=== PATIENT | male | born 1980 | race African-American/Black ===

== ENCOUNTER 2020-05-30 11:24 | Emergency (ER) | payer MEDICAID, SELFPAY ==
--- NOTE | ~2020-05-30 | CT_ITS ---
EXAMINATION: CT lumbar spine wo con DATE: 05/30/2020 13:00 INDICATION: Low back pain. TECHNIQUE: Computed tomography (CT) of the lumbar spine was performed without intravenous contrast. A utomated exposure control and iterative reconstruction technique were employed. The dose-length produ ct was 951.76 mGy-cm. COMPARISON: None FINDINGS: There is 6 degrees levocurvature of lumbar spine. Vertebral body heights are normal. There is mildly decreased disc height at L4-L5 and moderately decreased disc height at L5-S1. Osseous centr al spinal canal is developmentally small from L2 to L4. The following disc levels are specifically di scussed: L1-L2: The disc does not extend beyond the endplate margin. There is mild bilateral facet joint osteo arthritis. There is no neural foraminal stenosis. There is no central canal stenosis. L2-L3: The disc is bulging. There is mild bilateral facet joint osteoarthritis. There is no neural fo raminal stenosis. There is mild central canal stenosis. L3-L4: The disc is bulging. There is mild bilateral facet joint osteoarthritis. There is mild bilater al neural foraminal stenosis. There is mild central canal stenosis. L4-L5: The disc is bulging. There is mild bilateral facet joint osteoarthritis. There is mild bilater al neural foraminal stenosis. There is moderate central canal stenosis. L5-S1: The disc is bulging. There is mild bilateral facet joint osteoarthritis. There is mild bilater al neural foraminal stenosis. There is mild central canal stenosis. IMPRESSION: 1. Moderate lumbar spondylosis. Reviewed, dictated and finalized at location A.
[2020-05-30 11:31] VITALS: BP 152/100; PULSE 85; RESP 18; TEMP 36.8; O2SAT 99
--- NOTE | 2020-05-30 12:36 | PC.NURSE ---
LISANDRA Guajardo at bedside for assessment.
--- NOTE | 2020-05-30 12:37 | ED.BACK ---
HPI - Back Pain/Injury General Chief Complaint: Back Pain/Injury Stated Complaint: my back is out Time Seen by Provider: 05/30/20 12:18 Source: patient Mode of arrival: wheelchair Limitations: no limitations History of Present Illness HPI Narrative: This is a 40-year-old male that presents the emergency department for low back pain since last night. Reports a history of bulging disks. Reports he is currently seeing a spine surgeon for this. Reports he had an injection in the back recently for his pain and will possibly be getting surgery. No new injuries or trauma. Reports a flare of his back pain since last night. Pain radiates down the legs. Is worse with movement and relieved with rest. He has not taken any pain medication yet today. Denies fever, saddle anesthesia, or bowel/bladder incontinence. Related Data Home Medications Medication Instructions Recorded Confirmed losartan 05/30/20 Allergies Allergy/AdvReac Type Severity Reaction Status Date / Time No Known Allergies Allergy Verified 05/30/20 13:41 Review of Systems Review of Systems: Narrative: CONSTITUTIONAL: Denies fever SKIN: Denies rash MUSCULOSKELETAL: Reports back pain, joint pain, and myalgia. NEUROLOGIC: Denies numbness, or weakness. All systems reviewed & are unremarkable except as noted in HPI and below PMFSH Past Medical History Medical History (Updated 05/30/20 @ 15:10 by Pippa Padilla PA-C) History of hypertension Social History Social History (Updated 05/30/20 @ 12:41 by Pippa Padilla PA-C) Substance use: never Exam Narrative: Exam Narrative: GENERAL: Well-appearing, well-nourished, and in no acute distress. HEAD: Normocephalic, atraumatic. EYES: EOMI. CHEST: Clear to auscultation. No respiratory distress. No wheezes rales or rhonchi HEART: Regular rate and rhythm. No murmur heard. Normal peripheral pulses. BACK: No midline spinal tenderness EXTREMITIES: Normal range of motion. No edema. Strength equal in bilateral lower extremities (5/5) SKIN: Warm, dry, no rash. NEURO: No focal deficits. Alert and oriented x3. PSYCH: Normal mood and affect Course Vital Signs Vital signs: Vital Signs Temperature 98.3 F 05/30/20 11:31 Pulse Rate 85 05/30/20 11:31 Respiratory Rate 18 05/30/20 11:31 Blood Pressure 152/100 H 05/30/20 11:31 Pulse Oximetry 99 05/30/20 11:31 Temperature 98.3 F 05/30/20 11:31 Pulse Rate 68 05/30/20 13:40 Respiratory Rate 18 05/30/20 13:40 Blood Pressure 160/120 H 05/30/20 13:40 Pulse Oximetry 97 05/30/20 13:40 MDM - Back Pain/Injury MDM Narrative Medical decision making narrative: Patient presents to the emergency department for low back pain since yesterday. No injury or trauma. Patient did report history of vertebral disc disease. Patient is neurologically intact. CT scan of the lumbar spine shows moderate lumbar spondylosis. Patient given Valium and Toradol in the ED with improvement. Is still having some difficulty ambulating. Patient reports he would like to go home and will follow-up with his spine surgeon. Would not like to stay for any further evaluation or pain control. Patient is stable and felt appropriate for further outpatient evaluation. He was given warnings to return to the ER Imaging Data Radiologist's impression: ITS Impressions Lumbar Spine CT 05/30/20 13:19 IMPRESSION: 1. Moderate lumbar spondylosis. Critical Care Time Critical Care Time Critical Care Time: No Discharge Plan Discharge Clinical Impression: Lumbar radiculopathy Patient Disposition: Home, Self-Care Condition: Stable Instructions: Back Pain (ED) Additional Instructions: Return to the ER if you experience weakness, numbness, bowel/bladder incontinence, or any other symptoms that are concerning to you Rest, use ice/heat, take anti-inflammatories (Aleve, Ibuprofen, Naproxen, etc) or Tylenol as needed for pain as well as muscle rel
[2020-05-30] MEDS: ACETAMINOPHEN 500 MG TABLET 1000 MG PO (13:29)
[2020-05-30] MEDS: KETOROLAC (*BKC) 60 MG/2 ML VIAL IM (13:30)
[2020-05-30 13:40] VITALS: BP 160/120; PULSE 68; RESP 18; O2SAT 97
[2020-05-30 16:00] VITALS: BP 153/90; PULSE 58; RESP 18; TEMP 36.9; O2SAT 100
== END 2020-05-30 16:03 | disposition home or self-care (01) ==
PROVIDERS: Emergency Provider Emergency Medicine; PCP Internal Medicine
DX: M47.26 Other spondylosis with radiculopathy, lumbar region (principal); I10 Essential (primary) hypertension
CPT/HCPCS: 72131; 96372; 99284; A9270; J1885; J3360

== ENCOUNTER 2020-06-06 09:26 | Observation (INO) | payer MEDICAID, SELFPAY ==
--- NOTE | 2020-06-06 09:25 | ED.BACK ---
HPI - Back Pain/Injury General Chief Complaint: Back Pain/Injury Stated Complaint: Back pain History of Present Illness HPI Narrative: Intermittent back pain since work injury in 2019. He had seen a surgeon and surgery was recommended. He did not have a way to pay. He had back injections and things had been better. Worse for the past few weeks. Seen here last tuesday. CT of the lumbar spine showed spondolysis. He was sent home with valium and medrol dose pack. Thought things were getting better. Now he is not able to walk or do daily activities to take care of himself due to the pain. Related Data Home Medications Medication Instructions Recorded Confirmed losartan 05/30/20 Allergies Allergy/AdvReac Type Severity Reaction Status Date / Time No Known Allergies Allergy Verified 06/06/20 09:36 Review of Systems Review of Systems: All systems reviewed & are unremarkable except as noted in HPI and below Constitutional: Constitutional: Denies fever(s) Gastrointestinal: Gastrointestinal: Denies abdominal pain and Denies nausea Genitourinary: Genitourinary: Denies hematuria and Denies dysuria Musculoskeletal: Musculoskeletal: Reports back pain Neurologic: Denies dizziness and Denies focal weakness [facility] Past Medical History Medical History History of hypertension Family History Family History Grandparent Diabetes mellitus Hypertension Mother Leukemia Social History Social History Smoking status: Never smoker Alcohol intake: unknown Substance use: never Substance use type: prescription drug Gender identity (if verbalized by the patient): Male Spiritual care concerns: No Exam Const: General: healthy appearing, no acute distress and alert Orientation/consciousness: patient oriented x3 HENMT: Head: normal to inspection Neck: Neck: normal visual inspection and no lymphadenopathy Chest: Chest palpation & inspection: no tenderness Resp: Effort & Inspection: normal respiratory effort Auscultation: clear to auscultation bilaterally, no rales, no rhonchi and no wheezes Cardio: Jugular venous distension: no JVD Rate: regular rate Rhythm: regular rhythm Heart sounds: no murmurs GI: Inspection: non-distended GI Palp: Yes Soft to palpation and No Tenderness to palpation present (GI) Back/Spine/Pelvis: Other: Lumbar paraspinal tnederness Skin: General skin exam: normal color Neuro: General: patient oriented x3 and moves all extremities Speech: normal speech Extrem: General: no edema Psych: Appearance: well kempt Affect: normal affect Course Vital Signs Vital signs: Vital Signs Temperature 37.2 C 06/06/20 09:31 Pulse Rate 102 H 06/06/20 09:31 Respiratory Rate 18 06/06/20 09:31 Blood Pressure 162/104 H 06/06/20 09:31 Pulse Oximetry 98 06/06/20 09:31 Temperature 36.7 C 06/06/20 12:26 Pulse Rate 84 06/06/20 12:26 Respiratory Rate 16 06/06/20 12:26 Blood Pressure 156/92 H 06/06/20 12:26 Pulse Oximetry 100 06/06/20 12:26 MDM - Back Pain/Injury MDM Narrative Medical decision making narrative: No indication for emergent imaging. Will admit for pain control and physical therapy evaluation. Differential Diagnosis Differential diagnosis: Likely lumbar radiculopathy, sciatica and other (disc herniation) Medical Records Attestation: I reviewed the patient's medical records. Lab Data Attestation: I reviewed the patient's lab results. Discharge Plan Discharge Clinical Impression: Low back pain Patient Disposition: Still a Patient Condition: Stable Interventions: Discharge Disposition Last Done: 06/06/20 12:47 IV Stop Time Documented Last Done: 06/06/20 12:47 Discharge Date/Time: 06/06/20 12:48
[2020-06-06 09:31] VITALS: BP 162/104; PULSE 102; RESP 18; TEMP 37.2; O2SAT 98
[2020-06-06] MEDS: MORPHINE SULFATE 10 MG/ML AMP 4 MG IM (09:59)
[2020-06-06 11:40] VITALS: BP 156/101; PULSE 75; RESP 18; O2SAT 100
[2020-06-06 12:26] VITALS: BP 156/92; PULSE 84; RESP 16; TEMP 36.7; O2SAT 100
[2020-06-06 13:00] VITALS: BP 148/90; PULSE 75; RESP 18; TEMP 36.7; O2SAT 95
--- NOTE | 2020-06-06 13:00 | PC.NURSE ---
This patient, Charisse Ambrosio, was admitted to [facility] Surg Room 309-01. Patient/family oriented to hospital policies and general routines including ID bracelet, bed and alarms, visiting hours, pain management, procedures, bathroom and other care routines, personal items, smoking policy, room service/diet, and visiting hours. Valuables list has been completed. Information on how to activate the Rapid Response Team has been discussed. Patient/Family are encouraged to report perceived risks to care and to ask questions if they do not understand what they are told or what they should do.
[2020-06-06 13:18] VITALS: BMI 32.6
[2020-06-06] MEDS: MORPHINE SULFATE 4 MG/ML INJ 2 MG IV PUSH (16:46)
--- NOTE | 2020-06-06 17:35 | PC.NURSE ---
Dr Rodgers okayed patient to go home.
--- NOTE | 2020-06-06 18:31 | PM.IMHP ---
H&P: HPI History of Present Illness Date/Time: 06/06/20 18:31 Chief complaint: Intractable back pain Narrative: Charisse Ambrosio is a 40 year old male who had a back injury at work last year in 2019. The patient stated that he was kneeling on his knees and shoveling sand and then he got out of the head and started jumping the pockets of stand when he noticed he had some back pain. He has been seeing a workman's comp physician who stated that sometime in the near future he may need to have surgery but not at this time. The patient stated that he has had injections in his back and that helps somewhat. The patient stated that it does not hurt all the time but the last several days it has been the worst. The patient did come to the emergency room on 05/30/20. the patient received a CT scan which was read as moderate lumbar spondylosis. He was discharged with Valium and a Medrol Dosepak. The patient stated that he was given this on Tuesday and completed by Tuesday. The patient stated that the pain is so bad that he cannot get out of bed. He states that he has radiculopathy that when he gets up and walks that the pain shoots down his legs especially the left 1. He feels like he cannot hold made on the left leg. He had a MRI and November this year. He stated that it was performed at some [facility]. The patient also was diagnosed with hypertension since this injury occurred. Patient did not take his losartan today. His blood pressure ws noted to be 148/ 90. The patient was given morphine in the emergency room. He said that it made him feel very sleepy but did take the pain pulmonary off the other. The patient has tried NSAIDs at home and also he has tried [facility] appointment and he has also tried heat and cold packs. The patient states that he has pain from his lower back and wraps around his pelvic area radiates especially down the left leg sometimes the right leg. He is he is continent of bowel and bladder. He has not lost any sensation is lower extremities. He stated that he recently started taking gabapentin which helps some but makes him very sleepy. No further imaging was obtained today. No lab work was obtained today. I have spent approximately 1 hour with the patient reviewing information and history. Date of service 06/06/2020 Review of Systems Review of Systems: All systems reviewed & are unremarkable except as noted in HPI and below Constitutional: Constitutional: Reports as per HPI and Reports no additional constitutional complaints Eyes: Eyes: Reports as per HPI and Reports no additional eye complaints ENT: Reports system reviewed and no additional complaints, except as documented and Reports Normal hearing present Cardiovascular: Cardiovascular: Reports no additional cardiovascular complaints Respiratory: Respiratory: Reports no additional respiratory complaints and Reports no additional respiratory complaints Gastrointestinal: Gastrointestinal: Reports as per HPI and Reports no additional gastrointestinal complaints Musculoskeletal: Musculoskeletal: Reports no additional musculoskeletal complaints Integumentary/Breasts: Skin/Breast: Reports system reviewed and no additional complaints, except as docu and Reports as per HPI Neurologic: Reports system reviewed and no additional complaints, except as documented, Reports as per HPI and Reports Normal hearing present Psychiatric: Psychiatric: Reports no additional psychiatric complaints and Reports as per HPI Endocrine: Endocrine: Reports no additional endocrine complaints Hematologic/Lymphatic: Hematologic/Lymphatic: Reports no additional hematologic/lymphatic complaints Allergic/Immunologic: Allergic/Immunologic: Reports no additional allergic/immunologic complaints [facility] Past Medical History Medical History (Updated 06/06/20 @ 18:39 by Brenda Bansal NP) Bulging discs L1-L2 the disc does not extend beyond the endplate marginal. Mild bilateral
[2020-06-06] MEDS: KETOROLAC 15 MG/ML VIAL (*BKC) IV PUSH (19:45)
[2020-06-06] MEDS: GABAPENTIN 300 MG CAPSULE PO (21:14)
[2020-06-06] MEDS: BACLOFEN 10 MG TABLET PO (21:14)
[2020-06-06 22:00] VITALS: BP 146/81; PULSE 67; RESP 18; TEMP 36.6; O2SAT 99
[2020-06-07] MEDS: KETOROLAC 15 MG/ML VIAL (*BKC) IV PUSH ×2 (05:06→13:05)
[2020-06-07] MEDS: BACLOFEN 10 MG TABLET PO ×2 (05:10→13:11)
[2020-06-07] MEDS: GABAPENTIN 300 MG CAPSULE PO ×2 (05:10→13:11)
[2020-06-07 06:00] VITALS: BP 141/79; PULSE 61; RESP 18; TEMP 36.5; O2SAT 99
[2020-06-07 06:34] LABS: Basophils Absolute Auto 0.1 K/mm3 (0.0-0.1); Basophils Percent Auto 0.6 % (0.2-1.2); Eosinophils Absolute Auto 0.1 K/mm3 (0-0.3); Eosinophils Percent Auto 1.5 % (0-4.4); Hematocrit 37.2 % (42.0-52.0); Hemoglobin 12.9 g/dL (14.0-18.0); Immature Granulocyte Absolute 0.02 K/mm3 (0.00-0.031); Immature Granulocyte Percent A 0.3 % (0-0.5); Lymphocytes Absolute Auto 2.88 K/mm3 (0.9-3.2); Lymphocytes Percent Auto 36.8 % (18.3-44.2); Mean Corpuscular HGB Conc 34.7 g/dl (32-36); Mean Corpuscular Hemoglobin 28.5 pg (26-34); Mean Corpuscular Volume 82.1 fl (80-100); Mean Platelet Volume 9.4 fl (7.4-10.4); Monocytes Absolute Auto 0.9 K/mm3 (0.1-0.6); Monocytes Percent Auto 11.1 % (2.6-8.5); Neutrophils Absolute Auto 3.9 K/mm3 (1.3-6.7); Neutrophils Percent Auto 49.7 % (45.5-73.1); Platelet Count Result 324 k/mm3 (150-375); Red Blood Count 4.53 M/mm3 (4.6-6.20); Red Cell Distribution Width 13.4 % (11.5-14.5); White Blood Count 7.8 K/mm3 (4.5-10.0)
[2020-06-07 06:45] LABS: Alanine Aminotransferase 13 U/L (4-50); Alkaline Phosphatase 49 U/L (38-126); Anion Gap 10.6 mmol/L (7-16); Aspartate Amino Transferase 22 U/L (17-59); Bilirubin,Total 1.7 mg/dL (0.2-1.3); Blood Urea Nitrogen 18 mg/dL (9-20); Calcium 8.9 mg/dL (8.4-10.2); Carbon Dioxide 28 mmol/L (22-30); Chloride 100 mmol/L (98-107); Estimated CRCL calculation 74 ml/min; Estimated Glomerular Filt Rate > 60; Glucose 105 mg/dL (75-110); Magnesium 2.1 mg/dL (1.6-2.3); Potassium 3.6 mmol/L (3.4-5.0); Sodium 135 mmol/L (137-145)
[2020-06-07] MEDS: LOSARTAN POTASSIUM 100 MG TABLET PO (08:35)
[2020-06-07 09:26] LABS: Immature Reticulocyte Fraction 12.3 % (3.0-15.9); Reticulocyte Hemoglobin Conten 33.2 pg (28.2-35.7); Reticulocyte Percent 2.15 % (0.7-4.3)
[2020-06-07 10:19] LABS: Alanine Aminotransferase 15 U/L (4-50); Albumin Level 4.5 g/dL (3.5-5.1); Alkaline Phosphatase 55 U/L (38-126); Anion Gap 13.7 mmol/L (7-16); Aspartate Amino Transferase 27 U/L (17-59); Blood Urea Nitrogen 19 mg/dL (9-20); Calcium 9.4 mg/dL (8.4-10.2); Carbon Dioxide 30 mmol/L (22-30); Chloride 98 mmol/L (98-107); Estimated CRCL calculation 74 ml/min; Estimated Glomerular Filt Rate > 60; Glucose 126 mg/dL (75-110); Potassium 3.7 mmol/L (3.4-5.0); Sodium 138 mmol/L (137-145)
[2020-06-07 10:37] LABS: Iron 92 ug/dL (49-181)
[2020-06-07 10:47] LABS: Percent Iron Saturation 28 % (20-50)
--- NOTE | 2020-06-07 10:59 | PM.IMPN ---
Subjective Date/time seen: 06/07/20 10:59 Interval history: Admitted 06/06 with low back pain while going to [employer]. Injury at work last year. 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 No recent injury. Pain moderate to severe. Better with analgesics. Worse with standing or moving. Better with rest. Some radiation to buttocks, sometimes to left posterior thigh, sometimes to right posterior thigh. Struggled to walk to bathroom with walker this AM. No numbness or weakness. No GI or c/o. No cp or sob. Exam Narrative: Exam Narrative: HEENT: EOMI, PERRL, sclerae nonicteric, pharyngeal mucosa pink and intact NECK: No JVD CHEST: Clear to auscultation. Normal effort. HEART: NL S1/S2, regular, no murmur ABDOMEN: BS+, soft, nontender, no mass, no bruits EXTREMITIES: No cyanosis, edema, or clubbing NEUROLOGIC: CN intact and symmetric to inspection. DTRs intact at BTKA. No clonus. MUSCULOSKELETAL: Tone and strength symmetric.SLR negative but with severe pain in LOW BACK (not legs or buttocks) at about 30 degrees bilaterally. PSYCH: Alert. Oriented to person, place, and time. Objective Data Vital Signs Vital Signs: Vital Signs - 24 hr 06/06/20 11:40 06/06/20 12:26 06/06/20 13:00 Temperature 98.1 F 98.0 F Pulse Rate 75 84 75 Respiratory Rate 18 16 18 Blood Pressure 156/101 H 156/92 H 148/90 H Pulse Oximetry 100 100 95 06/06/20 22:00 06/07/20 06:00 Temperature 97.9 F 97.7 F Pulse Rate 67 61 Respiratory Rate 18 18 Blood Pressure 146/81 H 141/79 H Pulse Oximetry 99 99 Intake/Output Intake/Output: Intake & Output 06/04/20 06/05/20 06/06/20 06/07/20 23:59 23:59 23:59 23:59 Intake Total 320 860 Output Total 350 300 Balance -30 560 Meds/Results Medications: Active Medications Generic Name Dose Route Start Last Admin Trade Name Freq PRN Reason Stop Dose Admin Hydrocodone Bitart/Acetaminophen 1 tab 06/06/20 18:28 Libby 5-325 Mg PO Q6H PRN Pain Rated 4-6 Baclofen 10 mg 06/06/20 22:00 06/07/20 05:10 Lioresal Po PO 10 mg Q8HR MICHELLE Administration Gabapentin 300 mg 06/06/20 22:00 06/07/20 05:10 Neurontin PO 300 mg Q8HR MICHELLE Administration Ketorolac Tromethamine 15 mg 06/06/20 18:26 06/07/20 05:06 Toradol Inj IV PUSH 15 mg Q6H PRN Administration Pain Rated 4-6 Losartan Potassium 100 mg 06/07/20 09:00 06/07/20 08:35 Cozaar PO 100 mg DAILY MICHELLE Administration Morphine Sulfate 2 mg 06/06/20 11:49 06/06/20 16:46 Morphine Sulfate Inj IV PUSH 2 mg Q2H PRN Administration Pain Rated 7-10 Labs Labs: Laboratory Results - last 24 hr 06/07/20 06/07/20 06/07/20 06:02 06:02 06:02 WBC 7.8 RBC 4.53 L Hgb 12.9 L Hct 37.2 L MCV 82.1 MCH 28.5 MCHC 34.7 RDW 13.4 Plt Count 324 MPV 9.4 Immature Gran % (Auto) 0.3 Neut % (Auto) 49.7 Lymph % (Auto) 36.8 [place] % (Auto) 11.1 H Eos % (Auto) 1.5 Baso % (Auto) 0.6 Lymph # (Auto) 2.88 [place] # (Auto) 0.9 H Eos # (Auto) 0.1 Baso # (Auto) 0.1 Abs Immat Gran (auto) 0.02 Absolute Neuts (auto) 3.9 Absolute Nucleated RBC 0.0 Nucleated RBC % 0.0 Absolute Retic 0.10 L Percent Retic 2.15 Immature Retic Fraction 12.3 Retic Hgb Content 33.2 Sodium 135 L Potassium 3.6 Chloride 100 Carbon Dioxide 28 Anion Gap 10.6 BUN 18 Creatinine 1.30 Estim Creat Clear Calc 74 Estimated GFR > 60 Glucose 105 Calcium 8.9 Magnesium 2.1 Iron TIBC Total Bilirubin 1.7 H Direct Bilirubin AST 22 ALT 13 Alkaline Phosphatase 49 Total Protein 8.0 Albumin 4.0 06/07/20 06/07/20 09:44 09:44 WBC RBC Hgb Hct MCV MCH MCHC RDW Plt Count MPV Immature Gran % (Auto) Neut % (Auto) Lymph % (Auto) [place] % (Auto) Eos % (Auto) Baso % (Auto) Lymph # (Auto) [place] # (Auto) Eos # (Auto) Baso # (Auto) Abs Immat Gran (auto)
[2020-06-07 11:27] LABS: Folic Acid 12.1 ng/mL (2.76->20)
[2020-06-07 14:00] VITALS: BP 139/98; PULSE 98; RESP 20; TEMP 36.3; O2SAT 99
[2020-06-07 14:22] LABS: Vitamin B12 < 159.0 pg/mL (239-931)
--- NOTE | 2020-06-07 16:54 | PM.DS ---
DS: Admitting Diagnosis Admitting Diagnosis Admitting Diagnosis: intractable low back pain DS: Discharge Diagnosis Discharge Diagnosis (1) Low back pain: Qualifiers: Back pain laterality: midline Chronicity: unspecified Sciatica laterality: bilateral sciatica Sciatica presence: with sciatica Qualified Code(s): M54.41 - Lumbago with sciatica, right side; M54.42 - Lumbago with sciatica, left side Code(s): M54.5 - Low back pain Status: Acute Assessment and Plan: likely due to exacerbation chronic back pain related to degenerative disc disease and osteoarthritis of the spine continue gabapentin, baclofen, Toradol utilize walker increase activity slowly as tolerated discussed importance of good body mechanics, core strengthening, and low-impact cardio respiratory exercise (2) Hypertension: Qualifiers: Hypertension type: unspecified Qualified Code(s): I10 - Essential (primary) hypertension Code(s): I10 - Essential (primary) hypertension Status: Chronic Assessment and Plan: home regimen continued and remained controlled DS: Summary Hospital Course Reason for hospitalization: intractable low back pain Hospital Course: Admitted 06/06 with low back pain while going to [employer]. Injury at work last year. Currently laid off from [employer] work. No recent injury. Pain moderate to severe. Better with analgesics. Worse with standing or moving. Better with rest. Some radiation to buttocks, sometimes to left posterior thigh, sometimes to right posterior thigh. Struggled to walk to bathroom with walker this AM. No numbness or weakness. No GI or c/o. No cp or sob. patient was gradually able increases walking with walker. Pain was tolerable with combination of baclofen gabapentin and Toradol. He wished to go home and follow-up as an outpatient Time Spent with Patient Time attestation: Total time spent providing and/or coordinating discharge services: 35 minutes Exam Narrative: Exam Narrative: HEENT: EOMI, PERRL, sclerae nonicteric, pharyngeal mucosa pink and intact NECK: No JVD CHEST: Clear to auscultation. Normal effort. HEART: NL S1/S2, regular, no murmur ABDOMEN: BS+, soft, nontender, no mass, no bruits EXTREMITIES: No cyanosis, edema, or clubbing NEUROLOGIC: CN intact and symmetric to inspection. DTRs intact at BTKA. No clonus. MUSCULOSKELETAL: Tone and strength symmetric.SLR negative but with severe pain in LOW BACK (not legs or buttocks) at about 30 degrees bilaterally. PSYCH: Alert. Oriented to person, place, and time. DS: Data Data Completed and Pending Labs on day of discharge: Labs from last 24 hours 06/07/20 06/07/20 06/07/20 09:44 09:44 09:44 WBC RBC Hgb Hct MCV MCH MCHC RDW Plt Count MPV Immature Gran % (Auto) Neut % (Auto) Lymph % (Auto) [place] % (Auto) Eos % (Auto) Baso % (Auto) Lymph # (Auto) [place] # (Auto) Eos # (Auto) Baso # (Auto) Abs Immat Gran (auto) Absolute Neuts (auto) Absolute Nucleated RBC Nucleated RBC % Absolute Retic Percent Retic Immature Retic Fraction Retic Hgb Content Sodium 138 Potassium 3.7 Chloride 98 Carbon Dioxide 30 Anion Gap 13.7 BUN 19 Creatinine 1.30 Estim Creat Clear Calc 74 Estimated GFR > 60 Glucose 126 H Calcium 9.4 Magnesium Iron 92 TIBC 333 % Saturation 28 Total Bilirubin 2.0 H Direct Bilirubin 0.0 AST 27 ALT 15 Alkaline Phosphatase 55 Total Protein 9.0 H Albumin 4.5 Vitamin B12 < 159.0 L Folate 12.1 TSH (Reflex) 2.130 06/07/20 06/07/20 06/07/20 06:02 06:02 06:02 WBC 7.8 RBC 4.53 L Hgb 12.9 L Hct 37.2 L MCV 82.1 MCH 28.5 MCHC 34.7 RDW 13.4 Plt Count 324 MPV 9.4 Immature Gran % (Auto) 0.3 Neut % (Auto) 49.7 Lymph % (Auto) 36.8 [place] % (Auto) 11.1 H Eos % (Auto)
== END 2020-06-07 17:50 | disposition home or self-care (01) ==
LOC: ANHED 09:46 → ANH3MEDSUR 13:47
PROVIDERS: Nurse Practitioner; Admitting Provider Family Medicine; Emergency Provider Emergency Medicine; PCP Internal Medicine; Visit Provider Internal Medicine
DX: M54.41 Lumbago with sciatica, right side (principal); M54.42 Lumbago with sciatica, left side; M51.27 Other intervertebral disc displacement, lumbosacral region; I10 Essential (primary) hypertension
CPT/HCPCS: 36415; 80048; 80053; 80076; 82607; 82746; 83540; 83550; 83735; 84443; 85025; 85046; 96372; 96374; 96375; 96376; 97161; 97165; 99285; A9270; G0378; G0379; J1885; J2270

== ENCOUNTER 2021-06-16 11:02 | Emergency (ER) | payer OTHER, SELFPAY ==
--- NOTE | 2021-06-16 11:11 | ED.URI ---
HPI - URI/Sore Throat General Chief Complaint: Upper Respiratory Infection Stated Complaint: COUGH Time Seen by Provider: 06/16/21 11:11 Source: patient and RN notes reviewed Mode of arrival: ambulatory Limitations: no limitations History of Present Illness HPI Narrative: 41-year-old male presents to the [facility] with complaints of being exposed at work over the last 2 weeks with 2-3 people that tested positive for Covid. Patient states that his last Covid vaccine was on 08 June. States he has had intermittent cough for a while. Denies fevers, chest pain, abdominal pain. Related Data Home Medications Medication Instructions Recorded Confirmed gabapentin 300 mg PO DAILY 06/16/21 06/16/21 losartan-hydrochlorothiazide 1 tablet PO DAILY 06/16/21 06/16/21 tizanidine 4 mg PO DAILY 06/16/21 06/16/21 Allergies Allergy/AdvReac Type Severity Reaction Status Date / Time No Known Allergies Allergy Verified 06/16/21 11:11 Review of Systems Review of Systems: All systems reviewed & are unremarkable except as noted in HPI and below Constitutional: Constitutional: Reports no additional constitutional complaints, Denies chills and Denies fever(s) Eyes: Eyes: Reports no additional eye complaints ENT: Reports system reviewed and no additional complaints, except as documented Cardiovascular: Cardiovascular: Reports no additional cardiovascular complaints and Denies chest pain Respiratory: Respiratory: Reports as per HPI, Reports cough (States no different than his normal), Denies dyspnea and Denies wheezing Gastrointestinal: Gastrointestinal: Reports no additional gastrointestinal complaints Musculoskeletal: Musculoskeletal: Reports no additional musculoskeletal complaints Integumentary/Breasts: Skin/Breast: Reports system reviewed and no additional complaints, except as docu Neurologic: Reports system reviewed and no additional complaints, except as documented Psychiatric: Psychiatric: Reports no additional psychiatric complaints Allergic/Immunologic: Allergic/Immunologic: Reports no additional allergic/immunologic complaints [facility] Past Medical History Medical History (Updated 06/16/21 @ 11:24 by mAie Awad) Bulging discs L1-L2 the disc does not extend beyond the endplate marginal. Mild bilateral facet joint osteoarthritis L2-L3 the disc is bulging. Mild bilateral facet joint osteoarthritis. L3-L4 the disc is bulging. Mild bilateral facet joint osteoarthritis. L4-L5 to discuss bulging. There is mild bilateral facet joint osteoarthritis. L 5 to S1 the discuss bulging. Mild bilateral facet joint osteoarthritis. History of hypertension Hypertension Surgical History Surgical History H/O sinus surgery 2002 Family History Family History Grandparent Diabetes mellitus Hypertension Mother Lupus Acute myocardial infarction Heart disease Seizure Social History Social History Social History: The patient works what once was known as [employer]. He is . He is lifelong nonsmoker. He denies any marijuana or illicit drug use. The patient has 5 children. 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 He desires to be a full code. He is currently laid off of work. He denies any alcohol use. Smoking status: Never smoker Alcohol intake: unknown Substance use: never Substance use type: prescription drug Gender identity (if verbalized by the patient): Male Spiritual care concerns: No Comments At the time of my signature, I reviewed and agree with the nursing past medical, surgical, social, and family history. There is no relevant family history pertinent to the patient complaint. Exam Const: General: healthy appearing, no acute distress and alert Nutritional Appearance: well nourished Orientation/consciousne
[2021-06-16 11:13] VITALS: BP 137/93; PULSE 67; RESP 16; TEMP 36.7; O2SAT 100
[2021-06-16 11:21] VITALS: BP 137/93; PULSE 67; RESP 16; TEMP 36.7; O2SAT 100
== END 2021-06-16 11:31 | disposition home or self-care (01) ==
PROVIDERS: Emergency Provider Nurse Practitioner
DX: Z20.822 Contact with and (suspected) exposure to COVID-19 (principal)
CPT/HCPCS: 99211; G0463

== ENCOUNTER → 2021-06-19 03:42 | Outpatient (CLI) | payer OTHER, SELFPAY ==
[2021-06-20 03:36] LABS: SARS-CoV-2 RNA PCR Negative
== END ==
PROVIDERS: PCP Internal Medicine; Visit Provider Nurse Practitioner
DX: Z20.822 Contact with and (suspected) exposure to COVID-19 (principal)
CPT/HCPCS: C9803; U0003; U0005

== ENCOUNTER 2024-05-28 08:32 | Emergency (ER) | payer OTHER, SELFPAY ==
[2024-05-28 08:37] VITALS: BP 140/88; PULSE 97; RESP 18; TEMP 36.6; O2SAT 98
[2024-05-28 08:45] VITALS: O2SAT 99
--- NOTE | 2024-05-28 09:09 | ED.URI ---
HPI - URI/Sore Throat General Chief Complaint: Upper Respiratory Infection Stated Complaint: upper respiratory Time Seen by Provider: 05/28/24 08:35 Source: patient Mode of arrival: ambulatory Limitations: no limitations History of Present Illness HPI Narrative: This is a 44-year-old male who presents to the ED for chief complaint of nasal congestion, rhinorrhea, cough for the past month. Reports that he has taken multiple [id number] cold, sinus, allergy meds with no relief. Denies sore throat, headache, neck pain, chest pain, shortness of breath, abdominal pain, nausea, vomiting. Related Data Home Medications Medication Instructions Recorded Confirmed gabapentin 300 mg capsule 300 mg PO DAILY 06/16/21 06/16/21 losartan 100 1 tablet PO DAILY 06/16/21 06/16/21 mg-hydrochlorothiazide 12.5 mg tablet tizanidine 4 mg tablet 4 mg PO DAILY 06/16/21 06/16/21 Allergies Allergy/AdvReac Type Severity Reaction Status Date / Time No Known Allergies Allergy Verified 05/28/24 08:40 Review of Systems Review of Systems: All systems as dictated in [facility] Past Medical History Medical History (Updated 05/28/24 @ 09:14 by Jesse England PA-C) Bulging discs L1-L2 the disc does not extend beyond the endplate marginal. Mild bilateral facet joint osteoarthritis L2-L3 the disc is bulging. Mild bilateral facet joint osteoarthritis. L3-L4 the disc is bulging. Mild bilateral facet joint osteoarthritis. L4-L5 to discuss bulging. There is mild bilateral facet joint osteoarthritis. L 5 to S1 the discuss bulging. Mild bilateral facet joint osteoarthritis. History of hypertension Hypertension Surgical History Surgical History H/O sinus surgery 2001 Family History Family History Grandparent Diabetes mellitus Hypertension Mother Lupus Acute myocardial infarction Heart disease Seizure Social History Social History Social History: The patient works what once was known as [employer]. He is . He is lifelong nonsmoker. He denies any marijuana or illicit drug use. The patient has 5 children. 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 He desires to be a full code. He is currently laid off of work. He denies any alcohol use. Smoking status: Never smoker Alcohol intake: unknown Substance use: never Substance use type: prescription drug Gender identity (if verbalized by the patient): Male Spiritual care concerns: No Exam Narrative: GENERAL: Well-appearing, well-nourished, and in no acute distress. HEAD: Normocephalic, atraumatic. EYES: PERRLA and EOMI. ENT: Tympanic membranes obstructed by cerumen impaction bilaterally. Nares clear, no rhinorrhea or epistaxis. Mucous membranes moist. Oropharynx without tonsillar hypertrophy exudate or other lesions. NECK: Supple. No adenopathy or masses. CHEST: No respiratory distress. Clear to auscultation. No wheezes rales or rhonchi HEART: Regular rate and rhythm. No murmur heard. Normal peripheral pulses. ABDOMEN: Soft, nontender, nondistended, normal active bowel sounds. MSK: Normal range of motion. No edema. SKIN: Warm, dry, no rash. NEURO: Alert and oriented x4. No focal deficits. PSYCH: Normal mood and affect. Course Vital Signs Vital signs: Vital Signs Temperature 97.9 F 05/28/24 08:37 Pulse Rate 97 05/28/24 08:37 Respiratory Rate 18 05/28/24 08:37 Blood Pressure 140/88 05/28/24 08:37 Pulse Oximetry 98 05/28/24 08:37 Oxygen Delivery Room Air 05/28/24 08:37 Temperature 97.9 F 05/28/24 08:37 Pulse Rate 97 05/28/24 08:37 Respiratory Rate 18 05/28/24 08:37 Blood Pressure 140/88 05/28/24 08:37 Pulse Oximetry 99 05/28/24 08:45 Oxygen Delivery Room Air 05/28/24 08:45 MDM - URI/Sore Thr
== END 2024-05-28 09:20 | disposition home or self-care (01) ==
PROVIDERS: Emergency Provider Physician Assistant
DX: J32.9 Chronic sinusitis, unspecified (principal); I10 Essential (primary) hypertension; M51.36 Other intervertebral disc degeneration, lumbar region; Z79.899 Other long term (current) drug therapy
CPT/HCPCS: 99283

== ENCOUNTER 2025-01-10 12:01 | Emergency (ER) | payer OTHER, SELFPAY ==
--- NOTE | ~2025-01-10 | XR_ITS ---
EXAMINATION: XR hand LT min 3V DATE: 01/10/2025 12:43 INDICATION: Left hand pain and swelling. TECHNIQUE: 3 views of left hand were obtained. COMPARISON: None. FINDINGS: Alignment is normal. No fracture. There is mild osteoarthritis of first carpometacarpal quang nt. IMPRESSION: 1. Mild osteoarthritis of first carpometacarpal joint. Reviewed, dictated and finalized at location A. DRESSER
[2025-01-10 12:22] VITALS: BP 148/91; PULSE 64; RESP 16; TEMP 36.6; O2SAT 98
--- OUTSIDE RECORDS SUMMARY | 2025-01-10 13:27 | XMS_ITS | Continuity of Care Document ---
Author Organization [facility] Address [address] [place] [address] Phone Care Team Providers Care Processing Engineer Name Role Phone Edvin Gilbert MD Unavailable Unavai lable Allergies, Adverse Reactions, Alerts Substance Reaction Status Criticality No Known Allergies Active No Inform ation Medications Medication Instructions Dosage Effective Dates (start - stop) Status Comments gabapentin 300 mg capsule take 1 capsule by oral route 3 times every day 300 MG - No Longer Active Procedures Procedure Date X-ray exam Lumbar 2-3 views Office/outpatient visit,est, mod 2021 Supplemental Report X-ray exam Lumbar 2-3 views Global/Postop followup visit Supplemental Report Medical Record Copy Medical Record Copy Per Page Affidavit Supplemental Report Global/Postop followup visit X-ray exam Lumbar 2-3 views Disability Form Supplemental Report Office/outpatient visit,est, mod 2021 Injection Transforaminal, single, lumbar /sacral SNRB Omnipaque, 300-399 mg/ml, per ml 2021 Kenalog 40mg Supplemental Report Office/outpatient visit,est, mod 2021 Injection Transforaminal, single, lumbar /sacral SNRB Omnipaque, 300-399 mg/ml, per ml 2021 Kenalog 40mg/mL Medical Record Copy Medical Record Copy Per Page Xray Copy Disability Form Office/outpatient visit,est, mod 2020 MRI lumbar spine W/Wo Contrast Office/outpatient visit,est, mod 2020 Supplemental Report X-ray exam Lumbar 2-3 views Supplemental Report Office/outpatient visit,est, mod 2020 Medical Record Copy Medical Record Copy Per Page Affidavit Office/outpatient visit,est, mod 2020 Supplemental Report Global/Postop followup visit Office/outpatient visit,new, low 2020 Supplemental Report X-ray exam Lumbar 2-3 views Advance Directives Directive Yes / No Effective Date File Name No Information Encounters Encounter Description Practice Location Reason(s) For Visit Diagnoses Date Provider Providers Copied on Encounter Office/outpa tient visit,est, mod [facility], [address] [address] [facility], [place], [place], [id number], [place] tel:[phone] [facility] Lumbar (chief complaint)l umbar spine (chief complaint) Fusion of spine, lumbar region 2 Ofelia Pardo . [address] [facility], [place], [place], [address], [place]. tel:[phone] [facility], [address], [id number], [place] tel:[phone] [facility] Lumbar (chief complaint)l umbar spine (chief complaint) Fusion of spine, lumbar region 2 O'Melissa Christopher . [address] [facility] [place] [address], [place], [place], [address], [place]. tel:[phone] [facility], [address] [address], [place], [place], [address], [place] tel:[phone] [facility] No Information 2 Administrat disha Provider. [address], [id number], [place]. tel:[phone] [facility], [address], [id number], [place] tel:[phone] [facility] Lumbar (chief complaint)l umbar spine (chief complaint) Other intervertebr al disc displacement , lumbosacral regionRadicu lopathy, site unspecified 2 O'Melissa Christbessieer . [address] [address], [place], [place], [address], [place]. tel:[phone] [facility], [address], [id number], [place] tel:[phone] [facility] No Information 2 O'Melissa Christopher . [address], [id number], [place]. tel:[phone] Office/outpa tient visit,est, mod [facility], [address] [address], [place], [place], [address], [place] tel:[phone] [facility] Lumbar (chief complaint)l umbar spine (chief complaint) Radiculopath y, site unspecifiedO ther intervertebr al disc displacement , lumbosacral region 2 O'Boynick Christopher . [address] [facility], [place], [place], [address], [place]. tel:[phone] [facility], [address] [address], [place], [place], [address], [place] tel:[phone] [facility] Lumbar (chief complaint)l umbar spine (chief complaint) Radiculopath y, site unspecifiedO ther intervertebr al disc displacement , lumbosacral region Mar-0 - 2 O'Boynick Christopher . [address] [facility], [place], [place], [address], [place]. tel:[phone] Office/outpa tient visit,est, mod [facility], [address] [address], [place], [place], [address], [place] tel:[phone] [facility] Lumbar (chief complaint)l umbar spine (chief complaint) Other intervertebr al disc displacement , lumbosacral regionRadicu lopathy, site unspecifiedL ow back pain, unspecified Feb-2 2 O'Melissa Christopher . [address] [facility], [place] [address], [place], [place], [address], [place]. tel:[phone] [facility], [address], [id number], [place] tel:[phone] [facility] Lumbar (chief complaint)l umbar spine (chief complaint) Radiculopath y, site unspecifiedO ther intervertebr al disc displacement , lumbosacral region Feb-1 2 O'Boynick Christopher . [address] [facility], [facility] [address], [place], [place], [address], [place]. tel:[phone] [facility], [address] [address], [place], [place], [address], [place] tel:[phone] [facility] Other intervertebr al disc displacement , lumbosacral regionRadicu lopathy, site unspecifiedL ow back pain, unspecified Feb-0 - 2 Ofelia Pardo . [address] [facility], [facility] [address], [place], [place], [address], [place]. tel:[phone] [facility], [address] [address], [place], [address], [place] tel:[phone] [facility] No Information 1 Administrat disha Provider. [address] [facility], [place] [address], [place], [place], [address], [place]. tel:[phone] [facility], [address] [address], [place], [place], [address], [place] tel:[phone] [facility] No Information 1 Administrat disha Provider. [address] [facility], [place] [address], [place], [place], [address], [place]. tel:[phone] [facility], [address] [address], [place], [place], [id number], [place] tel:[phone] [facility] No Information 1 Ofelia Pardo . [address] [facility], [place] [address], [place], [place], [address], [place]. tel:[phone] Office/outpa tient visit,est, mod [facility], [address] [address], [place], [place], [address], [place] tel:[phone] [facility] Lumbar (chief complaint)l umbar spine (chief complaint) Radiculopath y, site unspecifiedO ther intervertebr al disc displacement , lumbosacral regionLow back pain Sep-1 1 Ofelia Pardo . [address] [facility], [place] [address], [place], [place], [address], [place]. tel:[phone] [facility], [address] [address], [place], [place], [address], [place] tel:[phone] [facility] Low back painRadiculo nicolas, site unspecified Sep-0 9-202 1 [facility]. [address] [facility], [place], [place], [address], [place]. tel:[phone] Referring Provider: Edvin Lizama, [address] [facility] [address], [place], [address]. tel:[phone] Office/outpa tient visit,est, [facility], [address] [facility] [address], [place], [place], [address], [place] tel:[phone] [facility] lumbar (chief complaint)l umbar spine (chief complaint) Low back painOther intervertebr al disc displacement , lumbosacral regionRadicu lopathy, site unspecified 1 Ofelia Pardo . [address] [facility], [address], [place], [place], [address], [place]. tel:[phone] Office/outpa tient visit,est, [facility], [address] [facility] [address], [place], [place], [address], [place] tel:[phone] [facility] lumbar (chief complaint)l umbar spine (chief complaint) Low back painOther intervertebr al disc displacement , lumbosacral regionRadicu lopathy, site unspecified 1 Ofelia Pardo . [address] [facility], [address], [place], [place], [address], [place]. tel:[phone] [facility], [address] [facility] [address], [place], [address], [place] tel:[phone] [facility] No Information 1 Administrat disha Provider. [address] [facility], [facility] [address], [place], [place], [address], [place]. tel:[phone] Office/outpa tient visit,est, [facility], [address], [id number], [place] tel:[phone] [facility] lumbar (chief complaint)g eneral orthopedic (chief complaint) Other intervertebr al disc displacement , lumbosacral regionLow back pain 1 Ofelia Pardo . [address] [address], [place], [place], [address], [place]. tel:[phone] [facility], [address], [id number], [place] tel:[phone] [facility] Lumbar (chief complaint)g eneral orthopedic (chief complaint) Other intervertebr al disc displacement , lumbosacral region Jan- 1 Ofelia Pardo . [address], [id number], [place]. tel:[phone] Office/outpa tient visit,[facility], [address], [id number], [place] tel:[phone] [facility] lumbar (chief complaint)g eneral orthopedic (chief complaint) LumbagoOther intervertebr al disc displacement , lumbosacral region 1 Ofelia Pardo . [address] [address], [place], [place], [address], [place]. tel:[phone] [facility], [address], [id number], [place] tel:[phone] [facility] low back (chief complaint)g eneral orthopedic (chief complaint) Lumbago 1 Ofelia Pardo . [address], [id number], [place]. tel:[phone] Family History Family Member Type Diagnosis Age At Onset No Information Payers Payer name Insurance type Covered alliance party ID Authoriza tion(s) No Information Social History Type Description Quantity Date Captured Comments Alcohol Use Details Unknown Caffeine Use Details No Tobacco Use Status Current non-smoker Smoking Status Never smoker Non-Smoking Tobacco Use Details : No Details Available : No Details Available Sex Male Vital Signs Date / Time: Height Weight BMI Pulse Rate Blood Pressure Temperature Respiratory Rate Body Surface Area Head Circumference Head Circ. Percentile Wt./Alan. Percentile BMI percentile Pulse Ox Inhaled Ox 10:45 AM 67.00 in 92.986 kg (205.00 lbs) 32.1 1 kg/m sidneyer (2) Chief Complaint And Reason For Visit From encounter dated '05/28/2022 11:00'. Lumbar (chief complaint). Description: Charisse comes into the office for lumbar spine. lumbar spine (chief complaint). Description: Charisse Ambrosio is a pleasant 42-year-old male who follows up approximately 3 months status post L4-5 transforaminal lumbar interbody fusion performed in 02/2022 for a recurrent disc herniation at L4-5. He also has a new disc herniation at L5-S1. He has gone on to recover from that, and he is here today for follow-up. Reason For Referral Reason For Referral No Information Plan Of Treatment Date Type Action Status Referral Ordered: Injection Transforaminal, single, lumbar/sacral SNRB LT spine, lumbar ordered Referral Ordered: MRI lumbar spine W/Wo Contrast spine, lumbar Appointment date/timeframe: 07/16/2021 ordered Referral Ordered: X-ray exam Lumbar 2-3 views spine, lumbar ordered Referral Ordered: X-ray exam Lumbar 2-3 views ordered Future Order: Lab Order Creatini ne (Creatinine), Ordered on: Ordered History Of Present Illness Encounter Date Complaint History Of Prese nt Illness lumbar spine Charisse Ambrosio i s a pleasant 42-year-old male who follows up approximately 3 months status post L4-5 transforaminal lumbar interbody fusion performed in 02/2022 for a recurrent disc herniation at L4-5. He also has a new disc herniation at L5-S1. He has gone on to recover from that, and he is here today for follow-up. Sona Mcqueen comes in to the office for lumbar spine. Lumbar Charisse comes in to the office for a post op. lumbar spine Charisse Ambrosio i s a pleasant 41-year-old male who follows up approximately 6 months status post L4-5 transforaminal lumbar interbody fusion and L5-S1 microdiscectomy. He reports resolution of his lower extremity pain. He does have occasional low back pain when waking up in the morning, which lasts for approximately 1 to 2 minutes until he stretches out and warms up. He reports that he then feels good with no pain throughout the rest of the day. I reviewed with him that his current job indicates that he does not have any significant lifting requirements. 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 I asked him if he thought he could do the job requirements at his new facility, and he feels that he can. lumbar spine Charisse Ambrosio i s a pleasant 41-year-old male who follows up 2 weeks status post L4-5 decompression and fusion with transforaminal lumbar interbody fusion and a left-sided L5-S1 microdiscectomy. This is a workers' compensation case. Today, the patient reports that his left lower extremity pain has improved significantly; however, it has not completely resolved. He states that his pain is less severe and less frequent. He notes that his pain may be present for 15 to 20 minutes at a time, and it does respond to positional changes and Tylenol. Sona Mcqueen comes in to the office for a post op. lumbar spine Charisse Ambrosio i s a pleasant 41-year-old male workers' compensation patient who presents for a follow-up evaluation for a work-related injury. He has a history of a microdiscectomy in 2020 secondary to a work-related injury. He then had a subsequent repeat herniation and presented to my office with an MRI with contrast demonstrating a repeat herniation at L4-5 with severe lateral recess stenosis in the setting of his previous discectomy. Additionally, he has a left-sided L5-S1 disc herniation creating moderately severe to severe lateral recess stenosis. Initially, we recommended a series of lumbar epidural steroid injections. He was sent for an independent medical examination and then returned to me with authorization to proceed with these injections. The patient has received an L5 transforaminal epidural steroid injection, as well as an S1 transforaminal epidural steroid injection without any significant lasting relief. Lumbar Charisse comes in to the office for lumbar spine. lumbar spine Charisse Ambrosio i s a pleasant 41-year-old male who presents for a follow-up evaluation to proceed with a planned left S1 transforaminal epidural steroid injection. He continues to endorse left lower extremity pain. Lumbar Charisse comes in to the office for a transforaminal epidural injection. Lumbar Charisse comes in to the office for lumbar spine. lumbar spine Charisse Ambrosio i s a pleasant 41-year-old male who follows up after a left-sided L5 transforaminal epidural steroid injection. He reports no significant relief from that injection. He reports that the first 2 days following the injection, he may have had increased pain. The patient continues to endorse pain in the posterior thigh down into the posterior calf, more so than the anterolateral aspect of the lower extremity, traveling down into the area of the Achilles tendon. lumbar spine Charisse Ambrosio i s a pleasant 41-year-old male who presents for a follow-up evaluation to proceed with a planned left L5 transforaminal epidural steroid injection. He continues to endorse left lower extremity pain. Lumbar Charisse comes in to the office for a transforaminal epidural injection. lumbar spine Charisse Ambrosio i s a pleasant 41-year-old male workers' compensation patient who returns today with continued left lower extremity pain in an L5 versus S1 dermatomal distribution. Of note, he has a history of an L4-5 disc herniation treated with discectomy in 10/2020 after a work injury. He went on to recover from that injury, then had a subsequent re-herniation and had a subsequent return of pain. This MRI reveals a re-herniation at L4-5. The patient describes pain in an L5 dermatomal distribution, also with pain down traveling down into the calf and into the Achilles tendon, consistent with an S1 dermatomal distribution. Lumbar Charisse comes in to the office for MRI test results. lumbar spine Charisse Ambrosio i s a pleasant 41-year-old male who follows up for his left leg radiculopathy. He reports that he has attended 3 visits of formal physical therapy in the last 4 weeks. He has had to reschedule and cancel visits due to his current work schedule. 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 At this point, he continues to endorse left leg pain traveling in an L5 distribution. He has taken oxycodone that he had left over, and he did have mild improvement in his symptoms with a Medrol Dosepak. The gabapentin did not help him, and he discontinued that medication.The patient has a history of microdiscectomy over 6 months ago. He was released to full duty in 02/2021. EH subsequently presented in 05/2021 with resurgence of pain. lumbar Charisse comes in to the office for lumbar spine. lumbar Charisse comes in to the office for lumbar spine. lumbar spine Charisse Ambrosio i s a pleasant 41-year-old male who follows up 6 months status post microdiscectomy for left leg radiculopathy. He was seen here in 02/2021 and released to full duty and was found maximum medical improvement. The patient indicates that he has started a new job; however, prior to beginning that new job approximately 1 month ago, he began having left leg pain. He presented to his primary care physician, who subsequently referred him here for follow-up. He is currently endorsing left lower extremity pain traveling from the buttock and into the posterolateral thigh and down below the knee into the foot. lumbar Charisse comes in to the office status post L4-5 Microdiskectomy. 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 At his last visit with me, he was released to full duty without restriction. However, he states that he has not been working as he was laid off secondary to the pandemic.The patient currently complains of occasional midline low back pain when he gets up in the mornings, which fades with activity. The patient has been able to do all of his activities without restrictions since his last visit. 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 He reports that his left leg pain has remained absent and resolved; however, he does affirm occasional low back pain. He states that his pain is typically worse in the morning and after prolonged periods of immobility. It does respond to Aleve. Lumbar Charisse comes in to the office today for follow up of his lumbar spine lumbar Charisse comes in to the office for lumbar. 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 He was treated conservatively with formal physical therapy and a lumbar epidural steroid injection initially, followed by his microdiscectomy. The patient reports that his left leg pain has completely resolved. He admits to residual low back pain and stiffness, primarily after getting out of bed and moving around his house in the mornings and after prolonged periods of sitting. He denies any radicular complaints at this time. low back Patient follows from low back surgery 10/29/20. general orthopedic Charisse carpenter is a pleasant 40-year-old male who presents 2 weeks status post L4-5 microdiscectomy. He reports that his preoperative left lower extremity pain has improved in severity and frequency; however, it is still present. He notes that his radicular symptoms manifest more as numbness and tingling in the left leg without acute radicular pain. Functional Status Date Functional Assessmen t No Information Instructions Date Instruction Additional Infor roxana Plan of Care:Charisse Ambrosio is a pleasant 42-year-old male who is over 3 months status post L4-5 transforaminal lumbar interbody fusion. He is doing quite well. From my standpoint, he is free to perform all activities with no restrictions. The patient will follow up with me on an as-needed basis.The medical record documentation of this Provider's service encounter was entered by Holly Mckinney, acting as Medical Data Entry Clerk for Edvin Gilbert MD. Related to Fusion of spine, lumbar region Plan of Care:Charisse Ambrosio is a pleasant 41-year-old male who is 6 months status post L4-5 transforaminal lumbar interbody fusion and L5-S1 microdiscectomy. He is doing well at this time. We are going to return him to work without restrictions. The patient will follow up in 4 weeks for a reevaluation.The medical record documentation of this Provider's service encounter was entered by Holly Mckinney, acting as Medical Data Entry Clerk for Edvin Gilbert MD. Related to Fusion of spine, lumbar region Plan of Care:Charisse Ambrosio is a pleasant 41-year-old male who has an L4-5 recurrent disc herniation and an L5-S1 disc herniation on the left with left lower extremity radiculopathy. He is here for a planned left L5 transforaminal epidural steroid injection. The patient will follow up in 2 weeks for reevaluation. Procedure Note: Left L5 Transforaminal Epidural Steroid Injection Under FluoroscopyPre-procedure diagnoses are left L4-5 recurrent disc herniation and left L5-S1 disc herniation with left lower extremity radiculopathy.Post-procedure diagnoses are left L4-5 recurrent disc herniation and left L5-S1 disc herniation with left lower extremity radiculopathy.Provider is Edvin Gilbert MD.Complications: None.EBL: None.Prior to the procedure, verbal consent was obtained and all allergies were confirmed. The patient was made aware of all risks and benefits from this procedure. The patient was then placed prone on a radiolucent table and the left L5 pedicle was identified via pulsed fluoroscopy. The skin was marked, and prepped in a sterile fashion with Betadine and a sterile sheet. Then approximately 5 cc 0.5% lidocaine was used to anesthetize the skin, subcutaneous tissues, and muscles for local anesthesia. After proper anesthesia was obtained, a spinal needle was slowly inserted and advanced under fluoroscopic guidance to the 6 o'clock position beneath the left L5 pedicle. A lateral view showed transforaminal placement of the needle. After aspiration revealed no blood or CSF return, approximately 0.3 cc of Omnipaque was injected, which showed a dye pattern consistent with epidural placement of the needle. Approximately 5 cc, including 2 cc of Kenalog 80 mg and 3 cc of normal saline, was injected in a slow incremental fashion into the foraminal space. The patient tolerated the procedure well without complications. At this point, the needle was removed, the skin was cleaned, and a sterile bandage was applied. The patient was observed and vital signs were monitored. The patient was discharged in a stable condition with instructions to follow up as discussed.The medical record documentation of this Provider's service encounter was entered by Tasia Hunter, acting as Medical Data Entry Clerk for Edvin Gilbert MD. Related to Other intervertebral disc displacement, lumbosacral region Plan of Care:Charisse Ambrosio is a pleasant 41-year-old male who is 2 weeks status post L4-5 decompression and fusion with transforaminal lumbar interbody fusion and L5-S1 left-sided microdiscectomy. The patient is doing well postoperatively with changes and improvement in his left lower extremity. The patient may return to work in a limited capacity with a 10 to 15-pound lifting restriction. He may perform sedentary or administrative duties. The patient tells me that his current employer will likely not take him back with restrictions as his injury occurred when he was an employee of another company; however, we will still provide restrictions nonetheless. The patient is not taking any pain medication, except for Tylenol. The patient indicates to me that a few days ago, he bumped his back on a table when getting up from the floor and had brownish drainage from his incision, likely a hematoma that has gone on to stop itself. I reinforced with him that it is normal to have a postoperative hematoma that will sometimes break through the incision. I reassured him that if it has not continued, it is likely okay. The patient will follow up in 4 weeks for a reevaluation.The medical record documentation of this Provider's service encounter was entered by Holly Mckinney, acting as Medical Data Entry Clerk for Edvin Gilbert MD. Related to Radiculopathy, site unspecified Plan of Care:Charisse Ambrosio is a pleasant 41-year-old male who had a work-related injury previously resulting in an L4-5 disc herniation. He subsequently had a re-herniation at that same level on the same side and has become symptomatic from that. He has been worked up conservatively with formal physical therapy, anti-inflammatory medications, oral steroids, work restrictions, and 2 epidural steroid injections, both providing no significant lasting relief.At this point, I would recommend that the patient be considered for surgical intervention. The surgery would be an L4-5 decompression with revision discectomy and instrumented posterior spinal fusion at L4-5 from the left with a transforaminal lumbar interbody fusion. At the same time, I would come down to L5-S1 and perform a microdiscectomy on the same side. It is unclear to me if he is symptomatic from the L4-5 disc herniation or the L5-S1 disc herniation. Unfortunately, the epidural injections did not provide us with significant evidence as to which one would be symptomatic. At this point, my suspicions are that they both are. Secondary to the nature of this decompression and discectomy being revised at L4-5, that will require fusion. With respect to L5-S1, this is a primary disc herniation. The remainder of the level appears to be healthy. The foraminal spaces are maintained. A discectomy alone at L5-S1 on the left would be advisable.I would expect him to be off work for roughly 2 to 3 weeks while his incision heals. We would then return him to duties with restrictions, and we will carry limitations on duties for about the first 8 to 12 weeks postoperatively with the goal of having him back to full duty sometime between 10 to 16 weeks postoperative.It would be my opinion with a reasonable degree of medical certainty that the diagnoses described today, treatment rendered up to this point, as well as the suggested surgical intervention is causally related to the work injury and the previously operative level at L4-5.The medical record documentation of this Provider's service encounter was entered by Tasia Hunter, acting as Medical Data Entry Clerk for Edvin Gilbert MD. Related to Radiculopathy, site unspecified Plan of Care:Charisse Ambrosio is a pleasant 41-year-old male who has L5-S1 radiculopathy. He presents here to proceed with a planned left S1 transforaminal epidural steroid injection as he had no relief from his L5 injection. The patient will follow up in 2 weeks for a reevaluation.Procedure Note: Left S1 Transforaminal Epidural Steroid Injection Under FluoroscopyPre-procedure diagnosis is L5-S1 radiculopathy.Post-procedure diagnosis is L5-S1 radiculopathy.Provider is Edvin Gilbert MD.Complications: None.EBL: None.Prior to the procedure, verbal consent was obtained and all allergies were confirmed. The patient was made aware of all risks and benefits from this procedure. The patient was then placed prone on a radiolucent table and the left S1 pedicle was identified via pulsed fluoroscopy. The skin was marked, and prepped in a sterile fashion with Betadine and a sterile sheet. Then approximately 5 cc 0.5% lidocaine was used to anesthetize the skin, subcutaneous tissues, and muscles for local anesthesia. After proper anesthesia was obtained, a spinal needle was slowly inserted and advanced under fluoroscopic guidance to the 6 o'clock position beneath the left S1 pedicle. A lateral view showed transforaminal placement of the needle. After aspiration revealed no blood or CSF return, approximately 0.3 cc of Omnipaque was injected, which showed a dye pattern consistent with epidural placement of the needle. Approximately 5 cc, including 2 cc of Kenalog 80 mg and 3 cc of normal saline, was injected in a slow incremental fashion into the foraminal space. The patient tolerated the procedure well without complications. At this point, the needle was removed, the skin was cleaned, and a sterile bandage was applied. The patient was observed and vital signs were monitored. The patient was discharged in a stable condition with instructions to follow up as discussed.The medical record documentation of this Provider's service encounter was entered by Tasia Hunter, acting as Medical Data Entry Clerk for Edvin Gilbert MD. Related to Radiculopathy, site unspecified Plan of Care:Charisse Ambrosio is a pleasant 41-year-old male who has had no response to a left L5 transforaminal epidural steroid injection. My concern, even prior to the injection, is if his pain is more to be secondary to his L4-5 recurrent disc herniation or potentially this L5-S1 disc herniation identified on his MRI scan. Secondary to the lack of response to this L5 injection, I am going to request authorization for an S1 transforaminal epidural steroid injection on the left. I will start him on gabapentin 300 mg 3 times a day. We will order him a steroid dose pack. We will seek authorization for a left S1 transforaminal epidural steroid injection.The medical record documentation of this Provider's service encounter was entered by Holly Mckinney, acting as Medical Data Entry Clerk for Edvin Gilbert MD. Related to Low back pain, unspecified Plan of Care:Charisse Ambrosio is a pleasant 41-year-old male who underwent an L4-5 discectomy within the last 12 months secondary to a work injury. The patient subsequently suffered a re-herniation, which causes radicular symptoms. It prompted an MRI to confirm that diagnosis, and we also identified a left-sided L5-S1 disc herniation. The working diagnosis today is L4-5 recurrent disc herniation that is symptomatic, as well as an L5-S1 disc herniation that also appears to be symptomatic. I offered Mr. Ambrosio a couple of options, including epidural steroid injections, continued physical therapy, or potentially a surgical option. It is my opinion with a reasonable degree of medical certainty that the diagnosis of recurrent disc herniation at L4-5 and the radiculopathy secondary to that stem in flow from his previous work injury, as well as the surgical treatment that was rendered for that diagnosis. I would recommend revision decompression with discectomy and a transforaminal interbody fusion at L4-5. Additionally, as he does have symptoms that may also follow an S1 dermatomal distribution, I would request authorization for an L5-S1 discectomy at the same time, as his L4-5 surgical intervention in the form of fusion.I outlined with him the typical protocols, including 2 weeks off of work, restricted duty for about the next 6 to 8 weeks. I plan to decrease his restrictions about the week 8 to 10 alicia with a goal of having him back to full duty sometime between 12 and 16 weeks. I outlined all the risks, benefits, and alternatives of this procedure at length today.The medical record documentation of this Provider's service encounter was entered by Isamar Gaytan, acting as Medical Data Entry Clerk for Edvin Gilbert MD. Related to Low back pain Plan of Care:Charisse Ambrosio is a pleasant 41-year-old male who has left leg radiculopathy. At this point, I am not happy with his infrequent formal physical therapy visits as he has only attended 3 visits in 4 weeks, and there were a lot of excuses as to why he could not continue with these visits. He has taken oxycodone that he had left over, and I counseled him that this is not the appropriate medication to be taking for these complaints. He had mild improvement in his symptoms with a Medrol Dosepak. The gabapentin did not help him, and he discontinued that medication.Based on the continued symptoms beyond a 4-week duration and his limited responses to formal physical therapy, I do not see a significant benefit in delaying further management strategy for him to attend more formal physical therapy. I believe he has proven to be unreliable in that regard. Moving forward, I am going to request an MRI of the lumbar spine with contrast. I would request that this study be completed at [facility], at the [facility], or at another quality facility in [place]. I would request that this not be performed at a [facility] facility, the [facility] facility, or the [facility] facility in [place]. This should be an MRI with contrast. He can follow up with me after the completion of the study. I will make no changes in his work restrictions.The medical record documentation of this Provider's service encounter was entered by Holly Mckinney, acting as Medical Data Entry Clerk for Edvin Gilbert MD Related to Radiculopathy, site unspecified Plan of Care:Charisse Ambrosio is a pleasant 41-year-old male who may have a return of left leg radiculopathy. I recommend a Medrol Dosepak, as well as formal physical therapy twice per week for a diagnosis of left leg radiculopathy. He would like to continue full duty if possible as he started a new job. We will not put him on light duty at this time. The patient will follow up in 4 weeks for a reevaluation. If his symptoms are not improving or responding to formal physical therapy, Aleve, and a steroid pack, we may consider a repeat MRI of the lumbar spine with contrast.The medical record documentation of this Provider's service encounter was entered by Holly Mckinney, acting as Medical Data Entry Clerk for Edvin Gilbert MD Related to Radiculopathy, site unspecified Plan of Care: Carter Ambrosio is a pleasant 40-year-old male who is 4 months status post lumbar microdiscectomy. He was released to full duty without any restrictions without restrictions. Over the last 4 weeks or so, he has not had any increase in pain with his full activities. At this point, I find him to be a maximum medical improvement. The patient may return to all activities without restriction if he has not already done so. He may work without any restrictions. He will follow up with me as needed.The medical record documentation of this Provider's service encounter was entered by Holly Mckinney, acting as Medical Data Entry Clerk for Edvin Gilbert MD. Related to Low back pain Plan of Care: Carter Ambrosio is a pleasant 40-year-old male who is 3 months status post an uncomplicated L4-5 microdiscectomy. At this point, he has no radicular complaints 3 months out from surgery, and I recommend he return to work at full duty without restrictions. He will follow up in approximately 4 weeks for a reevaluation with an update on his progress at work. I would expect him to be at maximum medical improvement within the next 4 weeks. Again, he has no restrictions at this time.The medical record documentation of this Provider's service encounter was entered by Holly Mckinney, acting as Medical Data Entry Clerk for Edvin Gilbert MD. Related to Other intervertebral disc displacement, lumbosacral region Charisse Ambrosio is a pleasant 40-year-old male who is approximately 2 weeks status post L4-5 microdiscectomy. At this time, the patient may increase his activity levels. 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 He may ambulate without restriction. The patient should be allowed frequent positional changes. He may not lift over 10 pounds, and he should have decreased flexion at the waist requirements secondary to his surgery. The patient will follow up in 4 weeks for a reevaluation, at which time we will decrease his restrictions and increase his activity level.The medical record documentation of this Provider's service encounter was entered by Holly Mckinney, acting as Medical Data Entry Clerk for Edvin Gilbert MD. Related to Lumbago Plan of Care: Carter Ambrosio is a pleasant 40-year-old male who fis 6 weeks status post microdiscectomy. He has had improvement is not complete resolution in his radiculopathy. He does have residual back pain, primarily with stiffness and soreness in the mornings and after prolonged periods of immobility. I recommend that the patient start Aleve, 2 tablets by mouth 2 times daily. The patient is released to work with restrictions, including a 25 to 30-pound lifting restriction. He may not climb ladders or work at heights without a railing. He may drive personal and commercial vehicles, and he may operate machinery. He has no restrictions with sitting or standing activities. The patient will follow up with me in 6 weeks, at which time he will likely be returned to full duty without restrictions. The medical record documentation of this Provider's service encounter was entered by Holly Mckinney, acting as Medical Data Entry Clerk for Edvin Gilbert MD. Related to Other intervertebral disc displacement, lumbosacral region Assessments Type Assessment Date assessment Fusion of spine, lumbar region J Patient Care Teams Name Effective Dates (start - stop) Status Members No Information
--- OUTSIDE RECORDS SUMMARY | 2025-01-10 13:27 | XMS_ITS | Data Portability ---
[facility] Organization [facility] [address] [place] [address] Care Team Providers Care Em Physician Name Role Phone JOCY LINARES Primary Care Provider [phone] Assessment Encounter Date Assessment Date Assessment LastModified by Organization Details LastModified Time 10/19/2024 10/19/2024 EKG sinus rhythm with no clear-cut acute ischemic changes. He does use some ibuprofen fairly regularly for back and aches and pains I have told him to stop that he may use Tylenol 1000 mg twice a day if needed we will check blood work get the emergency room record obtain nerve conduction test of arms given his pain and history of carpal tunnel and some questionable hand symptoms he will see me back in 3 months he may go back to work [email or web address] Not available 10/20/2024 12:37:46 Plan of Treatment Reminders Order Date Submit Date Provider Last Modified By Organization Details Last Modified Time Details Appointments ANY 15 2024 09:30A Vaishnavi Linares MD Not available Not available Not available Lab PSA, total, serum or plasma 2023 024 [facility], [address] [facility], [address], [place], [address], 10/25/2024 10:14:24 lipid panel, serum 2023 024 [facility], [address] [facility], [address], [place], [address], 10/25/2024 10:14:15 CBC w/ auto diff 2023 024 [facility], [address] [facility], [address], [place], [address], 10/25/2024 10:14:22 CMP, serum or plasma 2023 024 [facility], [address] [facility], [address], [place], [address], 10/25/2024 10:14:17 urinaly sis, dipstic k, reflex micro 2023 024 [facility], [address] [facility], [address], [place], [address], 10/25/2024 10:14:[address] Referral physica l therapi st referra l 2022 023 [facility], [address] [place], [address], 10/27/2023 16:09:31 gastroe nterolo gist referra l - Please call patient for appoint ment, thanks! [address] [facility] Devon Tejada MD, [address] [facility], [address], [place], [address], 10/27/2023 16:09:31 Procedures None recorde d. Surgeries None recorde d. Imaging electro cardiog marifer 2023 024 [email or web address] In-Office Order, Internal Use Only DO Not Attach Compendium DO Not Attach Compendium, Do Not Delete/merge, [id number] 10/19/2024 13:34:55 Medication Orders losarta n 100 mg-hydr ochloro thiazid e 12.5 mg tablet 2022 023 [id number], [address] [facility], [place], [place], [id number], 03/08/2023 13:06:35 losarta n 100 mg-hydr ochloro thiazid e 12.5 mg tablet 2022 023 [facility][id number], [address], [place], [place], [id number], 12/10/2022 12:01:27 losarta n 100 mg-hydr ochloro thiazid e 12.5 mg tablet 2021 022 [facility] #90653, [address], [place], [place], [id number], 04/23/2022 18:03:29 metopro lol succina te ER 50 mg tablet, extende d release 24 hr 2021 022 [facility] #63979, [address] , [place], [place], [id number], 12/10/2022 11:49:23 losarta n 100 mg-hydr ochloro thiazid e 12.5 mg tablet 2021 022 [facility] #43791, [address] , [place], [place], [id number], 02/08/2022 12:13:30 metopro lol succina te ER 50 mg tablet, extende d release 24 hr 2021 022 [facility] #09156, [address], [place], [place], [id number], 12/10/2022 11:49:23 Patient TargetsNo targets recorded. Patient Instructions Encounter Date Encounter Id Patient Instructions Last Modified By Organization Details Last Modified Time 02/08/2022 [id number] herniated disc: care instructions [facility] Not available 02/08/2022 12:12:30 herniated disc: exercises [facility] Not available 02/08/2022 12:12:30 04/23/2022 [id number] learning about high blood pressure [facility] Not available 04/23/2022 18:03:24 12/10/2022 [id number] influenza (flu) vaccine: care instructions [facility] Not available 12/10/2022 12:01:18 A healthy lifestyle: care instructions [facility] Not available 12/10/2022 12:01:19 learning about high blood pressure [facility] Not available 12/10/2022 12:01:19 03/08/2023 [id number] A healthy lifestyle: care instructions [facility] Not available 03/08/2023 13:06:30 learning about high blood pressure [facility] Not available 03/08/2023 13:06:30 Reason for Referral Pearl Technician Referral for Screening for malignant neoplasm of colon Please call patient for appointment, thanks! Referring Physician: Cathy Dunbar, Internal Medicine, Encounter Date: 12/10/2022 Physical Therapist Referral for Chronic low back pain Referring Physician: Cathy Dunbar, Internal Medicine, Encounter Date: 03/08/2023 Results Created Date Observation Date Name Description Value Unit Range Abnormal Flag Note LastModifiedBy Organization Detail LastModifiedTime 10/24/20 24 10/25/2024 LIPID PANEL cholesterol, total 202 mg/dL 100-19 9 above high normal Not Available [facility] ([facility] [address] [place], [address], 10/25/2024 10:14:15 10/24/20 24 10/25/2024 LIPID PANEL triglyceride s 156 mg/dL 0-149 above high normal Not Available [facility] ([facility] [address] [place], [address], 10/25/2024 10:14:15 10/24/20 24 10/25/2024 LIPID PANEL HDL cholesterol 34 mg/dL >39 below low normal Not Available [facility] ([facility] [address] [place], [address], 10/25/2024 10:14:15 10/24/20 24 10/25/2024 LIPID PANEL VLDL cholesterol luke 28 mg/dL 5-40 Not Available [facility] ([facility] [address] [facility], [place], [address], 10/25/2024 10:14:15 10/24/20 24 10/25/2024 LIPID PANEL LDL chol calc ([facility]) 140 mg/dL 0-99 above high normal Not Available [facility] ([facility] [address] [facility], [place], [address], 10/25/2024 10:14:15 10/24/20 24 10/25/2024 COMP. METAB OLIC PANEL (14) glucose 98 mg/dL 70-99 Not Available [facility] ([facility] [address] [facility], [place], [address], 10/25/2024 10:14:17 10/24/20 24 10/25/2024 COMP. METAB OLIC PANEL (14) BUN 15 mg/dL 6-24 Not Available [facility] ([facility] [address] [facility], [place], [address], 10/25/2024 10:14:17 10/24/20 24 10/25/2024 COMP. METAB OLIC PANEL (14) creatinine 1.49 mg/dL 0.76-1 .27 above high normal Not Available [facility] ([facility] [address] [place], [address], 10/25/2024 10:14:17 10/24/20 24 10/25/2024 COMP. METAB OLIC PANEL (14) eGFR 58 mL/mi n/1.7 3 >59 below low normal Not Available [facility] ([facility] [address] [place], [address], 10/25/2024 10:14:17 10/24/20 24 10/25/2024 COMP. METAB OLIC PANEL (14) BUN/creatini ne ratio 10 9-20 Not Available [facility] ([facility] [address] [place], [address], 10/25/2024 10:14:17 10/24/20 24 10/25/2024 COMP. METAB OLIC PANEL (14) sodium 139 mmol/ L 134-14 4 Not Available [facility] ([facility] [address] [facility] [place], [address], 10/25/2024 10:14:17 10/24/20 24 10/25/2024 COMP. METAB OLIC PANEL (14) potassium 4.7 mmol/ L 3.5-5. 2 Not Available [facility] ([facility] [address] [facility] [place], [address], 10/25/2024 10:14:17 10/24/20 24 10/25/2024 COMP. METAB OLIC PANEL (14) chloride 98 mmol/ L 96-106 Not Available [facility] ([facility] [address] [facility] [place], [address], 10/25/2024 10:14:17 10/24/20 24 10/25/2024 COMP. METAB OLIC PANEL (14) carbon dioxide, total 23 mmol/ L 20-29 Not Available [facility] ([facility] [address] [facility] [place], [address], 10/25/2024 10:14:17 10/24/20 24 10/25/2024 COMP. METAB OLIC PANEL (14) calcium 9.8 mg/dL 8.7-10 .2 Not Available [facility] ([facility] [address] [facility] [place], [address], 10/25/2024 10:14:17 10/24/20 24 10/25/2024 COMP. METAB OLIC PANEL (14) protein, total 8.9 g/dL 6.0-8. 5 above high normal Not Available [facility] ([facility] [address] [facility] [place], [address], 10/25/2024 10:14:17 10/24/20 24 10/25/2024 COMP. METAB OLIC PANEL (14) albumin 4.5 g/dL 4.1-5. 1 Not Available [facility] ([facility] [address] [facility], [place], [address], 10/25/2024 10:14:17 10/24/20 24 10/25/2024 COMP. METAB OLIC PANEL (14) globulin, total 4.4 g/dL 1.5-4. 5 Not Available [facility] ([facility] [address] [facility], [place], [address], 10/25/2024 10:14:17 10/24/20 24 10/25/2024 COMP. METAB OLIC PANEL (14) bilirubin, total 1.1 mg/dL 0.0-1. 2 Not Available [facility] ([facility] [address] [facility], [place], [address], 10/25/2024 10:14:17 10/24/20 24 10/25/2024 COMP. METAB OLIC PANEL (14) alkaline phosphatase 73 IU/L 44-121 Not Available [facility] ([facility] [address] [facility], [place], [address], 10/25/2024 10:14:17 10/24/20 24 10/25/2024 COMP. METAB OLIC PANEL (14) AST (SGOT) 31 IU/L 0-40 Not Available [facility] ([facility] [address] [place], [address], 10/25/2024 10:14:17 10/24/20 24 10/25/2024 COMP. METAB OLIC PANEL (14) ALT (SGPT) 17 IU/L 0-44 Not Available [facility] ([facility] [address] [place], [address], 10/25/2024 10:14:17 10/24/20 24 10/25/2024 MICRO SCOPI C EXAMI NATIO N WBC None seen /hpf 0-5 Not Available [facility] ([facility] [address], [place], [address], 10/25/2024 10:14:19 10/24/20 24 10/25/2024 MICRO SCOPI C EXAMI NATIO N RBC 0-2 /hpf 0-2 Not Available [facility] ([facility] [address] [facility], [place], [address], 10/25/2024 10:14:19 10/24/20 24 10/25/2024 MICRO SCOPI C EXAMI NATIO N epithelial cells (non renal) None seen /hpf 0-10 Not Available [facility] ([facility] [address] [facility], [place], [address], 10/25/2024 10:14:19 10/24/20 24 10/25/2024 MICRO SCOPI C EXAMI NATIO N casts None seen /lpf nonese en Not Available [facility] ([facility] [address] [facility], [place], [address], 10/25/2024 10:14:19 10/24/20 24 10/25/2024 MICRO SCOPI C EXAMI NATIO N bacteria None seen nonese en/few Not Available [facility] ([facility] [address] [facility], [place], [address], 10/25/2024 10:14:19 10/24/20 24 10/25/2024 URINA LYSIS , ROUTI NE W/RFX specific gravity >=1.03 0 1.005- 1.030 abnormal Not Available [facility] ([facility] [address] [facility], [place], [address], 10/25/2024 10:14:20 10/24/20 24 10/25/2024 URINA LYSIS , ROUTI NE W/RFX pH 5.5 5.0-7. 5 Not Available [facility] ([facility] [address] [facility], [place], [address], 10/25/2024 10:14:20 10/24/20 24 10/25/2024 URINA LYSIS , ROUTI NE W/RFX urine-color YELLOW yellow Not Available [facility] [address] [facility], [place], [address], 10/25/2024 10:14:20 10/24/20 24 10/25/2024 URINA LYSIS , ROUTI NE W/RFX appearance CLEAR clear Not Available [facility] ([facility] [address] [place], [address], 10/25/2024 10:14:20 10/24/20 24 10/25/2024 URINA LYSIS , ROUTI NE W/RFX WBC esterase NEGATI VE negati ve Not Available [facility] ([facility] [address] [place], [address], 10/25/2024 10:14:20 10/24/20 24 10/25/2024 URINA LYSIS , ROUTI NE W/RFX protein 1+ negati ve/tra ce abnormal Not Available [facility] ([facility] [address] [place], [address], 10/25/2024 10:14:20 10/24/20 24 10/25/2024 URINA LYSIS , ROUTI NE W/RFX glucose NEGATI VE negati ve Not Available [facility] ([facility] [address] [place], [address], 10/25/2024 10:14:20 10/24/20 24 10/25/2024 URINA LYSIS , ROUTI NE W/RFX ketones TRACE negati ve abnormal Not Available [facility] ([facility] [address] [place], [address], 10/25/2024 10:14:20 10/24/20 24 10/25/2024 URINA LYSIS , ROUTI NE W/RFX occult blood NEGATI VE negati ve Not Available [facility] ([facility] [address] [facility], [place], [address], 10/25/2024 10:14:20 10/24/20 24 10/25/2024 URINA LYSIS , ROUTI NE W/RFX bilirubin NEGATI VE negati ve Not Available [facility] ([facility] [address] [facility], [place], [address], 10/25/2024 10:14:20 10/24/20 24 10/25/2024 URINA LYSIS , ROUTI NE W/RFX urobilinogen ,semi-qn 0.2 mg/dL 0.2-1. 0 Not Available [facility] ([facility] [address] [facility], [place], [address], 10/25/2024 10:14:20 10/24/20 24 10/25/2024 URINA LYSIS , ROUTI NE W/RFX nitrite, urine NEGATI VE negati ve Not Available [facility] ([facility] [address] [facility], [place], [address], 10/25/2024 10:14:20 10/24/20 24 10/25/2024 URINA LYSIS , ROUTI NE W/RFX microscopic examination SEE BELOW: Micro scopi c was indic ated and was perfo rmed. Not Available [facility] ([facility] [address] [facility], [place], [address], 10/25/2024 10:14:20 10/24/20 24 10/24/2024 CBC WITH DIFFE RENTI AL/PL ATELE T WBC 6.2 x10e3 /uL 3.4-10 .8 Not Available [facility] ([facility] [address] [place], [address], 10/25/2024 10:14:22 10/24/20 24 10/24/2024 CBC WITH DIFFE RENTI AL/PL ATELE T RBC 4.70 x10e6 /uL 4.14-5 .80 Not Available [facility] ([facility] [address] [facility], [place], [address], 10/25/2024 10:14:22 10/24/20 24 10/24/2024 CBC WITH DIFFE RENTI AL/PL ATELE T hemoglobin 14.3 g/dL 13.0-1 7.7 Not Available [facility] ([facility] [address] [facility], [place], [address], 10/25/2024 10:14:22 10/24/20 24 10/24/2024 CBC WITH DIFFE RENTI AL/PL ATELE T hematocrit 43.1 % 37.5-5 1.0 Not Available [facility] ([facility] [address] [facility], [place], [address], 10/25/2024 10:14:22 10/24/20 24 10/24/2024 CBC WITH DIFFE RENTI AL/PL ATELE T MCV 92 fL 79-97 Not Available [facility] ([facility] [address] [facility], [place], [address], 10/25/2024 10:14:22 10/24/20 24 10/24/2024 CBC WITH DIFFE RENTI AL/PL ATELE T MCH 30.4 pg 26.6-3 3.0 Not Available [facility] ([facility] [address] [facility], [place], [address], 10/25/2024 10:14:22 10/24/20 24 10/24/2024 CBC WITH DIFFE RENTI AL/PL ATELE T MCHC 33.2 g/dL 31.5-3 5.7 Not Available [facility] ([facility] [address] [place], [address], 10/25/2024 10:14:22 10/24/20 24 10/24/2024 CBC WITH DIFFE RENTI AL/PL ATELE T RDW 14.1 % 11.6-1 5.4 Not Available [facility] ([facility] [address] [facility], [place], [address], 10/25/2024 10:14:22 10/24/20 24 10/24/2024 CBC WITH DIFFE RENTI AL/PL ATELE T platelets 373 x10e3 /uL 150-45 0 Not Available [facility] ([facility] [address] [facility], [place], [address], 10/25/2024 10:14:22 10/24/20 24 10/24/2024 CBC WITH DIFFE RENTI AL/PL ATELE T neutrophils 43 % notest ab. Not Available [facility] ([facility] [address] [facility], [place], [address], 10/25/2024 10:14:22 10/24/20 24 10/24/2024 CBC WITH DIFFE RENTI AL/PL ATELE T lymphs 44 % notest ab. Not Available [facility] ([facility] [address] [facility], [place], [address], 10/25/2024 10:14:22 10/24/20 24 10/24/2024 CBC WITH DIFFE RENTI AL/PL ATELE T monocytes 10 % notest ab. Not Available [facility] ([facility] [address] [facility], [place], [address], 10/25/2024 10:14:22 10/24/20 24 10/24/2024 CBC WITH DIFFE RENTI AL/PL ATELE T eos 2 % notest ab. Not Available [facility] ([facility] [address] [facility], [place], [address], 10/25/2024 10:14:22 10/24/20 24 10/24/2024 CBC WITH DIFFE RENTI AL/PL ATELE T basos 1 % notest ab. Not Available [facility] ([facility] [address] [facility], [place], [address], 10/25/2024 10:14:22 10/24/20 24 10/24/2024 CBC WITH DIFFE RENTI AL/PL ATELE T neutrophils (absolute) 2.7 x10e3 /uL 1.4-7. 0 Not Available [facility] ([facility] [address] [facility], [place], [address], 10/25/2024 10:14:22 10/24/20 24 10/24/2024 CBC WITH DIFFE RENTI AL/PL ATELE T lymphs (absolute) 2.7 x10e3 /uL 0.7-3. 1 Not Available [facility] ([facility] [address] [facility], [place], [address], 10/25/2024 10:14:22 10/24/20 24 10/24/2024 CBC WITH DIFFE RENTI AL/PL ATELE T monocytes(ab solute) 0.6 x10e3 /uL 0.1-0. 9 Not Available [facility] ([facility] [address] [place], [address], 10/25/2024 10:14:22 10/24/20 24 10/24/2024 CBC WITH DIFFE RENTI AL/PL ATELE T eos (absolute) 0.1 x10e3 /uL 0.0-0. 4 Not Available [facility] ([facility] [address] [place], [address], 10/25/2024 10:14:22 10/24/20 24 10/24/2024 CBC WITH DIFFE RENTI AL/PL ATELE T baso (absolute) 0.0 x10e3 /uL 0.0-0. 2 Not Available [facility] ([facility] [address] [place], [address], 10/25/2024 10:14:22 10/24/20 24 10/24/2024 CBC WITH DIFFE RENTI AL/PL ATELE T immature granulocytes 0 % notest ab. Not Available [facility] ([facility] [address] [facility], [place], [address], 10/25/2024 10:14:22 10/24/20 24 10/24/2024 CBC WITH DIFFE RENTI AL/PL ATELE T immature grans (abs) 0.0 x10e3 /uL 0.0-0. 1 Not Available [facility] ([facility] [address] [facility], [place], [address], 10/25/2024 10:14:22 10/24/20 24 10/25/2024 PROST ATE-S PECIF IC AG prostate specific Ag 1.5 NG/mL 0.0-4. 0 Nish ECLIA metho dolog y. Accor ding to the Ameri can [employer] g[employer] iatio n, Serum PSA shoul d decre ase and remai n at undet ectab le level s after radic al prost atect irish. The AUA defin es bioch emica l recur rence as an initi al PSA value 0.2 ng/mL or great er follo wed by a subse quent confi rmato ry PSA value 0.2 ng/mL or great er. Value s obtai katheryn with diffe rent assay metho ds or kits canno t be used inter fishman eably . Resul ts canno t be inter prete d as absol le evide nce of the prese nce or absen ce of marcela hernandez disea se. Not Available [facility] ([facility] [address] [facility], [place], [address], 10/25/2024 10:14:23 10/19/20 elect rocar diogr am No observ ation record ed. [facility] In-Office Order Internal Use Only DO Not Attach Compendium DO Not Attach Compendium, Do Not Delete/merge, [id number] 10/19/2024 13:14:37 10/19/20 24 10/19/2024 elect rocar diogr am No observ ation record ed. [facility] In-Office Order Internal Use Only DO Not Attach Compendium DO Not Attach Compendium, Do Not Delete/merge, [id number] 10/19/2024 13:20:52 Result Notes None recorded. Problems Name Problem SNOMED Code Status Onset Date Resolution Date Notes Provider Name and Address Organization Details Recorded Time Essential hypertension [id number] Active Cathy Dunbar MD Attn: Robi stratton,[address], [place], [address], [place] - [facility] 5 12:16:19 Problem Notes None recorded. Procedures Surgical History Date Name Laterality Status Provider Name and Address Organization Details Recorded Time 2 Back Surgery completed Aida Sheikh [place] - [facility] 10/19/2024 12:03:15 0 Back Surgery completed Aida Sheikh [place] [facility] 10/19/2024 12:03:12 Imaging Results Imaging Date Name Status LastModified by Organization Details LastModified Time 10/19/2024 electrocardiogram completed [facility] In-Offi ce Order Internal Use Only DO Not Attach Compendium DO Not Attach Compendium, Do Not Delete/merge, [id number] 10/19/2024 13:14:37 10/19/2024 electrocardiogram completed [facility]O In-Offi ce Order Internal Use Only DO Not Attach Compendium DO Not Attach Compendium, Do Not Delete/merge, [id number] 10/19/2024 13:20:52 Procedure Notes None recorded. Medical Equipment None Reported. Allergies No known drug allergies Medications Name Sig Start Date Stop Date Status Note LastModified by Organization Details LastModified Time cyclobenzap rine 10 mg tablet 04/23 completed Not Available Not Available Not Available ibuprofen 800 mg tablet TAKE 1 TABLET BY MOUTH THREE TIMES DAILY AFTER MEALS 12/10 completed Not Available Not Available Not Available tizanidine 4 mg tablet TAKE 1 TABLET BY MOUTH EVERY 6 HOURS DIRECTED 08/10 completed Not Available Not Available Not Available metoprolol succinate ER 50 mg tablet,exte nded release 24 hr TAKE 1 TABLET BY MOUTH DAILY DIRECTED 12/10 completed Not Available Not Available Not Available famotidine 40 mg tablet TAKE 1 TABLET BY MOUTH TWICE DAILY DIRECTED 04/23 completed Not Available Not Available Not Available Viagra 50 mg tablet Take 1 tablet every day by oral route as needed for 30 days. 05/07 completed Not Available Not Available Not Available baclofen 20 mg tablet Take 1 tablet 4 times a day by oral route as directed for 30 days. 09/11 completed Not Available Not Available Not Available ketorolac 10 mg tablet Take 1 tablet 4 times a day by oral route as needed for 5 days. 05/07 completed Not Available Not Available Not Available alprazolam 0.5 mg tablet 09/11 completed Not Available Not Available Not Available lisinopril 10 mg tablet Take 1 tablet every day by oral route for 30 days. 08/29 completed Not Available Not Available Not Available gabapentin 300 mg capsule TAKE 1 CAPSULE BY MOUTH THREE TIMES DAILY 04/23 completed Not Available Not Available Not Available Viagra 100 mg tablet Take 1 tablet every day by oral route as needed for 30 days. 05/07 completed Not Available Not Available Not Available ibuprofen 600 mg tablet Take 1 tablet 3 times a day by oral route with meals for 30 days. 06/13 completed Not Available Not Available Not Available oxycodone-a cetaminophe n 7.5 mg-325 mg tablet 12/10 completed Not Available Not Available Not Available methylpredn isolone 4 mg tablets in a dose pack FOLLOW PACKAGE DIRECTION S 02/08 completed Not Available Not Available Not Available losartan 100 mg tablet Take 1 tablet every day by oral route as directed for 30 days. 08/10 completed Not Available Not Available Not Available amoxicillin 875 mg-potassiu m clavulanate 125 mg tablet TAKE 1 TABLET BY MOUTH EVERY 12 HOURS 10/19 completed Not Available Not Available Not Available losartan 100 mg-hydrochl orothiazide 12.5 mg tablet TAKE 1 TABLET BY MOUTH DAILY DIRECTED active Not Available Not Available No t Available diclofenac 1 % topical gel APPLY 2 GRAM TO THE AFFECTED AREA(S) BY TOPICAL ROUTE 4 TIMES PER DAY 12/18 completed Not Available Not Available Not Available Vitals Date Recorded Body height Body mass index (BMI) Body weight Body temperature Oxygen saturation Oxygen saturation in Arterial blood by Pulse oximetry Heart rate Systolic blood pressure Diastolic blood pressure Provider Name and Address Organization Details Last Updated DateTime 2 172.09 cm 32.8 kg/m2 68988.7 7 g 98.2 [degF] 99 % 99 % 64 /min 132 mm[Hg] 82 mm[Hg] Danisha Jackson MA [facility] 2 11:37:15 Date Recorded Body height Body mass index (BMI) Body weight Body temperature Oxygen saturation Oxygen saturation in Arterial blood by Pulse oximetry Heart rate Systolic blood pressure Diastolic blood pressure Provider Name and Address Organization Details Last Updated DateTime 2 172.09 cm 31.5 kg/m2 80371.8 7 g 98 [degF] 98 % 98 % 61 /min 132 mm[Hg] 84 mm[Hg] Emigdio Talavera MA [facility] 2 12:44:01 Date Recorded Body height Body mass index (BMI) Body weight Oxygen saturation Oxygen saturation in Arterial blood by Pulse oximetry Heart rate Systolic blood pressure Diastolic blood pressure Provider Name and Address Organization Details Last Updated DateTime 3 172.09 cm 31 kg/m2 45510.0 9 g 98 % 98 % 73 /min 134 mm[Hg] 82 mm[Hg] Naya Ochoa MA [facility] 3 11:52:19 Date Recorded Body height Body mass index (BMI) Body weight Oxygen saturation Oxygen saturation in Arterial blood by Pulse oximetry Heart rate Systolic blood pressure Diastolic blood pressure Provider Name and Address Organization Details Last Updated DateTime 3 172.09 cm 31.4 kg/m2 77184.8 7 g 97 % 97 % 71 /min 136 mm[Hg] 86 mm[Hg] Naya Ochoa MA [facility] 3 12:11:58 Date Recorded Body height Body mass index (BMI) Body weight Oxygen saturation Oxygen saturation in Arterial blood by Pulse oximetry Heart rate Body temperature Systolic blood pressure Diastolic blood pressure Provider Name and Address Organization Details Last Updated DateTime 4 172.09 cm 31 kg/m2 40200.1 g 95 % 95 % 69 /min 98.7 [degF] 160 mm[Hg] 104 mm[Hg] Naya Ochoa MA [facility] 4 15:51:04 Date Recorded Body height Body mass index (BMI) Body weight Heart rate Oxygen saturation Oxygen saturation in Arterial blood by Pulse oximetry Systolic blood pressure Diastolic blood pressure Provider Name and Address Organization Details Last Updated DateTime 4 172.09 cm 32.4 kg/m2 35057.8 6 g 77 /min 97 % 97 % 132 mm[Hg] 68 mm[Hg] Aida Sheikh MA [facility] 4 12:05:33 Social History Question Answer Notes LastModified by Organizat ion Details LastModified Time Tobacco Smoking Status Never Smoker Emigdio Talavera [place] null, [place] - [facility] 08/29/2018 10:59:51 Do You Have An Advance Directive? No Information not available 02/08/2022 What Is Your Level Of Alcohol Consumption? Occasional Information not available 10/19/2024 Are You Blind Or Do You Have Difficulty Seeing? No Information not available 10/19/2024 What Is Your Level Of Caffeine Consumption? None Information not available 02/08/2022 In The 14 Days Before Symptom Onset, Have You Had Close Contact With A Laboratory-confi rmed COVID-19 While That Case Was Ill? No Information not available 10/19/2024 In The 14 Days Before Symptom Onset, Have You Had Close Contact With A Person Who Is Under Investigation For COVID-19 While That Person Was Ill? No Information not available 10/19/2024 Have You Been To An Area Known To Be High Risk For COVID-19? No Information not available 10/19/2024 Are You Currently Employed? Yes Information not available 10/19/2024 Are You Deaf Or Do You Have Serious Difficulty Hearing? No Information not available 10/19/2024 What Type Of Diet Are You Following? 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 No Information not available 10/19/2024 What Was The Date Of Your Most Recent Tobacco Screening? 10/19/2024 Information not available 10/19/2024 What Is Your Relationship Status? Information not available 02/08/2022 Do You Use Your Seat Belt Or Car Seat Routinely? Yes Information not available 02/08/2022 Do You Have Smoke And Carbon Monoxide Detectors In Your Home? Yes Information not available 02/08/2022 Do You Use Any Illicit Or Recreational Drugs? Yes Sometimes Marijuana Information not available 02/08/2022 Do You Use Sunscreen Routinely? No Information not available 02/08/2022 Has Tobacco Cessation Counseling Been Provided? No Information not available 02/08/2022 Sex: Male Functional Status Question Answer Note LastModified by Organization D etails LastModified Time Are you able to care for yourself? Yes Information n ot available 10/19/2024 What is your exercise level? None Information not available 10/19/2024 Mental Status None recorded. Family History Relationship Description Onset Age of this Age Resolved Age Notes LastModified by Organization Details LastModified Time Sister Asthma Not available 02/27/2015 11:30:41 Sister Hypertensive disorder Not available 02/27 11:30:41 Sister Migraine Not availab le 02/27/2015 11:30:41 Mother Migraine Not availab le 02/27/2015 11:30:41 Brother Hypertensive disorder Not available 02/27 11:30:41 Brother Migraine Not availa ble 02/27/2015 11:30:41 Medical History Condition Response Coronary Artery Disease N Other N Atrial Fibrillation N High Blood Pressure Y Depression N COPD N Blood Clots N Anxiety Disorder N Muscle, Joint, or Bone Problems N Acid Reflux (GERD) N Cancer N Stroke N High Cholesterol N Liver Disease N Headaches N Kidney or Bladder Problems N Thyroid Problems N GI Problems N Skin Problems N Anemia N Heart Attack (ND) N Diabetes N Seizures/Epilepsy N Asthma N Allergies N Hepatitis N Heart Failure N Osteoporosis N Immunizations Vaccine Type Date Status Note Provider Nam e and Address Organization Details Recorded Time Influenza, split virus, quadrivalent, preservative 1 completed CATARINO Cordon, [place] - [facility] 08/17/2021 16:58:15 Influenza, split virus, quadrivalent, preservative 3 completed Naya Ochoa [place], [place] - [facility] 12/10/2022 14:26:52 Past Encounters Encounter ID Performer Location Encounter Start Date Encounter Closed Date Diagnosis/Indication Diagnosis SNOMED-CT Code Diagnosis ICD10 Code Diagnosis Note [id number] CATARINO Cates (Adult Med) [address] [place] [address] [id number] 0 02/27/2015 10:51:31 02/27/2015 12:10:57 Essential hypertension 84574481 [id number] MD Oseas Cervanets (Adult Med) [address] [place] [address] [id number] 08/29/2018 10:30:21 08/29/2018 11:39:01 Pain of left elbow joint 3839525373 3092926 M25.522 Discussed with patient. Bilateral hearing loss 45766325 H91.93 Essential hypertension 35201504 I10 Low salt diet, avoid NSAID, such as advil, ibuprofen or aspirin. Will put in medication . [id number] MD Oseas Cervantes (Adult Med) [address] [place] [address] [id number] 0 12/18/2019 12:23:07 12/18/2019 13:15:54 Essential hypertension 38272849 I10 Low salt diet, avoid NSAID, such as advil, ibuprofen or aspirin. Will put in medication . Hearing disorder 0153018 05 H91.93 Wax build up. Discussed with patient, he can buy some device at [facility] self-clean ing . [id number] MD Oseas Cervantes (Adult Med) [address] [place] [address] [id number] 0 06/03/2020 10:17:11 06/04/2020 15:14:02 Lumbar radiculopathy 407596891 M54.16 Discussed with patient, he agreed to try medication s as prescribed . [id number] MD Oseas Cervantes (Adult Med) [address] [place] [address] [id number] 06/13/2020 11:43:27 06/16/2020 21:35:12 Lumbar spondylosis 798147715 M47.896 Medication s as ordered below. Impotence 157429644 N52. 9 Discussed with patient, he wants to try viagra. Lumbar radiculopathy 128 397030 M54.16 Discussed with patient, he agreed to try medication s as prescribed . [id number] Cathy Dunbar MD [facility] (Adult Med) [address] [place] [address] [id number] 0 09/11/2020 10:51:04 09/12/2020 08:34:35 Right side sciatica 6583848982 84530 M54.31 Will try gabapentin and kketorolac for the relief of pain and discomfort , he agreed to try again. Stiff lower back as usual. Essential hypertension 54275740 I10 Low salt diet, avoid NSAID, such as advil, ibuprofen or aspirin. Will put in medication . He ran out medication for hypertensi on, will refill. Complainin g of erectile dysfunction 500143663 N52.9 Will increase dose of viagra., he agreed. [id number] Cathy Dunbar MD [facility] (Adult Med) [address] [place] [address] [id number] 05/07/2021 09:48:09 05/11/2021 11:58:46 Chronic low back pain 528796647 M54.5 Arthritis and mild spinal stenosis. left sciatica. S/T post lower back operation. Avoid bend over or pick/carry more than he can handle. He agreed to call his tooth cutter clutch again to set up appointmen t with his spinal surgeon, he called 3 days ago. He agreed to try can and brace, he has walker at home. Positive SLRT on the left side at 45 degrees in supine position. Essential hypertension 40217875 I10 Low salt diet, avoid NSAID, such as advil, ibuprofen or aspirin. Also avoid OTC decongesta nt if possible Will put in medication . He ran out medication for hypertensi on, or may be he has lower back pain will refill. Will order losartan with HCTZ, hopefully to bring down the Blood pressure to safer range, he agreed to try. [id number] Cathy Dunbar MD [facility] (Adult Med) [address] [place] [address] [id number] 08/10/2021 12:52:49 08/12/2021 10:36:05 Hypertensive disorder 52221568 I10 Discussed with patient, he agreed for the add on med to controll the BP to the safer level. Administra tion of influenza vaccine 37208938 Z23 Patient tolerated shot well. Chronic low back pain 27 3711543 M54.50 Under the care of his neurosurge on. [id number] MD Oseas Cervantes (Adult Med) [address] [place] [address] [id number] 0 11/09/2021 11:25:29 11/10/2021 10:17:42 Chronic low back pain 701247375 M54.50 Under the care of his neurosurge on.. Called the pharmacy to refill ibuprofen and gabapentin . today 11-09-2021 . Essential hypertension 11653508 I10 Low salt diet, avoid NSAID, such as advil, ibuprofen or aspirin. Also avoid OTC decongesta nt if possible Will put in medication . He ran out medication for hypertensi on, or may be he has lower back pain will refill. Will order losartan with HCTZ, hopefully to bring down the Blood pressure to safer range, he agreed to try. Blood pressure reading today is 142/86 mm HG. 11-09-2021 . [id number] MD Oseas Cervantes (Adult Med) [address] [place] [address] [id number] 02/08/2022 11:26:35 02/09/2022 15:25:28 Prolapsed lumbar intervertebral disc 513293546 M51.26 Pain radiating to left leg all the time. Will have second operation next week. No chest pain, no difficulty of breathing, no edema of leg/feet. On no blood thinner, NKDA. , advised him to stop ibuprofen at least 5-7 days before the back operation. Medically no objection to the operation. this office needs form to be signed for surgical clearance, he will tells the surgeon's office tomorrow when he goes to office. Name and luevano number provided to patient today. Hypertensive disorder 38 813734 I10 Discussed with patient, he agreed for the add on med to controll the BP to the safer level. Blood pressure reading is 132/82 mm HG today 02-08-2022 . [id number] MD Oseas Cervantes (Adult Med) [address] [place] [address] [id number] 0 04/23/2022 12:03:15 04/27/2022 11:44:12 Essential hypertension 13091186 I10 Low salt diet, avoid NSAID, such as advil, ibuprofen or aspirin. Also avoid OTC decongesta nt if possible Will put in medication . He ran out medication for hypertensi on, or may be he has lower back pain will refill. Will order losartan with HCTZ, hopefully to bring down the Blood pressure to safer range, he agreed to try. Blood pressure reading today is 142/86 mm HG. 11-09-2021 . Ad 04-23-2022 . blood pressure reading is 132/84 . Chronic low back pain 27 2071497 M54.50 Under the care of his neurosurge on.. Called the pharmacy to refill ibuprofen and gabapentin . today 11-09-2021 .. stable. able to ambulating without assistance . [id number] CATARINO Velazquez (Adult Med) [address] [place] [address] [id number] 0 12/10/2022 11:38:35 12/13/2022 14:27:52 Obesity 677370791 E66.9 BMI is 31. , low salt diet, exercise and keep the weight down. Administra tion of influenza vaccine 97602577 Z23 Patient tolerated shot well. Essential hypertension 48463523 I10 Low salt diet, avoid NSAID, such as advil, ibuprofen or aspirin. Also avoid OTC decongesta nt if possible Will put in medication . He ran out medication for hypertensi on, or may be he has lower back pain will refill. Will order losartan with HCTZ, hopefully to bring down the Blood pressure to safer range, he agreed to try. Blood pressure reading today is 142/86 mm HG. 11-09-2021 . Ad 04-23-2022 . blood pressure reading is 132/84 . 12-10-2022 . BP is 134/82. will continue same med. and monitor BP, he agreed. Screening for malignant neoplasm of colon 990883868 Z12.11 He agreed. [id number] MD Oseas Cervantes (Adult Med) [address] [place] [address] [id number] 0 03/08/2023 11:59:52 03/10/2023 13:08:09 Chronic low back pain 334686854 M54.50 Under the care of his neurosurge on.. Called the pharmacy to refill ibuprofen and gabapentin . today 11-09-2021 .. stable. able to ambulating without assistance . He is going to [facility] PT, he will make appointmen t with them. Essential hypertension 69892671 I10 Low salt diet, avoid NSAID, such as advil, ibuprofen or aspirin. Also avoid OTC decongesta nt if possible Will put in medication . He ran out medication for hypertensi on, or may be he has lower back pain will refill. Will order losartan with HCTZ, hopefully to bring down the Blood pressure to safer range, he agreed to try. Blood pressure reading today is 142/86 mm HG. 11-09-2021 . Ad 04-23-2022 . blood pressure reading is 132/84 . 12-10-2022 . BP is 134/82. will continue same med. and monitor BP, he agreed. As 03-08-23 BP is 136/86. med refill will monitor BP . Morbid obesity 745016855 E66.01 Low salt diet, exercise and keep the weight down. BMI is 31.4. [id number] MD Oseas Hernandez (Adult Med) [address] [place] [address] [id number] 0 10/19/2024 11:49:08 10/19/2024 13:28:37 Essential hypertension 73256635 I10 Screening for malignant neoplasm of prostate 839933867 Z12.5 Pain in elbow 97962617 M 25.522 Pain of bi lateral hands 7588098649 0582727 M79.642 Health Concerns Section Related Observation LastModified by Organization Detai ls LastModified Time None Recorded Concern Status LastModified by Organization Details LastModified Time None Recorded Advance Directives Directive N: Payers Encounter Date Sequence Insurance Name Policy Number Policy Thacker Covered Member ID Thacker Member ID Guarantor Name 02/08/2022 1 [facility] (MEDICAID HMO) [id number] 0003 Antwane Givens [id number] Antwane Givens Sr 04/23/2022 1 [facility] (MEDICAID HMO) [id number] 0003 Antwane Givens [id number] Antwane Givens Sr 12/10/2022 1 [facility] (MEDICAID HMO) [id number] 0003 Antwane Givens [id number] Antwane Givens Sr 03/08/2023 1 [facility] (MEDICAID HMO) [id number] 0003 Antwane Givens [id number] Antwane Givens Sr 10/19/2024 1 [facility] EV BENEFITS MANAGEMENT [id number] Antwane Givens [id number] Antwane Givens Sr 10/19/2024 2 [facility] AETNA (PPO) [id number] Antwane Givens Sr [id number] Antwane Givens Sr Notes Date Note Type Note Provider Name and Address Organization Details Recorded Time 02/08/2022 text/html Office visit, wi ll have second lower back operation for the herniated disc L4-L5 which was caused at work-related injury in 2018, since then he had 2 epidural injections , but not much improvement. around October 2020, he had lower back operation, and in 2021 2 additional epidural injections were administered but in vain, dany has pain radiating from lower back to left leg which made him unable to perform even ADL, has to lied down. He is on losartan for hypertension and ibuprofen 800 mg tid for the relief of pain. He was informed to stop ibuprofen at least 5-7 days before the operation which will be next week 02-17-2022 at [facility]. NKDA. Cathy Dunbar MD Attn: [address] [place], [address], [facility] 07/20/2022 19:17:07 04/23/2022 text/html Office visit, hypertension , wants to refill medications.NKDA. Cathy Dunbar MD Attn: [address] [place], [address], [facility] 04/23/2022 18:03:48 12/10/2022 text/html Office visit, NKDA. history of hypertension. on losartan/HCTZ. he has not taken metoprolol for a while. Also will screen for colon cancer , he agreed. CATARINO Velazquez, [facility] 12/10/2022 14:17:13 03/08/2023 text/html Office visit. NKDA. had lower back operations twice. Still stiff , some soreness, will need PT for about one month. he claims that he can perform the regular job but needs FMLA form filled out. Cathy Dunbar MD Attn: [address] [facility], [place], [address], [facility] 03/08/2023 13:06:57 10/19/2024 text/html 44-year-old who was at work started have little bit of pain in his left elbow and left hand went to the on-site clinic pressure was high so they sent him to [facility] where he says an IV was placed but he did not get back and see the doctor he just left after awhile because they told him it was going to be several hours. He had no chest pain or shortness of breath no headache. He has not been taking his blood pressure regularly. Also has a history of back surgery x2. Medications losartan 100 HCTZ 12.5 allergies none surgeries sinus surgery and low back surgery. Family history mother lupus hypertension has a sibling with hypertension he is unaware of his father's medical history. 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, [place], [address], [facility] 10/20/2024 12:38:44
--- OUTSIDE RECORDS SUMMARY | 2025-01-10 13:27 | XMS_ITS | Clinical Summary ---
Author Organization [facility] Address [address] [place] [address] Phone Care Team Providers Care Operations Management Professionals Name Role Phone Cathy Dunbar MD Primary Care Provider [phone] Allergies No known active allergies Medications losartan-hydroCHLO ROthiazide (HYZAAR) 100-12.5 mg tablet Take 1 Tablet by mouth daily. Active metoprolol succinate (TOPROL XL) 50 mg Extended Release 24 hour tablet Take 50 mg by mouth daily. Active cyclobenzaprine (FLEXERIL) 10 mg tablet Take 1 Tablet (10 mg) by mouth every 8 hours as needed for Spasm. 42 Tablet 1 02/18/2022 4:52 PM CDT 2 Active oxyCODONE-acetamin ophen (PERCOCET) 7.5-325 mg TabletIndications: Lumbar radiculopathy Take 1 Tablet by mouth every 4 hours as needed for moderate pain. 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 Gender Identity Not on file Sexual Orientation Not on file Last Filed Vital Signs Vital Sign Reading Time Taken Comments Blood Pressure 119/66 02/18/2022 12:57 PM CDT Pulse 81 02/18/2022 12:57 PM CDT Temperature 36.8 C (98.3 F) 02/18/2022 12:57 PM CDT Respiratory Rate 16 02/18/2022 12:57 PM CDT Oxygen Saturation 99% 02/18/2022 12:57 PM CDT Inhaled Oxygen Concentration - - Weight 99 kg (218 lb 3.2 oz) 02/18/2022 12:09 AM CDT Height 170.2 cm (5' 7 ) 02/17/2022 4:48 PM CDT Body Mass Index 34.17 02/17/2022 4:48 PM CDT Plan of Treatment Health Maintenance Due Date Last Done Comments DTAP/TDAP/TD VACCINES (1 - Tdap) 1997 HEPATITIS B VACCINES (1 of 3 - 19+ 3-dose series) 1997 COLORECTAL SCREENING 2023 Colorectal Cancer Screening 2023 FIT-DNA Q 3 years 2023 FIT/FOBT Q 1 year 2023 Flex Sig/CT Colonography Q 5 years 2023 INFLUENZA VACCINE (#1) 2024 HPV VACCINES Aged Out No longer eligi ble based on patient's age to complete this topic PNEUMOCOCCAL VACCINE 0-49 YEARS Aged Out No longer eligible based on patient's age to complete this topic Medical Devices Implanted Type Area Marine Radio Installer And Servicer Device Identifier Shelf Expiration Date Model / Serial / Lot 8.5-13mm Expandable Tlif [id number] Degrees Implanted:Qty: 1 on 02/17/2022 by Edvin Bernard MD at [facility] Cage Left: Spine Lumbar ZAVATION [id number] 02/16/2022 / [id number] Description:1X ADD XIMENA REQ# [id number] Hemostatic Surgiflo 8ml W/Thrombin 2994 - [id number] Implanted:Qty: 1 on 10/29/2020 by Edvin Bernard MD at [facility] Hemostatic Left: Spine Lumbar [employer] 11/06/2021 2994 / / [id number] Putty Graft I-Factor Peptide Enhanced 5.0ml Syr 700-050 - Sna Implanted:Qty: 1 on 02/17/2022 by Edvin Bernard MD at [facility] Putty Left: Spine Lumbar [employer] 09/06/2024 700-050 / NA / [id number] Description:XIMENA REQ# [id number] 40mm Pre-Lordosed Toño Implanted:Qty: 2 on 02/17/2022 by Edvin Bernard MD at [facility] Toño Left: Spine Lumbar [employer] [id number] / 02/16/2022 / Description:1X ADD Set Screw Nxg Implanted:Qty: 4 on 02/17/2022 by Edvin Bernard MD at [facility] Screw Left: Spine Lumbar [employer] 36-2000 / 02/16/2022 / Description:1X ADD XIMENA REQ# [id number] 7.5mm X 45mm Modular Midline Fixation Screw Implanted:Qty: 4 on 02/17/2022 by Edvin Bernard MD at [facility] Screw Left: Spine Lumbar [employer] [id number] / 02/16/2022 / Description:1X ADD Body, Top Loading Nxg Implanted:Qty: 4 on 02/17/2022 by Edvin Bernard MD at [facility] Spine Left: Spine Lumbar [employer] 36-2100 / 02/16/2022 / Description:1X ADD Gel Allofuse Dbm 5ml [id number] - Sna Implanted:Qty: 1 on 02/17/2022 by Edvin Bernard MD at [facility] Tissue Left: Spine Lumbar [employer] 03/20/2024 [id number] / NA / [id number] Description: BR Requisition: [id number] Putty Allofuse+ Dbm 5ml [id number] - Sna Implanted:Qty: 1 on 02/17/2022 by Edvin Bernard MD at [facility] Tissue Left: Spine Lumbar [employer] 09/19/2023 [id number] / NA / [id number] Description: BR Requisition: [id number] Explanted Type Area Marine Radio Installer And Servicer Device Identifier Shelf Expiration Date Model / Serial / Lot Hemostatic Surgiflo 8ml W/ Thrombin 2994 - Sna Explanted:Qty: 1 on 02/17/2022 by Edvin Bernard MD at [facility] Hemostatic Left: Spine Lumbar [employer] 05/06/2023 2994 / NA / [id number] Insurance [place] RX [employer] Express [facility] [employer] Advance Directives For more information, please contact: [phone] * Full Code (Latest Code Status on File) Date Activated Date Inactivated Comments 02/17/2022 4:46 PM 02/18/2022 7:46 PM Care Teams Operations Management Professionals Relationship Specialty Start Date End Date Cathy Dunbar MD [address] [place] [address] PCP - General Internal Medicine 10/17/20
--- OUTSIDE RECORDS SUMMARY | 2025-01-10 13:27 | XMS_ITS | Clinical Summary ---
Author Organization [facility] Care Team Providers Care Pbx Supervisor Name Role Phone Unavailable Primary Care Provider Unavailabl e Social History Tobacco Use Types Packs/Day Years Used Date Smoking Tobacco: Never Assessed Sex and Gender Information Value Date Recorded Sex Assigned at Not on file Legal Sex Male 11:16 AM CDT Gender Identity Not on file Sexual Orientation Not on file Plan of Treatment Health Maintenance Due Date Last Done Comments Hepatitis C Virus (HCV) Screening 1978 TdaP Immunization 1978 Hepatitis B Immunization (1 of 3 - 19+ 3-dose series) 1997 Colonoscopy 2023 Colorectal Cancer Screening 2023 Influenza Immunization (#1) 2024 SARS-COV-2 Immunization ( season) 2024 Respiratory Syncytial Virus (RSV) Immunization (Adult) (1 - 1-dose 75+ series) 2053 Meningococcal Immunization (ACWY) Aged Out No longer eligible based on patient's age to complete this topic Pneumococcal Immunization Combined Aged Out No longer eligible based on patient's age to complete this topic Rotavirus Immunization Aged Out No lo nger eligible based on patient's age to complete this topic
--- OUTSIDE RECORDS SUMMARY | 2025-01-10 13:27 | XMS_ITS | Continuity of Care Document ---
Author Organization [facility] Address [address] [place] [address] Phone Care Team Providers Care Customer Engineering Specialist Name Role Phone O Melissa CRABTREE, Edvin Unavailable Unavai lable Allergies, Adverse Reactions, Alerts Substance Reaction Status Criticality No Known Allergies Active No Inform ation Medications Medication Instructions Dosage Effective Dates (start - stop) Status Comments losartan 100 mg tablet - Active Mobic 15 mg tablet take 1 tablet by oral route every day - No Longer Active Procedures Procedure Date OFFICE CONSULTATION RADEX SPI LUMBOSAC 2/3 VIEWS LOW BACK DISK SURGERY OFFICE/OUTPATIENT VISIT EST OFFICE/OUTPATIENT VISIT EST OFFICE/OUTPATIENT VISIT EST OFFICE CONSULTATION Advance Directives Directive Yes / No Effective Date File Name Other Directive No N/A N/A WARNING:The information contained in this section is historical and is provided for information only and does not constitute a legal document or any assurance that the information is still accurate. Please verify the information with the wang of the legal document before using it for clinical purposes. Encounters Encounter Description Practice Location Reason(s) For Visit Diagnoses Date Provider Providers Copied on Encounter OFFICE CONSULTATION [facility], [address], [place], [address], [place] tel:[phone] [facility] Left lumbar radiculopathyHer niated nucleus pulposus, L4-5Body mass index (BMI) 28.0-28.9, adult 0 [place]. [address], [place], [place], [address] . tel: [phone] [facility], [address], [place], [address], [place] tel:[phone] [facility] Left lumbar radiculopathyHer niated nucleus pulposus, L4-5Herniation of lumbar intervertebral disc with radiculopathy Oct-0 2-201 9 O Boy[place]. [address], [place], [place], [address] . tel: [phone] OFFICE/OUTPAT IENT VISIT EST [facility], [address] [facility], [place], [address], [place] tel:[phone] [facility] Herniated nucleus pulposus, L4-5Left lumbar radiculopathy Oct-0 2-201 9 [place]. [address], [place], [place], [address] . tel: [phone] OFFICE/OUTPAT IENT VISIT EST [facility], [address] [address], [place], [address], [place] tel:[phone] [facility] Left lumbar radiculopathyHer niated nucleus pulposus, L4-5 Nov-0 4-201 9 O Boy[place], [place], [place], [address] . tel: [phone] OFFICE/OUTPAT IENT VISIT EST [facility], [address] [address], [place], [address], [place] tel:[phone] [facility] Herniated nucleus pulposus, L4-5Left lumbar radiculopathy 1-201 9 [place]. [address], [place], [place], [address] . tel: [phone] OFFICE CONSULTATION [facility], [address] [address], [place], [address], [place] tel:[phone] [facility] Left lumbar radiculopathyHer niated nucleus pulposus, L4-5Body mass index (BMI) 29.0-29.9, adultEssential (primary) hypertension 9 O [place]. [address], [place], [place], [address] . tel:[phone] Family History Family Member Type Diagnosis Age At Onset Mother Problem (finding) Alive and well Payers Payer name Insurance type Covered constitution party ID Vilma jimenez(s) ESIS OT [id number] Social History Type Description Quantity Date Captured Comments Alcohol Use Details No Caffeine Use Details Tobacco Use Status Current non-smoker Smoking Status Never smoker Non-Smoking Tobacco Use Details : No Details Available : No Details Available Sex Male Vital Signs Date / Time: Height Weight BMI Pulse Rate Blood Pressure Temperature Respiratory Rate Body Surface Area Head Circumference Head Circ. Percentile Wt./Alan. Percentile BMI percentile Pulse Ox Inhaled Ox 11:33 AM 68.00 in 86.183 kg (190.00 lbs) 28.8 9 kg/m eter (2) Chief Complaint And Reason For Visit No Information Reason For Referral Reason For Referral No Information Plan Of Treatment Date Type Action Status Goal Lifestyle education regardin g diet completed Goal Lifestyle education regardin g diet completed Referral Ordered: INJ FORAMEN EPIDURAL L/S LT L5 ordered History Of Present Illness Encounter Date Complaint History Of Prese nt Illness No Information Functional Status Date Functional Assessmen t No Information Instructions Date Instruction Additional Infor mation Lifestyle education regarding di et Related to Body mass index (BMI) 28.0-28.9, adult Lifestyle education regarding di et Related to Body mass index (BMI) 29.0-29.9, adult Giving encouragement to exercise Related to Essential hypertension Assessments Type Assessment Date assessment Left lumbar radiculopathy assessment Herniated nucleus pulposus, L4-5 assessment Body mass index (BMI) 28.0-28.9, adult Patient Care Teams Name Effective Dates (start - stop) Status Members No Information
--- OUTSIDE RECORDS SUMMARY | 2025-01-10 17:17 | XMS_ITS | Clinical Summary ---
Author Organization [facility] Care Team Providers Care Busher Helper Name Role Phone Unavailable Primary Care Provider [...]
--- OUTSIDE RECORDS SUMMARY | 2025-01-10 17:17 | XMS_ITS | Continuity of Care Document ---
Author Organization [facility] Address [address] [place] [address] Phone Care Team Providers Care Slip Caster Name Role Phone O Melissa CRABTREE, Edvin [...] accurate. Please verify the information with the awng of the legal document before using it for clinical purposes. Encounters Encounter Description Practice Location Reason(s) For Visit Diagnoses Date Provider Providers Copied on Encounter OFFICE CONSULTATION [facility], [address], [place], [address], [place] tel:[phone] [facility] Left lumbar radiculopathyHer niated nucleus pulposus, L4-5Body mass index (BMI) 28.0-28.9, adult 0 [place]. [address], [place], [place], [address] . tel: [phone] [facility], [address], [place], [address], [place] tel:[phone] [facility] Left lumbar radiculopathyHer niated nucleus pulposus, L4-5Herniation of lumbar intervertebral disc with radiculopathy Oct-0 2-201 9 [place]. [address], [place], [place], [address] . tel: [phone] OFFICE/OUTPAT IENT VISIT EST [facility], [address] [facility] [address], [place], [address], [place] tel:[phone] [facility] Herniated nucleus pulposus, L4-5Left lumbar radiculopathy Oct-0 2-201 9 O Boynick [place]. [address], [place], [place], [address] . tel: [phone] OFFICE/OUTPAT IENT VISIT EST [facility], [address] [address], [place], [address], [place] tel:[phone] [facility] Left lumbar radiculopathyHer niated nucleus pulposus, L4-5 Nov-0 4-201 9 [place], [place], [place], [address] . tel: [phone] OFFICE/OUTPAT IENT VISIT EST [facility], [address] [address], [place], [address], [place] tel:[phone] [facility] Herniated nucleus pulposus, L4-5Left lumbar radiculopathy 1-201 9 O Boyhar[place]. [address], [place], [place], [address] . tel: [phone] OFFICE CONSULTATION [facility], [address] [address], [place], [address], [place] tel:[phone] [facility] Left lumbar radiculopathyHer niated nucleus pulposus, L4-5Body mass index (BMI) 29.0-29.9, adultEssential (primary) hypertension 9 [place]. [address], [place], [place], [address] . tel:[phone] Family History Family Member Type Diagnosis Age At Onset Mother Problem (finding) Alive and well Payers Payer name Insurance type Covered libertarian ID Vilma jimenez(s) ESIS OT [id number] Social History Type Description Quantity Date Captured [...]
--- OUTSIDE RECORDS SUMMARY | 2025-01-10 17:17 | XMS_ITS | Continuity of Care Document ---
Author Organization [facility] Address [address] [place] [address] Phone Care Team Providers Care Residential Designer Name Role Phone Edvin Gilbert MD Unavailable [...] on Encounter Office/outpa tient visit,est, mod [facility], [address] [facility] [address] [facility], [place], [place], [address], [place] tel:[phone] [facility] Lumbar (chief complaint)l umbar spine (chief complaint) Fusion of spine, lumbar region 2 Ofelia Pardo . [address] [facility], [place], [place], [address], [place]. tel:[phone] [facility], [address], [id number], [place] tel:[phone] [facility] Lumbar (chief complaint)l umbar spine (chief complaint) Fusion of spine, lumbar region 2 O'Melissa Christopher . [address] [facility] [address], [place], [place], [address], [place]. tel:[phone] [facility], [address] [address], [place], [place], [address], [place] tel:[phone] [facility] No Information 2 Administrat disha Provider. [address], [address], [place]. tel:[phone] [facility], [address], [id number], [place] tel:[phone] [facility] Lumbar (chief complaint)l umbar spine (chief complaint) Other intervertebr al disc displacement , lumbosacral regionRadicu lopathy, site unspecified 2 O'Melissa Christbessieer . [address] [address], [place], [place], [address], [place]. tel:[phone] [facility], [address], [address], [place] tel:[phone] [facility] No Information 2 O'Melissa Christopher . [address], [id number], [place]. tel:[phone] Office/outpa tient visit,est, mod [facility], [address] [address], [place], [place], [address], [place] tel:[phone] [facility] Lumbar (chief complaint)l umbar spine (chief complaint) Radiculopath y, site unspecifiedO ther intervertebr al disc displacement , lumbosacral region 2 O'Boynick Christopher . [address] [facility], [place], [place], [address], [place]. tel:[phone] [facility], [address] [address], [place], [place], [address], [place] tel:[phone] [facility] Lumbar (chief complaint)l umbar spine (chief complaint) Radiculopath y, site unspecifiedO ther intervertebr al disc displacement , lumbosacral region Mar-0 - 2 O'Boynick Christopher . [address] [facility], [address], [place], [place], [address], [place]. tel:[phone] Office/outpa tient visit,est, [facility], [address] [address], [place], [place], [address], [place] tel:[phone] [facility] Lumbar (chief complaint)l umbar spine (chief complaint) Other intervertebr al disc displacement , lumbosacral regionRadicu lopathy, site unspecifiedL ow back pain, unspecified Feb-2 2 O'Melissa Christopher . [address] [facility], [address] [address], [place], [place], [address], [place]. tel:[phone] [facility], [address], [address], [place] tel:[phone] [facility] Lumbar (chief complaint)l umbar spine (chief complaint) Radiculopath y, site unspecifiedO ther intervertebr al disc displacement , lumbosacral region Feb-1 2 O'Boynick Christopher . [address] [facility], [facility] [address], [place], [place], [address], [place]. tel:[phone] [facility], [address] [address], [place], [place], [address], [place] tel:[phone] [facility] Other intervertebr al disc displacement , lumbosacral regionRadicu lopathy, site unspecifiedL ow back pain, unspecified Feb-0 - 2 Ofelia Pardo . [address] [facility], [facility] [address], [place], [place], [address], [place]. tel:[phone] [facility], [address] [address], [place], [place], [address], [place] tel:[phone] [facility] No Information 1 Administrat disha Provider. [address] [facility], [address] [address], [place], [place], [address], [place]. tel:[phone] [facility], [address] [address], [place], [place], [address], [place] tel:[phone] [facility] No Information 1 Administrat disha Provider. [address] [facility], [address] [address], [place], [place], [address], [place]. tel:[phone] [facility], [address] [address], [place], [place], [address], [place] tel:[phone] [facility] No Information 1 Ofelia Pardo . [address] [facility], [address] [address], [place], [place], [address], [place]. tel:[phone] Office/outpa tient visit,est, mod [facility], [address] [address], [place], [place], [address], [place] tel:[phone] [facility] Lumbar (chief complaint)l umbar spine (chief complaint) Radiculopath y, site unspecifiedO ther intervertebr al disc displacement , lumbosacral regionLow back pain Sep-1 1 Ofelia Pardo . [address] [facility], [address] [address], [place], [place], [address], [place]. tel:[phone] [facility], [address] [address], [place], [place], [address], [place] tel:[phone] [facility] Low back painRadiculo nicolas, site unspecified Sep-0 9-202 1 [facility]. [address] [facility], [address], [place], [place], [address], [place]. tel:[phone] Referring Provider: Edvin Lizama, [address] [facility] [address], [place], [address]. tel:[phone] Office/outpa tient visit,est, [facility], [address] [facility] [address], [place], [place], [address], [place] tel:[phone] [facility] lumbar (chief complaint)l umbar spine (chief complaint) Low back painOther intervertebr al disc displacement , lumbosacral regionRadicu lopathy, site unspecified 1 Ofelia Pardo . [address] [facility], [address], [place], [place], [address], [place]. tel:[phone] Office/outpa tient visit,est, [facility], [address] [facility] [address], [place], [place], [address], [place] tel:[phone] [facility] lumbar (chief complaint)l umbar spine (chief complaint) Low back painOther intervertebr al disc displacement , lumbosacral regionRadicu lopathy, site unspecified 1 Ofelia Pardo . [address] [facility], [address], [place], [place], [address], [place]. tel:[phone] [facility], [address] [facility] [address], [address], [place] tel:[phone] [facility] No Information 1 Administrat disha Provider. [address] [facility], [facility] [address], [place], [place], [address], [place]. tel:[phone] Office/outpa tient visit,est, [facility], [address], [address], [place] tel:[phone] [facility] lumbar (chief complaint)g eneral orthopedic (chief complaint) Other intervertebr al disc displacement , lumbosacral regionLow back pain 1 Ofelia Pardo . [address] [address], [place], [place], [address], [place]. tel:[phone] [facility], [address], [address], [place] tel:[phone] [facility] Lumbar (chief complaint)g eneral orthopedic (chief complaint) Other intervertebr al disc displacement , lumbosacral region Jan- 1 Ofelia Pardo . [address], [address], [place]. tel:[phone] Office/outpa tient visit,[facility], [address], [address], [place] tel:[phone] [facility] lumbar (chief complaint)g eneral orthopedic (chief complaint) LumbagoOther intervertebr al disc displacement , lumbosacral region 1 Ofelia Pardo . [address] [address], [place], [place], [address], [place]. tel:[phone] [facility], [address], [address], [place] tel:[phone] [facility] low back (chief complaint)g eneral orthopedic (chief complaint) Lumbago 1 Ofelia Prado . [address], [address], [place]. tel:[phone] Family History Family Member Type Diagnosis Age [...] any significant lifting requirements. 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 Related to Fusion [...] was entered by Holly Mckinney, acting as Pellet Mill Operator for Edvin Gilbert MD. Related to Fusion [...] was entered by Tasia Hunter, acting as Pellet Mill Operator for Edvin Gilbert MD. Related to Other [...] was entered by Holly Mckinney, acting as Pellet Mill Operator for Edvin Gilbert MD. Related to Radiculopathy, [...] was entered by Tasia Hunter, acting as Pellet Mill Operator for Edvin Gilbert MD. Related to Radiculopathy, [...] was entered by Tasia Hunter, acting as Pellet Mill Operator for Edvin Gilbert MD. Related to Radiculopathy, [...] was entered by Holly Mckinney, acting as Pellet Mill Operator for Edvin Gilbert MD. Related to Low [...] was entered by Isamar Gaytan, acting as Pellet Mill Operator for Edvin Gilbert MD. Related to Low [...] request that this study be completed at [facility], at the [facility], or at another quality facility in [place]. I would request that this not be performed at a [facility] facility, the [facility] MRI facility, or the [facility] facility in [place]. This should be an MRI with contrast. He can follow up with me after the completion of the study. I will make no changes in his work restrictions.The medical record documentation of this Provider's service encounter was entered by Holly Mckinney, acting as Pellet Mill Operator for Edvin Gilbert MD Related to Radiculopathy, [...] was entered by Holly Mckinney, acting as Pellet Mill Operator for Edvin Gilbert MD Related to Radiculopathy, [...] was entered by Holly Mckinney, acting as Pellet Mill Operator for Edvin Gilbert MD. Related to Low [...] was entered by Holly Mckinney, acting as Pellet Mill Operator for Edvin Gilbert MD. Related to Other [...] was entered by Holly Mckinney, acting as Pellet Mill Operator for Edvin Gilbert MD. Related to Lumbago [...] was entered by Holly Mckinney, acting as Pellet Mill Operator for Edvin Gilbert MD. Related to Other intervertebral disc displacement, lumbosacral region Assessments Type Assessment Date assessment Fusion of spine, lumbar region J Patient Care Teams Name Effective Dates (start - stop) Status Members No Information
--- OUTSIDE RECORDS SUMMARY | 2025-01-10 17:17 | XMS_ITS | Clinical Summary ---
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 Gender Identity Not on file Sexual Orientation [...] this topic Medical Devices Implanted Type Area Social Insurance Analyst Device Identifier Shelf Expiration Date Model / Serial / Lot 8.5-13mm Expandable Tlif [id number] Degrees Implanted:Qty: 1 on 02/17/2022 by Edvin Bernard MD at [facility] Cage Left: Spine Lumbar ZAVATION [id number] 02/16/2022 / [id number] Description:1X ADD XIMENA REQ# [id number] Hemostatic Surgiflo 8ml W/Thrombin 2994 - [id number] Implanted:Qty: 1 on 10/29/2020 by Edvin Bernard MD at [facility] Hemostatic Left: Spine Lumbar [employer]J- [employer] 11/06/2021 2994 / / [id number] Putty Graft I-Factor Peptide Enhanced 5.0ml Syr 700-050 - Sna Implanted:Qty: 1 on 02/17/2022 by Edvin Bernard MD at [facility] Putty Left: Spine Lumbar [employer] 09/06/2024 700-050 / NA / [id number] Description:XIMENA REQ# [id number] 40mm Pre-Lordosed Toño Implanted:Qty: 2 on 02/17/2022 by Edvin Bernard MD at [facility] Toño Left: Spine Lumbar [employer] [id number] / 02/16/2022 / Description:1X ADD Set Screw Nxg Implanted:Qty: 4 on 02/17/2022 by Edvin Bernard MD at [facility] Screw Left: Spine Lumbar [employer] 36-2000 / 02/16/2022 / Description:1X ADD XIMENA REQ# [id number] 7.5mm X 45mm Modular Midline Fixation Screw Implanted:Qty: 4 on 02/17/2022 by Edvin Bernard MD at [facility] Screw Left: Spine Lumbar [employer] [id number] / 02/16/2022 / Description:1X ADD Body, Top Loading Nxg Implanted:Qty: 4 on 02/17/2022 by Edvin Bernard MD at [facility] Spine Left: Spine Lumbar [employer] 36-2100 / 02/16/2022 / Description:1X ADD Gel Allofuse Dbm 5ml [id number] - Sna Implanted:Qty: 1 on 02/17/2022 by Edvin Bernard MD at [facility] Tissue Left: Spine Lumbar [employer] 03/20/2024 [id number] / NA / [id number] Description: BR Requisition: [id number] Putty Allofuse+ Dbm 5ml [id number] - Sna Implanted:Qty: 1 on 02/17/2022 by Edvin Bernard MD at [facility] Tissue Left: Spine Lumbar [employer] 09/19/2023 [id number] / NA / [id number] Description: BR Requisition: [id number] Explanted Type Area Social Insurance Analyst Device Identifier Shelf Expiration Date Model / Serial / Lot Hemostatic Surgiflo 8ml W/ Thrombin 2994 - Sna Explanted:Qty: 1 on 02/17/2022 by Edvin Bernard MD at [facility] Hemostatic Left: Spine Lumbar J[employer]J- [employer] 05/06/2023 2994 / NA / [id number] Insurance [place] MED[place] RX EXPRESS [employer] Express RX [facility] [employer] ESIS Advance Directives For more information, please contact: [phone] * Full Code (Latest Code Status on File) Date Activated Date Inactivated Comments 02/17/2022 4:46 PM 02/18/2022 7:46 PM Care Teams Records And Information Manager Relationship Specialty Start Date End Date Cathy Dunbar MD [address] [place] [address] PCP - General Internal Medicine 10/17/20
--- NOTE | 2025-01-10 17:30 | ED_ITS ---
HPI - Extremity Problem General Chief complaint: Extremity Problem,Nontraumatic Stated complaint: L hand swelling Time Seen by Provider: 01/10/25 16:48 History of Present Illness HPI Narrative: 44-year-old male presents emergency department for evaluation for left wrist pain. 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 Patient states he has been using his hands and wrists more than his typical job. Patient reports pain at left with with flexion and extension Related Data Home Medications ?Medication ?Instructions ?Recorded ?Confirmed ?Last Taken ?Type gabapentin 300 mg capsule 300 mg PO DAILY 06/16/21 06/16/21 Unknown History losartan 100 1 tablet PO DAILY 06/16/21 06/16/21 Unknown History mg-hydrochlorothiazide 12.5 mg tablet tizanidine 4 mg tablet 4 mg PO DAILY 06/16/21 06/16/21 Unknown History Allergies Allergy/AdvReac Type Severity Reaction Status Date / Time No Known Allergies Allergy Verified 05/28/24 08:40 Review of Systems Review of Systems: All systems reviewed & are unremarkable except as noted in HPI and below [facility] Past Medical History Medical History (Updated 01/10/25 @ 17:34 by Hector Rob MD) Hypertension Bulging discs L1-L2 the disc does not extend beyond the endplate marginal. Mild bilateral facet joint osteoarthritis L2-L3 the disc is bulging. Mild bilateral facet joint osteoarthritis. L3-L4 the disc is bulging. Mild bilateral facet joint osteoarthritis. L4-L5 to discuss bulging. There is mild bilateral facet joint osteoarthritis. L 5 to S1 the discuss bulging. Mild bilateral facet joint osteoarthritis. History of hypertension Surgical History Surgical History H/O sinus surgery 2001 Family History Family History Grandparent Diabetes mellitus Hypertension Mother Lupus Acute myocardial infarction Heart disease Seizure Social History Social History Social History: The patient works what once was known as [employer]. He is . He is lifelong nonsmoker. He denies any marijuana or illicit drug use. The patient has 5 children. His is the durable power prosecuting attorney for healthcare. He desires to be a full code. He is currently laid off of [employer]. He denies any alcohol use. Smoking status: Never smoker Alcohol intake: unknown Substance use: never Substance use type: prescription drug Gender identity (if verbalized by the patient): Male Spiritual care concerns: No Exam Narrative: APPEARANCE: Well appearing, no pain, no distress, well-nourished. HEAD: normocephalic, atraumatic. EYES: PERRLA/EOMI, conjunctivae clear. NOSE: Normal no drainage EARS:TMS clear with good light reflex. THROAT: Pharynx clear, no exudate. NECK: Supple. No adenopathy, no masses. RESPIRATORY: Airway patent, respirations nonlabored. Clear to auscultation bilaterally, no rales, rhonchi, wheezing. CARDIOVASCULAR: Regular rate and rhythm without murmurs rubs or gallops. ABDOMINAL: Soft, nontender, nondistended, normal bowel sounds MUSCULOSKELETAL: Tenderness to carpal tunnel on a left wrist NEURO: Alert. Cranial nerves II through XII intact. Good gait. Good coordination SKIN: Warm, dry. Normal Color PSYCHIATRIC: Normal affect/mood. Course Vital Signs Vital signs: Vital Signs Temperature 97.8 F 01/10/25 12:22 Pulse Rate 64 01/10/25 12:22 Respiratory Rate 16 01/10/25 12:22 Blood Pressure 148/91 H 01/10/25 12:22 Pulse Oximetry 98 01/10/25 12:22 Oxygen Delivery Room Air 01/10/25 12:22 Temperature 97.8 F 01/10/25 12:22 Pulse Rate 65 01/10/25 18:12 Respiratory Rate 18 01/10/25 18:12 Blood Pressure 143/68 H 01/10/25 18:12 Pulse Oximetry 99 01/10/25 18:12 Oxygen Delivery Room Air 01/10/25 12:22 MDM - Extremity (Nontraumatic) MDM Narrative Medical decision making narrative: 44-year-old male presents emergency department for evaluation for left wrist pain consistent with carpal tunnel syndrome. Patient was started on naproxen. Patient already has a wrist brace that he was wearing is advised to wear it at nighttime. Patient was encouraged close follow-up with Orthopedics. Imaging Data Radiologist's impression: Impressions Hand X-Ray 01/10/25 12:48 IMPRESSION: 1. Mild osteoarthritis of first carpometacarpal joint. Discharge Plan Discharge Clinical Impression: Acute carpal tunnel syndrome of left wrist Patient Disposition: Home, Self-Care Condition: Stable Instructions: Antibiotic Form, Carpal Tunnel Syndrome (DC) Additional Instructions: Naproxen as directed for the next 14 days. Limit wrist movement and wear a wrist splint at nighttime. Have close follow-up with your primary care physician, I do recommend follow-up with Orthopedics. Patient Language: Occitan Prescriptions: New naproxen 500 mg tablet 500 mg PO BID Qty: 14 0RF No Action tizanidine 4 mg tablet 4 mg PO DAILY gabapentin 300 mg capsule 300 mg PO DAILY losartan-hydrochlorothiazide 100-12.5 mg tablet 1 tablet PO DAILY amoxicillin-pot clavulanate 875-125 mg tablet 1 tablet PO Q12H Qty: 20 0RF Follow-up/Referrals: Tre Aguilar MD [Physician] - UNKNOWN,DOCTOR [Primary Care Provider] - Stand Alone Forms: Work/School Release IP
[2025-01-10 18:12] VITALS: BP 143/68; PULSE 65; RESP 18; O2SAT 99
== END 2025-01-10 18:12 | disposition home or self-care (01) ==
PROVIDERS: Emergency Provider Emergency Medicine
DX: G56.02 Carpal tunnel syndrome, left upper limb (principal); I10 Essential (primary) hypertension; M47.816 Spondylosis without myelopathy or radiculopathy, lumbar region; M18.9 Osteoarthritis of first carpometacarpal joint, unspecified
CPT/HCPCS: 73130; 99283

== ENCOUNTER 2025-06-19 09:59 | Outpatient (CLI) | payer OTHER, SELFPAY ==
--- NOTE | ~2025-06-19 | XR_ITS ---
Exam: X-ray left hand minimum 3 views. HISTORY: Bilateral hand pain. COMPARISON: 01/10/2025. TECHNIQUE: 3 images of the left hand were obtained. FINDINGS: Mild degenerative change in the first carpometacarpal joint, unchanged. Bone mineralization is within normal limits. No fracture. No dislocation. IMPRESSION: 1. No acute bony abnormality. 2. Mild degenerative change in the first carpometacarpal joint. Reviewed, dictated and finalized at location A.
--- NOTE | ~2025-06-19 | XR_ITS ---
Exam: X-ray right hand minimum 3 views Clinical history: Bilateral hand pain. TECHNIQUE: 3 images of the right hand were obtained. Comparisons: None. FINDINGS: Bone mineralization is within normal limits. No sporadically destructive bone lesions. No fracture. N o dislocation. Mild degenerative change in the first carpometacarpal joint and first metacarpophalangeal joint. IMPRESSION: 1. No acute bony abnormality identified. 2. Mild degenerative change in the first carpometacarpal joint and first metacarpophalangeal joint. Reviewed, dictated and finalized at location A. IMPRESSION: 1. No acute bony abnormality identified. 2. Mild degenerative change in the first carpometacarpal joint and first metaca rpophalangeal joint.
--- OUTSIDE RECORDS SUMMARY | 2025-06-19 10:14 | XMS_ITS | Continuity of Care Document ---
Author Organization [facility] Address [address] [place] [address] Phone Care Team Providers Care Case Advocate Name Role Phone O Melissa CRABTREE, Edvin [...] on Encounter OFFICE CONSULTATION [facility], [address], [place], [address], [place] tel:[phone] [facility] Left lumbar radiculopathyHer niated nucleus pulposus, L4-5Body mass index (BMI) 28.0-28.9, adult 0 [place]. [address], [place], [place], [id number] . tel: [phone] [facility], [address], [place], [address], [place] tel:[phone] [facility] Left lumbar radiculopathyHer niated nucleus pulposus, L4-5Herniation of lumbar intervertebral disc with radiculopathy Oct-0 2-201 9 [place], [place], [place], [id number] . tel: [phone] OFFICE/OUTPAT IENT VISIT EST [facility], [address] [facility] [address] [facility] [address], [place], [address], [place] tel:[phone] [facility] Herniated nucleus pulposus, L4-5Left lumbar radiculopathy Oct-0 2-201 9 [place]. [address], [place], [place], [id number] . tel: [phone] OFFICE/OUTPAT IENT VISIT EST [facility], [address] [address], [place], [address], [place] tel:[phone] [facility] Left lumbar radiculopathyHer niated nucleus pulposus, L4-5 Nov-0 4-201 9 [place], [place], [place], [id number] . tel: [phone] OFFICE/OUTPAT IENT VISIT EST [facility], [address] [address], [place], [address], [place] tel:[phone] [facility] Herniated nucleus pulposus, L4-5Left lumbar radiculopathy 1-201 9 [place]. [address], [place], [place], [address] . tel: [phone] OFFICE CONSULTATION [facility], [address] [address], [place], [address], [place] tel:[phone] [facility] Left lumbar radiculopathyHer niated nucleus pulposus, L4-5Body mass index (BMI) 29.0-29.9, adultEssential (primary) hypertension 9 [place]. [address], [place], [place], [address] . tel:[phone] Family History Family Member Type Diagnosis Age At Onset Mother Problem (finding) Alive and well Payers Payer name Insurance type Covered constitution party ID Vilma jimenez(s) ESIS OT [id number] Social History Type Description Quantity Date Captured [...]
--- OUTSIDE RECORDS SUMMARY | 2025-06-19 10:14 | XMS_ITS | Continuity of Care Document ---
Author Organization [facility] Address [address] [place] [address] Phone Care Team Providers Care Floor Clerk Name Role Phone Edvin Gilbert MD, MD Unavailable Yeimy vailable Allergies, Adverse Reactions, Alerts Substance Reaction Status [...] on Encounter Office/outpa tient visit,est, mod [facility], [address] [facility], [place], [place], [id number], [place] tel:[phone] [facility] [email or web address] Lumbar (chief complaint)l umbar spine (chief complaint) Fusion of spine, lumbar region 2 Ofelia Pardo . [address] [facility], [address], [place], [place], [address], [place]. tel:[phone] [facility], [address], [id number], [place] tel:[phone] [facility] [email or web address] Lumbar (chief complaint)l umbar spine (chief complaint) Fusion of spine, lumbar region 2 Ofelia Pardo . [address], [id number], [place]. tel:[phone] [facility], [address] [address], [place], [place], [address], [place] tel:[phone] [facility] No Information 2 Administrat disha Provider. [address], [id number], [place]. tel:[phone] [facility], [address], [id number], [place] tel:[phone] [employer] Lumbar (chief complaint)l umbar spine (chief complaint) Other intervertebr al disc displacement , lumbosacral regionRadicu lopathy, site unspecified 2 Ofelia Pardo . [address] [address], [place], [place], [address], [place]. tel:[phone] [employer] [facility], [address], [id number], [place] tel:[phone] [facility] No Information 2 Ofelia Pardo . [address], [id number], [place]. tel:[phone] Office/outpa tient visit,est, mod [facility], [address], [id number], [place] tel:[phone] [facility] [email or web address] Lumbar (chief complaint)l umbar spine (chief complaint) Radiculopath y, site unspecifiedO ther intervertebr al disc displacement , lumbosacral region 2 Ofelia Pardo . [address] [facility], [facility] [address], [place], [place], [address], [place]. tel:[phone] [facility], [address] [address], [place], [place], [address], [place] tel:[phone] [facility] Lumbar (chief complaint)l umbar spine (chief complaint) Radiculopath y, site unspecifiedO ther intervertebr al disc displacement , lumbosacral region Jan-0 2 Ofelia Pardo . [address] [facility], [address] [address], [place], [place], [address], [place]. tel:[phone] Office/outpa tient visit,est, mod [facility], [address], [id number], [place] tel:[phone] [facility] [email or web address] Lumbar (chief complaint)l umbar spine (chief complaint) Other intervertebr al disc displacement , lumbosacral regionRadicu lopathy, site unspecifiedL ow back pain, unspecified Dec- 2 Ofelia Pardo . [address] [facility], [address] [address], [place], [place], [address], [place]. tel:[phone] [facility], [address], [id number], [place] tel:[phone] [facility] Lumbar (chief complaint)l umbar spine (chief complaint) Radiculopath y, site unspecifiedO ther intervertebr al disc displacement , lumbosacral region Dec- 2 Ofelia Pardo . [address] [facility], [address] [address], [place], [place], [address], [place]. tel:[phone] [facility], [address], [id number], [place] tel:[phone] [facility] Other intervertebr al disc displacement , lumbosacral regionRadicu lopathy, site unspecifiedL ow back pain, unspecified Feb-0 - 2 Ofelia Pardo . [address] [address], [place], [place], [address], [place]. tel:[phone] [facility] [email or web address], [address] [address], [place], [place], [address], [place] tel:[phone] [facility] [email or web address] No Information 1 Administrat disha Provider. [address] [address], [place], [place], [address], [place]. tel:[phone] [facility], [address] [place] [address], [place], [place], [address], [place] tel:[phone] [facility] [email or web address] No Information 1 Administrat disha Provider. [address] [address], [place], [place], [address], [place]. tel:[phone] [facility] [email or web address], [address] [address], [place], [place], [address], [place] tel:[phone] [facility] No Information 1 Ofelia Pardo . [address] [address], [place], [place], [address], [place]. tel:[phone] Office/outpa tient visit,est, mod [facility], [address] [address], [place], [place], [address], [place] tel:[phone] [facility] [email or web address] Lumbar (chief complaint)l umbar spine (chief complaint) Radiculopath y, site unspecifiedO ther intervertebr al disc displacement , lumbosacral regionLow back pain Sep- 1 Ofelia Pardo . [address] [address], [place], [place], [address], [place]. tel:[phone] [facility], [address], [id number], [place] tel:[phone] [facility] Low back painRadiculo nicolas, site unspecified 1 [facility]. [address] [facility], [address], [place], [place], [address], [place]. tel:[phone] Referring Provider: Edvin Gilbert MD P, [address] [facility] [address], [place], [address]. tel:[phone] Office/outpa tient visit,est, [facility], [address] [facility] [address] [address], [place], [place], [address], [place] tel:[phone] [facility] lumbar (chief complaint)l umbar spine (chief complaint) Low back painOther intervertebr al disc displacement , lumbosacral regionRadicu lopathy, site unspecified 1 Ofelia Pardo . [address] [facility], [facility] [address], [place], [place], [address], [place]. tel:[phone] Office/outpa tient visit,est, [employer] [facility], [address], [id number], [place] tel:[phone] [facility] lumbar (chief complaint)l umbar spine (chief complaint) Low back painOther intervertebr al disc displacement , lumbosacral regionRadicu lopathy, site unspecified 1 Ofelia Pardo . [address] [facility], [facility] [address], [place], [place], [address], [place]. tel:[phone] [facility], [address], [id number], [place] tel:[phone] [facility] No Information 1 Administrat disha Provider. [address] [facility], [facility] [address], [place], [place], [address], [place]. tel:[phone] Office/outpa tient visit,est, [facility], [address], [id number], tel:[phone] [facility] [email or web address] lumbar (chief complaint)g eneral orthopedic (chief complaint) Other intervertebr al disc displacement , lumbosacral regionLow back pain 1 Ofelia Pardo . [address], [id number], [place]. tel:[phone] [facility] [email or web address], [address], [id number], [place] tel:[phone] [facility] [email or web address] Lumbar (chief complaint)g eneral orthopedic (chief complaint) Other intervertebr al disc displacement , lumbosacral region 1 Ofelia Pardo . [address], [id number], [place]. tel:[phone] Office/outpa tient visit,new, low [facility] [employer], [address], [id number], [place] tel:[phone] [facility] [email or web address] lumbar (chief complaint)g eneral orthopedic (chief complaint) LumbagoOther intervertebr al disc displacement , lumbosacral region 1 Ofelia Pardo . [address], [id number], [place]. tel:[phone] [facility] [email or web address], [address], [id number], [place] tel:[phone] [facility] [email or web address] low back (chief complaint)g eneral orthopedic (chief complaint) Lumbago 1 Ofelia Pardo . [address], [id number], [place]. tel:[phone] Family History Family Member Type Diagnosis Age At Onset No Information Payers Payer name Insurance type Covered libertarian ID Authoriza tion(s) No Information Social History [...] 92.986 kg (205.00 lbs) 32.1 1 kg/m eter (2) Chief Complaint And Reason [...] and he is here today for follow-up. Lumbar Charisse comes in to the office for lumbar spine. Sona Mcqueen comes in to the office [...] any significant lifting requirements. 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 [...] at a new job where is working hhas and full duty, and he has had to schedule his formal physical therapy around his current work schedule. The patient is at a new job where is working hhas and full duty, and he has had [...] was entered by Holly Mckinney, acting as Park Interpreter for Edvin Gilbert MD. Related to Fusion [...] was entered by Holly Mckinney, acting as Park Interpreter for Edvin Gilbert MD. Related to Fusion [...] was entered by Tasia Hunter, acting as Park Interpreter for Edvin Gilbert MD. Related to Other [...] was entered by Holly Mckinney, acting as Park Interpreter for Edvin Gilbert MD. Related to Radiculopathy, [...] was entered by Tasia Hunter, acting as Park Interpreter for Edvin Gilbert MD. Related to Radiculopathy, [...] was entered by Tasia Hunter, acting as Park Interpreter for Edvin Gilbert MD. Related to Radiculopathy, [...] was entered by Holly Mckinney, acting as Park Interpreter for Edvin Gilbert MD. Related to Low [...] was entered by Isamar Gaytan, acting as Park Interpreter for Edvin Gilbert MD. Related to Low [...] request that this study be completed at [facility], at the [facility], or at another quality facility in [place]. I would request that this not be performed at a [facility] facility, the [facility] MRI facility, or the [facility] MRI facility in [place]. This should be an MRI with contrast. He can follow up with me after the completion of the study. I will make no changes in his work restrictions.The medical record documentation of this Provider's service encounter was entered by Holly Mckinney, acting as Park Interpreter for Edvin Gilbert MD Related to Radiculopathy, [...] was entered by Holly Mckinney, acting as Park Interpreter for Edvin Gilbert MD Related to Radiculopathy, [...] was entered by Holly Mckinney, acting as Park Interpreter for Edvin Gilbert MD. Related to Low [...] was entered by Holly Mckinney, acting as Park Interpreter for Edvin Gilbert MD. Related to Other [...] was entered by Holly Mckinney, acting as Park Interpreter for Edvin Gilbert MD. Related to Lumbago [...] was entered by Holly Mckinney, acting as Park Interpreter for Edvin Gilbert MD. Related to Other intervertebral disc displacement, lumbosacral region Assessments Type Assessment Date assessment Fusion of spine, lumbar region J Patient Care Teams Name Effective Dates (start - stop) Status Members No Information
--- OUTSIDE RECORDS SUMMARY | 2025-06-19 10:14 | XMS_ITS | Clinical Summary ---
Author Organization [facility] Care Team Providers Care Spanish Interpreter Name Role Phone Unavailable Primary Care Provider [...] of 3 - 19+ 3-dose series) 1997 Cologuard 2023 Colonoscopy 2023 Colorectal Cancer Screening 2023 Immunochemical Fecal Occult Blood 2023 SARS-COV-2 Immunization ( season) 2024 Influenza Immunization (#1) 2025 Respiratory Syncytial Virus (RSV) Immunization (Adult) (1 - 1-dose 75+ series) 2053 Human Papillomavirus (HPV) Immunization Aged Out No longer eligible b ased on patient's age to complete this topic Meningococcal Immunization (ACWY) Aged Out No longer eligible based on patient's age to complete this topic Pneumococcal Immunization Combined Aged Out No longer eligible based on patient's age to complete this topic Rotavirus Immunization Aged Out No lo nger eligible based on patient's age to complete this topic
--- OUTSIDE RECORDS SUMMARY | 2025-06-19 10:14 | XMS_ITS | Clinical Summary ---
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 Gender Identity Not on file Sexual Orientation [...] 12:09 AM CDT Height 170.2 cm (5' 7) 02/17/2022 4:48 PM CDT Body Mass Index 34.17 02/17/2022 4:48 PM CDT Plan of Treatment Health Maintenance Due Date Last Done Comments DTAP/TDAP/TD VACCINES (1 - Tdap) 1997 HEPATITIS B VACCINES (1 of 3 - 19+ 3-dose series) 04/08 COLORECTAL SCREENING 2023 Colorectal Cancer Screening 2023 FIT-DNA Q 3 years 2023 FIT/FOBT Q 1 year 2023 Flex Sig/CT Colonography Q 5 years 2023 INFLUENZA VACCINE (#1) 2025 Medical Devices Implanted Type Area Director Of Pharmacy Device Identifier Shelf Expiration Date Model / Serial / Lot 8.5-13mm Expandable Tlif [id number] Degrees Implanted:Qty: 1 on 02/17/2022 by Edvin Bernard MD at [facility] Cage Left: Spine Lumbar ZAVATION [id number] 02/16/2022 / [id number] Description:1X ADD XIMENA REQ# [id number] Hemostatic Surgiflo 8ml W/Thrombin 2994 - [id number] Implanted:Qty: 1 on 10/29/2020 by Edvin Bernard MD at [facility] Hemostatic Left: Spine Lumbar [employer] 11/06/2021 2994 / / [id number] Putty Graft I-Factor Peptide Enhanced 5.0ml Syr 700-050 - Sna Implanted:Qty: 1 on 02/17/2022 by Edvin Bernard MD at [facility] Putty Left: Spine Lumbar [employer] 09/06/2024 700-050 / NA / [id number] Description:XIMENA REQ# [id number] 40mm Pre-Lordosed Toño Implanted:Qty: 2 on 02/17/2022 by Edvin Bernard MD at [facility] Toño Left: Spine Lumbar [employer] [id number] / 02/16/2022 / Description:1X ADD Set Screw Nxg Implanted:Qty: 4 on 02/17/2022 by Edvin Bernard MD at [facility] Screw Left: Spine Lumbar [employer] 36-2000 / 02/16/2022 / Description:1X ADD XIMENA REQ# [id number] 7.5mm X 45mm Modular Midline Fixation Screw Implanted:Qty: 4 on 02/17/2022 by Edvin Bernard MD at [facility] Screw Left: Spine Lumbar [employer] 36-5 / 02/16/2022 / Description:1X ADD Body, Top Loading Nxg Implanted:Qty: 4 on 02/17/2022 by Edvin Bernard MD at [facility] Spine Left: Spine Lumbar [employer] 36-2100 / 02/16/2022 / Description:1X ADD Gel Allofuse Dbm 5ml [id number] - Sna Implanted:Qty: 1 on 02/17/2022 by Edvin Bernard MD at [facility] Tissue Left: Spine Lumbar [employer]OSOURCE 03/20/2024 [id number] / NA / [id number] Description: BR Requisition: [id number] Putty Allofuse+ Dbm 5ml [id number] - Sna Implanted:Qty: 1 on 02/17/2022 by Edvin Bernard MD at [facility] Tissue Left: Spine Lumbar ALLOSOURCE 09/19/2023 [id number] / NA / [id number] Description: BR Requisition: [id number] Explanted Type Area Director Of Pharmacy Device Identifier Shelf Expiration Date Model / Serial / Lot Hemostatic Surgiflo 8ml W/ Thrombin 2994 - Sna Explanted:Qty: 1 on 02/17/2022 by Edvin Bernard MD at [facility] Hemostatic Left: Spine Lumbar [employer] 05/06/2023 2994 / NA / [id number] Insurance [place] [employer] RX [employer] Express RX [facility] [employer] Advance Directives For more information, please contact: [phone] * Full Code (Latest Code Status on File) Date Activated Date Inactivated Comments 02/17/2022 4:46 PM 02/18/2022 7:46 PM Care Teams Bench Hand Machine Relationship Specialty Start Date End Date Cathy Dunbar MD [address] [place] [address] PCP - General Internal Medicine 10/17/20
--- NOTE | 2025-06-19 11:15 | NEURO_ITS ---
Impression: # Complains of pain , numbness and nocturnal paresthesia of hands. ? # Bilateral Carpal Tunnel Syndrome, right more than left of moderate degree. ? # No ulnar neuropathy. ? # Normal needle/EMG exam. ? # Clinical correlation recommended. Nerve Conduction Studies ?Stim Site NR Peak (ms) P-T Amp (?V) Site1 Site2 Delta-P (ms) Dist (cm) Aleksander (m/s) Left Median Anti Sensory (2-3nd Digit) Wrist ? 4.6 31.3 Wrist 2-3nd Digit 4.6 14.0 30 Wrist ? 4.8 21.7 Wrist 2-3nd Digit 4.6 14.0 30 Right Median Anti Sensory (2-3nd Digit) Wrist ? 5.6 16.7 Wrist 2-3nd Digit 5.6 14.0 25 Wrist ? 5.6 16.9 Wrist 2-3nd Digit 5.6 14.0 25 Left Radial Anti Sensory (Base 1st Digit) Wrist ? 2.0 16.2 Wrist Base 1st Digit 2.0 0.0 Right Radial Anti Sensory (Base 1st Digit) Wrist ? 2.5 7.5 Wrist Base 1st Digit 2.5 0.0 Left Ulnar Anti Sensory (5th Digit) Wrist ? 2.7 49.8 Wrist 5th Digit 2.7 14.0 52 Right Ulnar Anti Sensory (5th Digit) Wrist ? 2.9 49.8 Wrist 5th Digit 2.9 14.0 48 ?Stim Site NR Onset (ms) O-P Amp (mV) Site1 Site2 Delta-0 (ms) Dist (cm) Aleksander (m/s) Left Median Motor (Abd Poll Brev) Wrist ? 4.6 2.6 Elbow Wrist 5.2 30.0 58 Elbow ? 9.8 1.6 Right Median Motor (Abd Poll Brev) Wrist ? 4.8 3.9 Elbow Wrist 4.9 30.0 61 Elbow ? 9.7 4.4 Left Ulnar Motor (Abd Dig Minimi) Wrist ? 2.5 7.1 A Elbow Wrist 5.2 31.0 60 A Elbow ? 7.7 4.4 B Elbow Wrist 3.8 22.0 58 B Elbow ? 6.3 4.5 Right Ulnar Motor (Abd Dig Minimi) Wrist ? 2.7 6.6 A Elbow Wrist 5.2 31.0 60 A Elbow ? 7.9 5.9 B Elbow Wrist 3.9 23.0 59 B Elbow ? 6.6 5.7 F Wave Studies ?NR F-Lat (ms) L-R F-Lat (ms) Left Median (Mrkrs) (Abd Poll Brev) ? 29.75 0.33 Right Median (Mrkrs) (Abd Poll Brev) ? 30.08 0.33 Left Ulnar (Mrkrs) (Abd Dig Min) ? 28.48 0.00 Right Ulnar (Mrkrs) (Abd Dig Min) ? 28.48 0.00 Electromyography ?Side Muscle Nerve Root Ins Act Fibs Amp Dur Recrt Comment Right 1stDorInt Ulnar C8-T1 Nml Nml Nml Nml Nml Right Ext Indicis Radial (Post Int) C7-8 Nml Nml Nml Nml Nml Right Ext Digitorum Radial (Post Int) C7-8 Nml Nml Nml Nml Nml Right BrachioRad Radial C5-6 Nml Nml Nml Nml Nml Right PronatorTeres Median C6-7 Nml Nml Nml Nml Nml Right Abd Poll Brev Median C8-T1 Nml Nml Nml Nml Nml Right ABD Dig Min Ulnar C8-T1 Nml Nml Nml Nml Nml Right FlexPolLong Median (Ant Int) C7-8 Nml Nml Nml Nml Nml Right Abd Poll Long Radial (Post Int) C7-8 Nml Nml Nml Nml Nml Left 1stDorInt Ulnar C8-T1 Nml Nml Nml Nml Nml Left Ext Indicis Radial (Post Int) C7-8 Nml Nml Nml Nml Nml Left Ext Digitorum Radial (Post Int) C7-8 Nml Nml Nml Nml Nml Left BrachioRad Radial C5-6 Nml Nml Nml Nml Nml Left PronatorTeres Median C6-7 Nml Nml Nml Nml Nml Left Abd Poll Brev Median C8-T1 Nml Nml Nml Nml Nml Left ABD Dig Min Ulnar C8-T1 Nml Nml Nml Nml Nml Left FlexPolLong Median (Ant Int) C7-8 Nml Nml Nml Nml Nml Left Abd Poll Long Radial (Post Int) C7-8 Nml Nml Nml Nml Nml ?
== END 2025-06-19 10:00 | disposition home or self-care (01) ==
PROVIDERS: PCP Internal Medicine; Visit Provider Internal Medicine
DX: G56.03 Carpal tunnel syndrome, bilateral upper limbs (principal); M18.11 Unilateral primary osteoarthritis of first carpometacarpal joint, right hand
CPT/HCPCS: 73130; 95886; 95911

== ENCOUNTER 2025-08-12 16:18 | Emergency (ER) | payer OTHER, SELFPAY ==
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
--- OUTSIDE RECORDS SUMMARY | 2025-08-12 16:22 | XMS_ITS | Clinical Summary ---
Author Organization [facility] Care Team Providers Care Boots And Shoes Supervisor Name Role Phone Unavailable Primary Care [...] Screening 2023 Immunochemical Fecal Occult Blood 2023 Influenza Immunization (#1) 2025 SARS-COV-2 Immunization ( season) 2025 Respiratory Syncytial Virus (RSV) Immunization (Adult) [...]
--- OUTSIDE RECORDS SUMMARY | 2025-08-12 16:22 | XMS_ITS | Clinical Summary ---
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 Gender Identity Not on file Sexual Orientation [...] (#1) 2025 Medical Devices Implanted Type Area Bonus Clerk Device Identifier Shelf Expiration Date Model / Serial / Lot 8.5-13mm Expandable Tlif [id number] Degrees Implanted:Qty: 1 on 02/17/2022 by Edvin Bernard MD at [facility] Cage Left: Spine Lumbar ZAVATION [id number] 02/16/2022 / [id number] Description:1X ADD XIMENA REQ# [id number] Hemostatic Surgiflo 8ml W/Thrombin 2994 - [id number] Implanted:Qty: 1 on 10/29/2020 by Edvin Bernard MD at [facility] Hemostatic Left: Spine Lumbar [employer] 11/06/2021 2994 / / [id number] Putty Graft I-Factor Peptide Enhanced 5.0ml Syr 700-050 - Sna Implanted:Qty: 1 on 02/17/2022 by Edvin Bernard MD at [facility] Putty Left: Spine Lumbar [employer] 09/06/2024 700-050 / NA / [id number] Description:XIMENA REQ# [id number] 40mm Pre-Lordosed Toño Implanted:Qty: 2 on 02/17/2022 by Edvin Bernard MD at [facility] Toño Left: Spine Lumbar [employer] 52-6040 / 02/16/2022 / Description:1X ADD Set Screw Nxg Implanted:Qty: 4 on 02/17/2022 by Edvin Bernard MD at [facility] Screw Left: Spine Lumbar [employer] 36-2000 / 02/16/2022 / Description:1X ADD XIMENA REQ# [id number] 7.5mm X 45mm Modular Midline Fixation Screw Implanted:Qty: 4 on 02/17/2022 by Edvin Bernard MD at [facility] Screw Left: Spine Lumbar [employer] 36-5 / 02/16/2022 / Description:1X ADD Body, Top Loading Nxg Implanted:Qty: 4 on 02/17/2022 by Edvin Bernard MD at [facility] Spine Left: Spine Lumbar [employer] 36-2100 / 02/16/2022 / Description:1X ADD Gel Allofuse Dbm 5ml [id number] - Sna Implanted:Qty: 1 on 02/17/2022 by Edvin Bernard MD at [facility] Tissue Left: Spine Lumbar [employer]OURCE 03/20/2024 [id number] / NA / [id number] Description: BR Requisition: [id number] Putty Allofuse+ Dbm 5ml [id number] - Sna Implanted:Qty: 1 on 02/17/2022 by Edvin Bernard MD at [facility] Tissue Left: Spine Lumbar [employer]OURCE 09/19/2023 [id number] / NA / [id number] Description: BR Requisition: [id number] Explanted Type Area Bonus Clerk Device Identifier Shelf Expiration Date Model / Serial / Lot Hemostatic Surgiflo 8ml W/ Thrombin 2994 - Sna Explanted:Qty: 1 on 02/17/2022 by Edvin Bernard MD at [facility] Hemostatic Left: Spine Lumbar [employer] 05/06/2023 2994 / NA / [id number] Insurance [place] [employer] [place] RX [employer] Express RX [facility] [employer] Advance Directives For more information, please contact: [phone] * Full Code (Latest Code Status on File) Date Activated Date Inactivated Comments 02/17/2022 4:46 PM 02/18/2022 7:46 PM Care Teams Staff Internist Office Based Only Relationship Specialty Start Date End Date Cathy Dunbar MD [address] [place] [address] PCP - General Internal Medicine 10/17/20
[2025-08-12 16:37] VITALS: BP 152/97; PULSE 71; RESP 16; TEMP 36.7; O2SAT 100
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
[2025-08-12 19:48] VITALS: BP 147/84; PULSE 65; RESP 16; TEMP 36.4; O2SAT 99
--- OUTSIDE RECORDS SUMMARY | 2025-08-12 20:08 | XMS_ITS | Clinical Summary ---
Author Organization [facility] Care Team Providers Care Scrap Baller Name Role Phone Unavailable Primary Care Provider [...]
--- OUTSIDE RECORDS SUMMARY | 2025-08-12 20:08 | XMS_ITS | Data Portability ---
Author Organization [facility] Address [address] [place] [address] Care Team Providers Care Indirect Sales Representative Name Role Phone JOCY LINARES Primary Care Provider Assessment Encounter Date Assessment Date Assessment LastModified [...] months he may go back to work [email or web address] Not available 10/20/2024 12:37:46 04/18/2025 04/18/2025 Continue blood pressure medicine check other labs last creatinine was 1.49 CBC CMP lipid ESR CRP rheumatoid factor and ALIREZA nerve conduction studies of of the upper extremities as well as x-ray of the hands. Colonoscopy. Follow up 4 months [email or web address] Not available 04/18/2025 22:32:34 Plan of Treatment Reminders Order Date Submit Date Provider Last Modified By Organization Details Last Modified Time Details Appointments ANY 15 2024 03:15P Vaishnavi Linares MD Not available Not available Not available Lab ESR (erythr ocyte sedimen tation rate), blood 2024 06 025 [facility], [address], [address], [place], [address], 07/20/2025 09:08:20 C reactiv e protein , QN, serum or plasma 2024 025 RUPERTO GRANT, [address], [address], [place], [address], 07/20/2025 09:08:21 ALIREZA (antinu clear antibod ies) screen, serum 2024 025 RUPERTO GRANT, [address], [address], [place], [address], 07/20/2025 09:08:18 rf (rheuma toid factor) , serum 2024 025 RUPERTO GRANT, [address], [address], [place], [address], 07/20/2025 09:08:21 lipid panel, serum 2024 025 RUPERTO GRANT, [address], [address], [place], [address], 07/20/2025 09:08:19 CBC w/ auto diff 2024 025 [facility]ERTO GRANT, [address] [facility] [address], [address], [place], [address], 07/20/2025 09:08:20 CMP, serum or plasma 2024 025 RUPERTO GRANT, [address] [facility] [address], [address], [place], [address], 07/20/2025 09:08:19 PSA, total, serum or plasma 2023 024 RUPERTO GRANT, [address], [address], [place], [address], 10/25/2024 10:14:24 lipid panel, serum 2023 024 [facility], [address] [place] [address], [address], [place], [address], 10/25/2024 10:14:15 CBC w/ auto diff 2023 024 [facility], [address] [place] [address], [address], [place], [address], 10/25/2024 10:14:22 CMP, serum or plasma 2023 024 [facility], [address] [place] [address], [address], [place], [address], 10/25/2024 10:14:17 urinaly sis, dipstic k, reflex micro 2023 024 [facility], [address] [place] [address], [address], [place], [address], 10/25/2024 10:14:20 Referral physica l therapi st referra l 2022 023 [facility], [address], [place], [address], 10/27/2023 16:09:31 gastroe nterolo gist referra l - Please call patient for appoint ment, thanks! 2022 023 [facility] Devon Tejada MD, [address], [address], [place], [address], 10/27/2023 16:09:31 Procedures nerve conduct ion study (ncs) (PROC) - NCS B/L arms 2024 025 [facility]), [address], [place], [address], 06/19/2025 16:03:39 colonos copy screeni ng (PROC) 2024 025 [facility] - Gastroenterol ogy, [address], [address], [place], [address], 07/26/2025 14:58:08 Surgeries None recorde d. Imaging electro cardiog marifer 2023 024 [email or web address] In-Office Order, Internal Use Only DO Not Attach Compendium DO Not Attach Compendium, Do Not Delete/merge, [id number] 10/19/2024 13:34:55 Medication Orders losarta n 100 mg-hydr ochloro thiazid e 12.5 mg tablet 2024 025 [facility], [address], [place], [place], [id number], 04/18/2025 20:38:04 losarta n 100 mg-hydr ochloro thiazid e 12.5 mg tablet 2022 023 [email or web address], [address], [place], [place], [id number], 03/08/2023 13:06:35 losarta n 100 mg-hydr ochloro thiazid e 12.5 mg tablet 2022 023 [email or web address], [address], [place], [place], [id number], 12/10/2022 12:01:27 losarta n 100 mg-hydr ochloro thiazid e 12.5 mg tablet 2021 022 [email or web address], [address] , [place], [place], [id number], 04/23/2022 18:03:29 metopro lol succina te ER 50 mg tablet, extende d release 24 hr 2021 022 [facility], [address], [place], [place], [id number], 12/10/2022 11:49:23 Patient TargetsNo targets recorded. Patient Instructions Encounter Date Encounter Id Patient Instructions Last Modified By Organization Details Last Modified Time 04/23/2022 [id number] learning about high blood pressure [facility] Not available 04/23/2022 18:03:24 12/10/2022 [id number] influenza (flu) vaccine: care instructions [facility] Not available 12/10/2022 12:01:18 A healthy lifestyle: care instructions [facility] Not available 12/10/2022 12:01:19 learning about high blood pressure [facility] Not available 12/10/2022 12:01:19 03/08/2023 [id number] A healthy lifestyle: care instructions [facility] Not available 03/08/2023 13:06:30 learning about high blood pressure [facility] Not available 03/08/2023 13:06:30 04/18/2025 [id number] A healthy lifestyle: care instructions [email or web address] Not available 04/18/2025 14:54:14 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 Referring Physician: Cathy Dunbar, Internal Medicine, Encounter Date: 12/10/2022 Physical Therapist Referral for Chronic low back pain Referring Physician: Cathy Dunbar, Internal Medicine, Encounter Date: 03/08/2023 Results Created Date Observation Date Name Description Value Unit Range Abnormal Flag Note LastModifiedBy Organization Detail LastModifiedTime 10/24/2010/25/2024 LIPID PANEL cholesterol, total 202 mg/dL 100-19 9 above high normal Not Available [facility] ([facility]) [address], [place], [address], 10/25/2024 10:14:15 10/24/20 24 10/25/2024 LIPID PANEL triglyceride s 156 mg/dL 0-149 above high normal Not Available [facility] ([facility]) [address] [facility] [address], [place], [address], 10/25/2024 10:14:15 10/24/20 24 10/25/2024 LIPID PANEL HDL cholesterol 34 mg/dL >39 below low normal Not Available [facility] ([facility]) [address] [place], [address], 10/25/2024 10:14:15 10/24/20 24 10/25/2024 LIPID PANEL VLDL cholesterol luke 28 mg/dL 5-40 Not Available [facility] ([facility]) [address] [place], [address], 10/25/2024 10:14:15 10/24/20 24 10/25/2024 LIPID PANEL LDL chol calc ([facility]) 140 mg/dL 0-99 above high normal Not Available [facility] ([facility]) [address] [place], [address], 10/25/2024 10:14:15 10/24/20 24 10/25/2024 COMP. METAB OLIC PANEL (14) glucose 98 mg/dL 70-99 Not Available [facility] ([facility]) [address] [place], [address], 10/25/2024 10:14:17 10/24/20 24 10/25/2024 COMP. METAB OLIC PANEL (14) BUN 15 mg/dL 6-24 Not Available [facility] ([facility]) [address] [place], [address], 10/25/2024 10:14:17 10/24/20 24 10/25/2024 COMP. METAB OLIC PANEL (14) creatinine 1.49 mg/dL 0.76-1 .27 above high normal Not Available [facility] ([facility]) [address] [place], [address], 10/25/2024 10:14:17 10/24/20 24 10/25/2024 COMP. METAB OLIC PANEL (14) eGFR 58 mL/mi n/1.7 3 >59 below low normal Not Available [facility] ([facility]) [address] [facility], [place], [address], 10/25/2024 10:14:17 10/24/20 24 10/25/2024 COMP. METAB OLIC PANEL (14) BUN/creatini ne ratio 10 9-20 Not Available [facility] ([facility]) [address] [facility] [address], [place], [address], 10/25/2024 10:14:17 10/24/20 24 10/25/2024 COMP. METAB OLIC PANEL (14) sodium 139 mmol/ L 134-14 4 Not Available [facility] ([facility]) [address] [facility], [place], [address], 10/25/2024 10:14:17 10/24/20 24 10/25/2024 COMP. METAB OLIC PANEL (14) potassium 4.7 mmol/ L 3.5-5. 2 Not Available [facility] ([facility]) [address] [facility], [place], [address], 10/25/2024 10:14:17 10/24/20 24 10/25/2024 COMP. METAB OLIC PANEL (14) chloride 98 mmol/ L 96-106 Not Available [facility] ([facility]) [address] [facility] [address], [place], [address], 10/25/2024 10:14:17 10/24/20 24 10/25/2024 COMP. METAB OLIC PANEL (14) carbon dioxide, total 23 mmol/ L 20-29 Not Available [facility] ([facility]) [address] [place], [address], 10/25/2024 10:14:17 10/24/20 24 10/25/2024 COMP. METAB OLIC PANEL (14) calcium 9.8 mg/dL 8.7-10 .2 Not Available [facility] ([facility]) [address] [place], [address], 10/25/2024 10:14:17 10/24/20 24 10/25/2024 COMP. METAB OLIC PANEL (14) protein, total 8.9 g/dL 6.0-8. 5 above high normal Not Available [facility] ([facility]) [address] [facility] [address], [place], [address], 10/25/2024 10:14:17 10/24/20 24 10/25/2024 COMP. METAB OLIC PANEL (14) albumin 4.5 g/dL 4.1-5. 1 Not Available [facility] ([facility]) [address] [facility] [address], [place], [address], 10/25/2024 10:14:17 10/24/20 24 10/25/2024 COMP. METAB OLIC PANEL (14) globulin, total 4.4 g/dL 1.5-4. 5 Not Available [facility] ([facility]) [address] [facility] [address], [place], [address], 10/25/2024 10:14:17 10/24/20 24 10/25/2024 COMP. METAB OLIC PANEL (14) bilirubin, total 1.1 mg/dL 0.0-1. 2 Not Available [facility] ([facility]) [address] [facility] [address], [place], [address], 10/25/2024 10:14:17 10/24/20 24 10/25/2024 COMP. METAB OLIC PANEL (14) alkaline phosphatase 73 IU/L 44-121 Not Available [facility] ([facility]) [address] [facility] [address], [place], [address], 10/25/2024 10:14:17 10/24/20 24 10/25/2024 COMP. METAB OLIC PANEL (14) AST (SGOT) 31 IU/L 0-40 Not Available [facility] ([facility]) [address] [facility] [address], [place], [address], 10/25/2024 10:14:17 10/24/20 24 10/25/2024 COMP. METAB OLIC PANEL (14) ALT (SGPT) 17 IU/L 0-44 Not Available [facility] ([facility]) [address] [facility], [place], [address], 10/25/2024 10:14:17 10/24/20 24 10/25/2024 MICRO SCOPI C EXAMI NATIO N WBC None seen /hpf 0-5 Not Available [facility] ([facility]) [address] [facility], [place], [address], 10/25/2024 10:14:19 10/24/20 24 10/25/2024 MICRO SCOPI C EXAMI NATIO N RBC 0-2 /hpf 0-2 Not Available [facility] ([facility]) [address] [facility], [place], [address], 10/25/2024 10:14:19 10/24/20 24 10/25/2024 MICRO SCOPI C EXAMI NATIO N epithelial cells (non renal) None seen /hpf 0-10 Not Available [facility] ([facility]) [address] [facility], [place], [address], 10/25/2024 10:14:19 10/24/20 24 10/25/2024 MICRO SCOPI C EXAMI NATIO N casts None seen /lpf nonese en Not Available [facility] ([facility]) [address] [facility], [place], [address], 10/25/2024 10:14:19 10/24/20 24 10/25/2024 MICRO SCOPI C EXAMI NATIO N bacteria None seen nonese en/few Not Available [facility] ([facility]) [address] [facility], [place], [address], 10/25/2024 10:14:19 10/24/20 24 10/25/2024 URINA LYSIS , ROUTI NE W/RFX specific gravity >=1.03 0 1.005- 1.030 abnormal Not Available [facility] ([facility]) [address] [facility] [address], [place], [address], 10/25/2024 10:14:20 10/24/20 24 10/25/2024 URINA LYSIS , ROUTI NE W/RFX pH 5.5 5.0-7. 5 Not Available [facility] ([facility]) [address] [facility], [place], [address], 10/25/2024 10:14:20 10/24/20 24 10/25/2024 URINA LYSIS , ROUTI NE W/RFX urine-color YELLOW yellow Not Available [facility] ([facility]) [address] [facility], [place], [address], 10/25/2024 10:14:20 10/24/20 24 10/25/2024 URINA LYSIS , ROUTI NE W/RFX appearance CLEAR clear Not Available [facility] ([facility]) [address] [facility], [place], [address], 10/25/2024 10:14:20 10/24/20 24 10/25/2024 URINA LYSIS , ROUTI NE W/RFX WBC esterase NEGATI VE negati ve Not Available [facility] ([facility]) [address] [place], [address], 10/25/2024 10:14:20 10/24/20 24 10/25/2024 URINA LYSIS , ROUTI NE W/RFX protein 1+ negati ve/tra ce abnormal Not Available [facility] ([facility]) [address] [place], [address], 10/25/2024 10:14:20 10/24/20 24 10/25/2024 URINA LYSIS , ROUTI NE W/RFX glucose NEGATI VE negati ve Not Available [facility] ([facility]) [address] [place], [address], 10/25/2024 10:14:20 10/24/20 24 10/25/2024 URINA LYSIS , ROUTI NE W/RFX ketones TRACE negati ve abnormal Not Available [facility] ([facility]) [address] [facility], [place], [address], 10/25/2024 10:14:20 10/24/20 24 10/25/2024 URINA LYSIS , ROUTI NE W/RFX occult blood NEGATI VE negati ve Not Available [facility] ([facility]) [address] [facility], [place], [address], 10/25/2024 10:14:20 10/24/20 24 10/25/2024 URINA LYSIS , ROUTI NE W/RFX bilirubin NEGATI VE negati ve Not Available [facility] ([facility]) [address] [place], [address], 10/25/2024 10:14:20 10/24/20 24 10/25/2024 URINA LYSIS , ROUTI NE W/RFX urobilinogen ,semi-qn 0.2 mg/dL 0.2-1. 0 Not Available [facility] ([facility]) [address] [facility], [place], [address], 10/25/2024 10:14:20 10/24/20 24 10/25/2024 URINA LYSIS , ROUTI NE W/RFX nitrite, urine NEGATI VE negati ve Not Available [facility] ([facility]) [address] [place], [address], 10/25/2024 10:14:20 10/24/20 24 10/25/2024 URINA LYSIS , ROUTI NE W/RFX microscopic examination SEE BELOW: Micro scopi c was indic ated and was perfo rmed. Not Available [facility] ([facility]) [address] [place], [address], 10/25/2024 10:14:20 10/24/20 24 10/24/2024 CBC WITH DIFFE RENTI AL/PL ATELE T WBC 6.2 x10e3 /uL 3.4-10 .8 Not Available [facility] ([facility]) [address] [facility], [place], [address], 10/25/2024 10:14:22 10/24/20 24 10/24/2024 CBC WITH DIFFE RENTI AL/PL ATELE T RBC 4.70 x10e6 /uL 4.14-5 .80 Not Available [facility] ([facility]) [address] [facility], [place], [address], 10/25/2024 10:14:22 10/24/20 24 10/24/2024 CBC WITH DIFFE RENTI AL/PL ATELE T hemoglobin 14.3 g/dL 13.0-1 7.7 Not Available [facility] ([facility]) [address] [facility], [place], [address], 10/25/2024 10:14:22 10/24/20 24 10/24/2024 CBC WITH DIFFE RENTI AL/PL ATELE T hematocrit 43.1 % 37.5-5 1.0 Not Available [facility] ([facility]) [address] [facility], [place], [address], 10/25/2024 10:14:22 10/24/20 24 10/24/2024 CBC WITH DIFFE RENTI AL/PL ATELE T MCV 92 fL 79-97 Not Available [facility] ([facility]) [address] [facility], [place], [address], 10/25/2024 10:14:22 10/24/20 24 10/24/2024 CBC WITH DIFFE RENTI AL/PL ATELE T MCH 30.4 pg 26.6-3 3.0 Not Available [facility] ([facility]) [address] [facility], [place], [address], 10/25/2024 10:14:22 12/18/20 24 10/24/2024 CBC WITH DIFFE RENTI AL/PL ATELE T MCHC 33.2 g/dL 31.5-3 5.7 Not Available [facility] ([facility]) [address] [facility], [place], [address], 10/25/2024 10:14:22 10/24/20 24 10/24/2024 CBC WITH DIFFE RENTI AL/PL ATELE T RDW 14.1 % 11.6-1 5.4 Not Available [facility] ([facility]) [address] [facility], [place], [address], 10/25/2024 10:14:22 10/24/20 24 10/24/2024 CBC WITH DIFFE RENTI AL/PL ATELE T platelets 373 x10e3 /uL 150-45 0 Not Available [facility] ([facility]) [address] [facility], [place], [address], 10/25/2024 10:14:22 10/24/20 24 10/24/2024 CBC WITH DIFFE RENTI AL/PL ATELE T neutrophils 43 % notest ab. Not Available [facility] ([facility]) [address] [facility], [place], [address], 10/25/2024 10:14:22 10/24/20 24 10/24/2024 CBC WITH DIFFE RENTI AL/PL ATELE T lymphs 44 % notest ab. Not Available [facility] ([facility]) [address] [facility], [place], [address], 10/25/2024 10:14:22 10/24/20 24 10/24/2024 CBC WITH DIFFE RENTI AL/PL ATELE T monocytes 10 % notest ab. Not Available [facility] ([facility]) [address] [facility], [place], [address], 10/25/2024 10:14:22 10/24/20 24 10/24/2024 CBC WITH DIFFE RENTI AL/PL ATELE T eos 2 % notest ab. Not Available [facility] ([facility]) [address] [facility], [place], [address], 10/25/2024 10:14:22 10/24/20 24 10/24/2024 CBC WITH DIFFE RENTI AL/PL ATELE T basos 1 % notest ab. Not Available [facility] ([facility]) [address] [facility], [place], [address], 10/25/2024 10:14:22 10/24/20 24 10/24/2024 CBC WITH DIFFE RENTI AL/PL ATELE T neutrophils (absolute) 2.7 x10e3 /uL 1.4-7. 0 Not Available [facility] ([facility]) [address] [facility], [place], [address], 10/25/2024 10:14:22 10/24/20 24 10/24/2024 CBC WITH DIFFE RENTI AL/PL ATELE T lymphs (absolute) 2.7 x10e3 /uL 0.7-3. 1 Not Available [facility] ([facility]) [address] [facility], [place], [address], 10/25/2024 10:14:22 10/24/20 24 10/24/2024 CBC WITH DIFFE RENTI AL/PL ATELE T monocytes(ab solute) 0.6 x10e3 /uL 0.1-0. 9 Not Available [facility] ([facility]) [address] [facility], [place], [address], 10/25/2024 10:14:22 10/24/20 24 10/24/2024 CBC WITH DIFFE RENTI AL/PL ATELE T eos (absolute) 0.1 x10e3 /uL 0.0-0. 4 Not Available [facility] ([facility]) [address] [place], [address], 10/25/2024 10:14:22 10/24/20 24 10/24/2024 CBC WITH DIFFE RENTI AL/PL ATELE T baso (absolute) 0.0 x10e3 /uL 0.0-0. 2 Not Available [facility] ([facility]) [address] [facility], [place], [address], 10/25/2024 10:14:22 10/24/20 24 10/24/2024 CBC WITH DIFFE RENTI AL/PL ATELE T immature granulocytes 0 % notest ab. Not Available [facility] ([facility]) [address] [facility], [place], [address], 10/25/2024 10:14:22 10/24/20 24 10/24/2024 CBC WITH DIFFE RENTI AL/PL ATELE T immature grans (abs) 0.0 x10e3 /uL 0.0-0. 1 Not Available [facility] ([facility]) [address] [facility], [place], [address], 10/25/2024 10:14:22 10/24/20 24 10/25/2024 PROST ATE-S [...] t be inter prete d as absol [place] ev[place] nce of the prese nce or absen ce of [facility] dise se. Not Available [facility] ([facility]) [address] [facility], [place], [address], 10/25/2024 10:14:23 07/18/2007/20/2025 ALIREZA W/REF JULIA ALIREZA direct NEGATI VE negati ve Not Available [facility] ([facility]) [address] [place], [address], 07/20/2025 09:08:18 07/18/20 25 07/19/2025 LIPID PANEL cholesterol, total 212 mg/dL 100-19 9 above high normal Not Available [facility] ([facility]) [address] [place], [address], 07/20/2025 09:08:19 07/18/2007/19/2025 LIPID PANEL triglyceride s 199 mg/dL 0-149 above high normal Not Available [facility] ([facility]) [address] [place], [address], 07/20/2025 09:08:19 07/18/20 25 07/19/2025 LIPID PANEL HDL cholesterol 34 mg/dL >39 below low normal Not Available [facility] ([facility]) [address] [place], [address], 07/20/2025 09:08:19 07/18/20 25 07/19/2025 LIPID PANEL VLDL cholesterol luke 36 mg/dL 5-40 Not Available [facility] ([facility]) [address] [place], [address], 07/20/2025 09:08:19 07/18/2007/19/2025 LIPID PANEL LDL chol calc ([facility]) 142 mg/dL 0-99 above high normal Not Available [facility] ([facility]) [address] [place], [address], 07/20/2025 09:08:19 07/18/20 25 07/19/2025 COMP. METAB OLIC PANEL (14) glucose 82 mg/dL 70-99 Not Available [facility] ([facility]) [address] [place], [address], 07/20/2025 09:08:19 07/18/20 25 07/19/2025 COMP. METAB OLIC PANEL (14) BUN 16 mg/dL 6-24 Not Available [facility] ([facility]) [address] [place], [address], 07/20/2025 09:08:19 07/18/20 25 07/19/2025 COMP. METAB OLIC PANEL (14) creatinine 1.58 mg/dL 0.76-1 .27 above high normal Not Available [facility] ([facility]) [address] [place], [address], 07/20/2025 09:08:19 07/18/20 25 07/19/2025 COMP. METAB OLIC PANEL (14) eGFR 54 mL/mi n/1.7 3 >59 below low normal Not Available [facility] ([facility]) [address] [place], [address], 07/20/2025 09:08:19 07/18/20 25 07/19/2025 COMP. METAB OLIC PANEL (14) BUN/creatini ne ratio 10 9-20 Not Available [facility] ([facility]) [address] [place], [address], 07/20/2025 09:08:19 07/18/20 25 07/19/2025 COMP. METAB OLIC PANEL (14) sodium 141 mmol/ L 134-14 4 Not Available [facility] ([facility]) [address] [place], [address], 07/20/2025 09:08:19 07/18/20 25 07/19/2025 COMP. METAB OLIC PANEL (14) potassium 3.8 mmol/ L 3.5-5. 2 Not Available [facility] ([facility]) [address] [place], [address], 07/20/2025 09:08:19 07/18/2007/19/2025 COMP. METAB OLIC PANEL (14) chloride 102 mmol/ L 96-106 Not Available [facility] ([facility]) [address] [facility] [place], [address], 07/20/2025 09:08:19 07/18/2007/19/2025 COMP. METAB OLIC PANEL (14) carbon dioxide, total 24 mmol/ L 20-29 Not Available [facility] ([facility]) [address] [facility], [place], [address], 07/20/2025 09:08:19 07/18/2007/19/2025 COMP. METAB OLIC PANEL (14) calcium 9.9 mg/dL 8.7-10 .2 Not Available [facility] ([facility]) [address] [facility], [place], [address], 07/20/2025 09:08:19 07/18/2007/19/2025 COMP. METAB OLIC PANEL (14) protein, total 8.2 g/dL 6.0-8. 5 Not Available [facility] ([facility]) [address] [place], [address], 07/20/2025 09:08:19 07/18/2007/19/2025 COMP. METAB OLIC PANEL (14) albumin 4.6 g/dL 4.1-5. 1 Not Available [facility] ([facility]) [address] [place], [address], 07/20/2025 09:08:19 07/18/2007/19/2025 COMP. METAB OLIC PANEL (14) globulin, total 3.6 g/dL 1.5-4. 5 Not Available [facility] [facility]) [address] [place], [address], 07/20/2025 09:08:19 07/18/2007/19/2025 COMP. METAB OLIC PANEL (14) bilirubin, total 1.2 mg/dL 0.0-1. 2 Not Available [facility] ([facility]) [address] [place], [address], 07/20/2025 09:08:19 07/18/20 25 07/19/2025 COMP. METAB OLIC PANEL (14) alkaline phosphatase 62 IU/L 44-121 Eff ectiv e Septe mber 2024 Alkal ine Phosp hatas e refer ence inter shade will be fishman ing to: Age Male Femal e 0 - 5 days 47 - 127 47 - 127 6 - 10 days 29 - 242 29 - 242 11 - 20 days 109 - 357 109 - 357 21 - 30 days 94 - 494 94 - 494 1 - 2 month s 149 - 539 149 - 539 3 - 6 month s 131 - 452 131 - 452 7 - 11 month s 117 - 401 117 - 401 12 month s - 6 years 158 - 369 158 - 369 7 - 12 years 150 - 409 150 - 409 13 years 156 - 435 78 - 227 14 years 114 - 375 64 - 161 15 years 88 - 279 56 - 134 16 years 74 - 207 51 - 121 17 years 63 - 161 47 - 113 18 - 20 years 51 - 125 42 - 106 21 - 50 years 47 - 123 41 - 116 51 - 80 years 49 - 135 51 - 125 >80 years 48 - 129 48 - 129 Not Available [facility] ([facility]) [address] [place], [address], 07/20/2025 09:08:19 07/18/20 25 07/19/2025 COMP. METAB OLIC PANEL (14) AST (SGOT) 25 IU/L 0-40 Not Available [facility] ([facility]) [address] [place], [address], 07/20/2025 09:08:19 07/18/20 25 07/19/2025 COMP. METAB OLIC PANEL (14) ALT (SGPT) 20 IU/L 0-44 Not Available [facility] ([facility]) [address] [place], [address], 07/20/2025 09:08:19 07/18/20 25 07/19/2025 CBC WITH DIFFE RENTI AL/PL ATELE T WBC 7.1 x10e3 /uL 3.4-10 .8 Not Available [facility] ([facility]) [address] [facility], [place], [address], 07/20/2025 09:08:20 07/18/2007/19/2025 CBC WITH DIFFE RENTI AL/PL ATELE T RBC 4.67 x10e6 /uL 4.14-5 .80 Not Available [facility] ([facility]) [address] [facility], [place], [address], 07/20/2025 09:08:20 07/18/2007/19/2025 CBC WITH DIFFE RENTI AL/PL ATELE T hemoglobin 13.7 g/dL 13.0-1 7.7 Not Available [facility] ([facility]) [address] [facility], [place], [address], 07/20/2025 09:08:20 07/18/2007/19/2025 CBC WITH DIFFE RENTI AL/PL ATELE T hematocrit 42.7 % 37.5-5 1.0 Not Available [facility] ([facility]) [address] [facility], [place], [address], 07/20/2025 09:08:20 07/18/2007/19/2025 CBC WITH DIFFE RENTI AL/PL ATELE T MCV 91 fL 79-97 Not Available [facility] ([facility]) [address] [place], [address], 07/20/2025 09:08:20 07/18/2007/19/2025 CBC WITH DIFFE RENTI AL/PL ATELE T MCH 29.3 pg 26.6-3 3.0 Not Available [facility] ([facility]) [address] [place], [address], 07/20/2025 09:08:20 07/18/20 25 07/19/2025 CBC WITH DIFFE RENTI AL/PL ATELE T MCHC 32.1 g/dL 31.5-3 5.7 Not Available [facility] ([facility]) [address] [facility], [place], [address], 07/20/2025 09:08:20 07/18/20 25 07/19/2025 CBC WITH DIFFE RENTI AL/PL ATELE T RDW 13.6 % 11.6-1 5.4 Not Available [facility] ([facility]) [address] [facility], [place], [address], 07/20/2025 09:08:20 07/18/20 25 07/19/2025 CBC WITH DIFFE RENTI AL/PL ATELE T platelets 362 x10e3 /uL 150-45 0 Not Available [facility] ([facility]) [address] [facility], [place], [address], 07/20/2025 09:08:20 07/18/20 25 07/19/2025 CBC WITH DIFFE RENTI AL/PL ATELE T neutrophils 48 % notest ab. Not Available [facility] ([facility]) [address] [facility], [place], [address], 07/20/2025 09:08:20 07/18/2007/19/2025 CBC WITH DIFFE RENTI AL/PL ATELE T lymphs 41 % notest ab. Not Available [facility] ([facility]) [address] [facility], [place], [address], 07/20/2025 09:08:20 07/18/20 25 07/19/2025 CBC WITH DIFFE RENTI AL/PL ATELE T monocytes 9 % notest ab. Not Available [facility] ([facility]) [address] [facility], [place], [address], 07/20/2025 09:08:20 07/18/2007/19/2025 CBC WITH DIFFE RENTI AL/PL ATELE T eos 1 % notest ab. Not Available [facility] ([facility]) [address] [facility], [place], [address], 07/20/2025 09:08:20 07/18/2007/19/2025 CBC WITH DIFFE RENTI AL/PL ATELE T basos 1 % notest ab. Not Available [facility] ([facility]) [address] [facility], [place], [address], 07/20/2025 09:08:20 07/18/2007/19/2025 CBC WITH DIFFE RENTI AL/PL ATELE T neutrophils (absolute) 3.4 x10e3 /uL 1.4-7. 0 Not Available [facility] ([facility]) [address] [place], [address], 07/20/2025 09:08:20 07/18/2007/19/2025 CBC WITH DIFFE RENTI AL/PL ATELE T lymphs (absolute) 2.9 x10e3 /uL 0.7-3. 1 Not Available [facility] ([facility]) [address] [place], [address], 07/20/2025 09:08:20 07/18/2007/19/2025 CBC WITH DIFFE RENTI AL/PL ATELE T monocytes(ab solute) 0.6 x10e3 /uL 0.1-0. 9 Not Available [facility] ([facility]) [address] [place], [address], 07/20/2025 09:08:20 07/18/2007/19/2025 CBC WITH DIFFE RENTI AL/PL ATELE T eos (absolute) 0.1 x10e3 /uL 0.0-0. 4 Not Available [facility] ([facility]) [address] [place], [address], 07/20/2025 09:08:20 07/18/20 25 07/19/2025 CBC WITH DIFFE RENTI AL/PL ATELE T baso (absolute) 0.1 x10e3 /uL 0.0-0. 2 Not Available [facility] ([facility]) [address] [facility] [place], [address], 07/20/2025 09:08:20 07/18/20 25 07/19/2025 CBC WITH DIFFE RENTI AL/PL ATELE T immature granulocytes 0 % notest ab. Not Available [facility] ([facility]) [address] [facility] [place], [address], 07/20/2025 09:08:20 07/18/20 25 07/19/2025 CBC WITH DIFFE RENTI AL/PL ATELE T immature grans (abs) 0.0 x10e3 /uL 0.0-0. 1 Not Available [facility] ([facility]) [address] [facility], [place], [address], 07/20/2025 09:08:20 07/18/20 25 07/19/2025 SEDIM ENTAT ION RATE- WESTE RGREN sedimentatio n rate-westerg fely 38 mm/HR 0-15 above high normal Not Available [facility] ([facility]) [address] [place], [address], 07/20/2025 09:08:20 07/18/2007/19/2025 RHEUM ATOID FACTO R (RF) rheumatoid factor (rf) 57.6 IU/mL <14.0 above high normal Not Available [facility] ([facility]) [address] [place], [address], 07/20/2025 09:08:21 07/18/20 25 07/19/2025 C-ALIN CTIVE PROTE IN, QUANT C-reactive protein, quant 4 mg/L 0-10 Not Available [facility] ([facility]) [address] [place], [address], 07/20/2025 09:08:21 10/19/20 24 elect rocar diogr am No observ ation record ed. RUPERTO In-Office Order Internal Use Only DO Not Attach Compendium DO Not Attach Compendium, Do Not Delete/merge, [id number] 10/19/2024 13:14:37 10/19/20 24 10/19/2024 elect rocar diogr am No observ ation record ed. RUPERTO In-Office Order Internal Use Only DO Not Attach Compendium DO Not Attach Compendium, Do Not Delete/merge, [id number] 10/19/2024 13:20:52 06/19/20 25 06/19/2025 XR, hand No observ ation record ed. [address] [facility], [place], [address], 06/25/2025 15:52:15 06/19/20 25 06/19/2025 nerve condu ction study (ncs) (PROC ) No observ ation record ed. [address], [place], [address], 06/25/2025 15:51:38 Result Notes None recorded. Problems Name Problem SNOMED Code Status Onset Date Resolution Date Notes Provider Name and Address Organization Details Recorded Time Essential hypertensSunnova n [id number] Active Cathy Dunbar MD Attn: Robi stratton,[address] [facility], [place], [address], [place] [facility] 5 12:16:19 Pain of bilateral hands 8515540744735 9109 Active 2024 Leanna Dempsey MA null, [place] [facility] 5 15:30:29 Mixed hyperlipide bonifacio 843678410 Active 2024 Jocy Linares MD Attn: Robi stratton,[address] [facility], [place], [address], [place] [facility] 5 22:33:13 Obese class I 5786077695141 07 Active 2024 Jocy Linares MD Attn: Robi stratton,[address], [place], [address], [facility] 5 22:33:22 Problem Notes None recorded. Procedures Surgical History Date Name Laterality Status Provider Name and Address Organization Details Recorded Time 2 Back Surgery completed Aida Sheikh MA [facility] 10/19/2024 12:03:15 0 Back Surgery completed Aida Sheikh MA [facility] 10/19/2024 12:03:12 Imaging Results None recorded. Procedure Notes None recorded. Medical Equipment None [...] completed Not Available Not Available Not Available naproxen 500 mg tablet TAKE 1 TABLET BY MOUTH TWICE DAILY 07/26 completed Not Available Not Available Not Available [...] blood by Pulse oximetry Heart rate Systolic And Diastolic Provider Name and Address Organization Details Last Updated DateTime 3 172.09 cm 31 kg/m2 09042.0 9 g 98 % 98 % 73 /min 134/82 mm[Hg] Naya Ochoa [place] - [facility] 3 11:52:19 Date Recorded Body height Body mass index (BMI) Body weight Oxygen saturation Oxygen saturation in Arterial blood by Pulse oximetry Heart rate Systolic And Diastolic Provider Name and Address Organization Details Last Updated DateTime 3 172.09 cm 31.4 kg/m2 01862.8 7 g 97 % 97 % 71 /min 136/86 mm[Hg] Naya Ochoa [place] [facility] 3 12:11:58 Date Recorded Body height Body mass index (BMI) Body weight Heart rate Oxygen saturation Oxygen saturation in Arterial blood by Pulse oximetry Systolic And Diastolic Provider Name and Address Organization Details Last Updated DateTime 5 172.09 cm 31.1 kg/m2 81503.9 7 g 68 /min 98 % 98 % 134/70 mm[Hg] Aida Sheikh MA [facility] 5 14:42:43 Date Recorded Body height Body mass index (BMI) Body weight Body temperature Oxygen saturation Oxygen saturation in Arterial blood by Pulse oximetry Heart rate Systolic And Diastolic Provider Name and Address Organization Details Last Updated DateTime 2 172.09 cm 31.5 kg/m2 06532.8 7 g 98 [degF] 98 % 98 % 61 /min 132/84 mm[Hg] Emigdio Talavera MA [facility] 2 12:44:01 Date Recorded Body height Body mass index (BMI) Body weight Oxygen saturation Oxygen saturation in Arterial blood by Pulse oximetry Heart rate Body temperature Systolic And Diastolic Provider Name and Address Organization Details Last Updated DateTime 4 172.09 cm 31 kg/m2 61700.1 g 95 % 95 % 69 /min 98.7 [degF] 160/104 mm[Hg] Naya Ochoa MA [facility] 4 15:51:04 Date Recorded Body height Body mass index (BMI) Body weight Heart rate Oxygen saturation Oxygen saturation in Arterial blood by Pulse oximetry Systolic And Diastolic Provider Name and Address Organization Details Last Updated DateTime 4 172.09 cm 32.4 kg/m2 67502.8 6 g 77 /min 97 % 97 % 132/68 mm[Hg] Aida Sheikh MA [facility] 4 12:05:33 Social History Question Answer Notes LastModified by Organizat ion Details LastModified Time Tobacco Smoking Status Never Smoker Emigdio Talavera MA null, [facility] 08/29/2018 10:59:51 Do You Have An Advance Directive? No Information n ot available 02/08/2022 Are You Blind Or Do You Have Difficulty Seeing? No Information n ot available 10/19/2024 What Is Your Level Of Caffeine Consumption? None Information not available 02/08/2022 In The 14 Days Before Symptom Onset, Have You Had Close Contact With A Laboratory-confirm ed COVID-19 While That Case Was Ill? No Information n ot available 10/19/2024 In The 14 Days Before Symptom Onset, Have You Had Close Contact With A Person Who Is Under Investigation For COVID-19 While That Person Was Ill? No Information not available 10/19/2024 Have You Been To An Area Known To Be High Risk For COVID-19? No Information not available 10/19/2024 Are You Deaf Or Do You Have Serious Difficulty Hearing? No Information not available 10/19/2024 What Type Of Diet Are You Following? REGULAR Information n ot available 10/19/2024 Are There Any Guns Present In Your Home? No Information not available 10/19/2024 What Was The Date Of Your Most Recent Tobacco Screening? 04/18/2025 Information not available 04/18/2025 What Is Your Relationship Status? Information not [...] Functional Status Question Answer Note LastModified by Organizat ion Details LastModified Time Do you use any illicit or recreational drugs? Yes sometimes marijuana Information not available 02/08/2022 What is your level of alcohol consumption? Occasional Information not available 10/19/2024 Are you currently employed? Yes Information not available 10/19/2024 Are you able to care for yourself independently? 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 [...] Reflux (GERD) N Cancer N Stroke N Headaches N Kidney or Bladder Problems N Skin Problems N Asthma N Allergies N Hepatitis N High Cholesterol N Liver Disease N Thyroid Problems N GI Problems N Anemia N Heart Attack (SC) N Diabetes N Seizures/Epilepsy N Heart Failure N Osteoporosis N Immunizations Vaccine Type Date Status Note Provider Nam e and Address Organization Details Recorded Time Influenza, split virus, quadrivalent, preservative 1 completed Emigdio Talavera MA null, [place] [facility] 08/17/2021 16:58:15 Influenza, split virus, quadrivalent, preservative 3 completed Naya Ochoa [place] null, [place] [facility] 12/10/2022 14:26:52 Past Encounters Encounter ID Performer Location Encounter Start Date Encounter Closed Date Diagnosis/Indication Diagnosis SNOMED-CT Code Diagnosis ICD10 Code Diagnosis IMO Codes Diagnosis Note [id number] MD Oseas Cervantes (Adult Med) [address] [place] [address] 02/27/2015 10:51:31 02/27/2015 12:10:57 Essential hypertension 02126274 [id number] MD Oseas Cervantes (Adult Med) [address] [place] [address] 08/29/2018 10:30:21 08/29/2018 11:39:01 Pain of left elbow joint 8193806263 4631759 M25.522 Discussed with patient. Bilateral hearing loss 94149332 H91.93 Essential hypertension 47384716 I10 Low salt diet, avoid NSAID, such as advil, ibuprofen or aspirin. Will put in medication . [id number] Cathy Dunbar MD [facility] [address] [place] [phone] 12/18/2019 12:23:07 12/18/2019 13:15:54 Essential hypertension 29807133 I10 Low salt diet, avoid NSAID, such as advil, ibuprofen or aspirin. Will put in medication . Hearing disorder 0533156 05 H91.93 Wax build up. Discussed with patient, he can buy some device at [facility] for self-clean ing . [id number] MD Oseas Cervantes (Adult Med) [address] [place] [id number] 06/03/2020 10:17:11 06/04/2020 15:14:02 Lumbar radiculopathy 190776800 M54.16 Discussed with patient, he agreed to try medication s as prescribed . [id number] [facility] [address] [place] [phone] 06/13/2020 11:43:27 06/16/2020 21:35:12 Lumbar spondylosis 071932905 M47.896 Medication s as ordered below. Impotence 676360095 N52. 9 Discussed with patient, he wants to try viagra. Lumbar radiculopathy 128 330528 M54.16 Discussed with patient, he agreed to try medication s as prescribed . [id number] MD Oseas Cervantes (Adult Med) [address] [place] [phone] 09/11/2020 10:51:04 09/12/2020 08:34:35 Right side sciatica 7578423205 69133 M54.31 Will try gabapentin and kketorolac for the relief of pain and discomfort , he agreed to try again. Stiff lower back as usual. Essential hypertension 68978343 I10 Low salt diet, avoid NSAID, such as advil, ibuprofen or aspirin. Will put in medication . He ran out medication for hypertensi on, will refill. Complainin g of erectile dysfunction 108219821 N52.9 Will increase dose of viagra., he agreed. [id number] Cathy Dunbar MD [facility] [address] [place] [phone] 05/07/2021 09:48:09 05/11/2021 11:58:46 Chronic low back pain 316363786 M54.5 Arthritis and mild spinal stenosis. left sciatica. S/T post lower back operation. Avoid bend over or pick/carry more than he can handle. 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 He agreed to try can and brace, he has walker at home. Positive SLRT on the left side at 45 degrees in supine position. Essential hypertension 59164761 I10 Low salt diet, avoid NSAID, such as advil, ibuprofen or aspirin. Also avoid OTC decongesta nt if possible Will put in medication . He ran out medication for hypertensi on, or may be he has lower back pain will refill. Will order losartan with HCTZ, hopefully to bring down the Blood pressure to safer range, he agreed to try. [id number] MD Oseas Cervantes (Adult Med) [address] [place] [phone] 08/10/2021 12:52:49 08/12/2021 10:36:05 Hypertensive disorder 07417707 I10 Discussed with patient, he agreed for the add on med to controll the BP to the safer level. Administra tion of influenza vaccine 81092095 Z23 Patient tolerated shot well. Chronic low back pain 27 3433964 M54.50 Under the care of his neurosurge on. [id number] MD Oseas Cervantes (Adult Med) [address] [place] [phone] 11/09/2021 11:25:29 11/10/2021 10:17:42 Chronic low back pain 611112947 M54.50 Under the care of his neurosurge on.. Called the pharmacy to refill ibuprofen and gabapentin . today 11-09-2021 . Essential hypertension 99739257 I10 Low salt diet, avoid NSAID, such [...] today is 142/86 mm HG. 11-09-2021 . [id number] MD Oseas Cervantes (Adult Med) [address] [place] [phone] 02/08/2022 11:26:35 02/09/2022 15:25:28 Prolapsed lumbar intervertebral disc 090992801 M51.26 Pain radiating to left leg all [...] provided to patient today. Hypertensive disorder 38 863806 I10 Discussed with patient, he agreed for the add on med to controll the BP to the safer level. Blood pressure reading is 132/82 mm HG today 02-08-2022 . [id number] MD Oseas Cervantes (Adult Med) [address] [place] [address] 04/23/2022 12:03:15 04/27/2022 11:44:12 Essential hypertension 12376576 I10 Low salt diet, avoid NSAID, such [...] 132/84 . Chronic low back pain 27 2851945 M54.50 Under the care of his neurosurge on.. Called the pharmacy to refill ibuprofen and gabapentin . today 01-03-2022 .. stable. able to ambulating without assistance . [id number] Cathy Dunbar MD [facility] ([facility]ult [facility]) [address] [place] [address] 12/10/2022 11:38:35 12/13/2022 14:27:52 Obesity 685862975 E66.9 BMI is 31. , low salt diet, exercise and keep the weight down. Administra tion of influenza vaccine 44026195 Z23 Patient tolerated shot well. Essential hypertension 60875968 I10 Low salt diet, avoid NSAID, such [...] agreed. Screening for malignant neoplasm of colon 500967827 Z12.11 He agreed. [id number] Cathy Dunbar MD [facility] ([facility]ult [facility]) [address] [place] [phone] 03/08/2023 11:59:52 03/10/2023 13:08:09 Chronic low back pain 903298608 M54.50 Under the care of his neurosurge on.. Called the pharmacy to refill ibuprofen and gabapentin . today 11-09-2021 .. stable. able to ambulating without assistance . He is going to [facility], he will make appointmen t with them. Essential hypertension 75624152 I10 Low salt diet, avoid NSAID, such [...] refill will monitor BP . Morbid obesity 259617424 E66.01 Low salt diet, exercise and keep the weight down. BMI is 31.4. [id number] Jocy Linares MD [facility] (Adult Med) [address] [place] [address] 10/19/2024 11:49:08 10/19/2024 13:28:37 Essential hypertension 07923710 I10 Screening for malignant neoplasm of prostate 366438822 Z12.5 Pain of elbow region 743 58117 M25.522 Pain of bi lateral hands 3281187782 2994745 M79.739 [id number] Jocy Linares MD [facility] [address] [place] [phone] 04/18/2025 14:09:14 04/18/2025 15:36:39 Obese class I 1246747122 93507 E66.811 7841919000 BMI 31.1 Essential hypertension 18030908 I10 Pain of bi lateral hands 9140586762 0664070 M79.641 M79.642 [id number] Screening for malignant neoplasm of colon 009997408 Z12.11 699166 Mixed hyperlipidemia 267 136471 E78.2 [id number] Health Concerns Section Related Observation LastModified by Organization Detai ls LastModified Time None Recorded Concern Status LastModified by Organization Details LastModified Time None Recorded Advance Directives Directive N: Payers Insurance Date Sequence Insurance Name Policy Number Policy Thacker Covered Member ID Thacker Member ID Guarantor Name 04/18/2025 1 [employer] [id number] Antwane Givens [id number] Antwane Givens Sr 05/28/2024 3 [employer] - [employer] (POS) [id number] Antwane Givens Sr [id number] Antwane Givens Sr 04/18/2025 1 [employer] - [employer] (PPO) [id number] Antwane Givens Sr [id number] Antwane Givens Sr 05/28/2024 3 [employer] Antwane Givens Sr [id number] Antwane Givens Sr 05/28/2024 2 [employer] Antwane Givens Sr [id number] Antwane Givens Sr 05/28/2024 1 [facility] (PPO) [id number] Antwane Givens [id number] Antwane Givens Sr 04/18/2025 1 [facility] [id number] Antwane Givens [id number] Antwane Givens Sr 05/28/2024 1 [facility] (MEDICAID HMO) [id number] Antwane Givens [id number] Antwane Givens Sr 05/28/2024 2 [facility] (PPO) Antwane Givens [id number] Antwane Givens Sr Notes Date Note Type Note Provider Name and Address Organization Details Recorded Time 04/23/2022 text/html ROS as noted in the HPI Office visit, hypertension , wants to refill medications.NKDA. Cathy Dunbar MD Attn: Account[address] [place], [address], [facility] 04/23/2022 18:03:48 12/10/2022 text/html ROS as noted in the HPI Office visit, NKDA. history of hypertension. on losartan/HCTZ. he has not taken metoprolol for a while. Also will screen for colon cancer , he agreed. CATARINO Velazquez, [facility] 12/10/2022 14:17:13 03/08/2023 text/html ROS as noted in the HPI Office visit. NKDA. had lower back operations twice. Still stiff , some soreness, will need PT for about one month. he claims that he can perform the regular job but needs FMLA form filled out. 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
--- OUTSIDE RECORDS SUMMARY | 2025-08-12 20:08 | XMS_ITS | Clinical Summary ---
Author Organization [facility] Address [address] [place] [address] Phone Care Team Providers Care Line Driver Name Role Phone Cathy Dunbar MD Primary Care Provider [phone] Allergies No known active allergies Medications losartan-hydroCHLO [...] on file Legal Sex Male 11:54 AM [employer] Gender Identity Not on file Sexual Orientation [...] (#1) 2025 Medical Devices Implanted Type Area Chief Engineer Research Device Identifier Shelf Expiration Date Model / Serial / Lot 8.5-13mm Expandable Tlif [id number] Degrees Implanted:Qty: 1 on 02/17/2022 by Edvin Bernard MD at [facility] Cage Left: Spine Lumbar ZAVATION [id number] 02/16/2022 / [id number] Description:1X ADD XIMENA REQ# [id number] Hemostatic Surgiflo 8ml W/Thrombin 2994 - [id number] Implanted:Qty: 1 on 10/29/2020 by Edvin Bernard MD at [facility] Hemostatic Left: Spine Lumbar [employer]- [employer] 11/06/2021 2994 / / [id number] Putty Graft I-Factor Peptide Enhanced 5.0ml Syr 700-050 - Sna Implanted:Qty: 1 on 02/17/2022 by Edvin Bernard MD at [facility] Putty Left: Spine Lumbar [employer] 09/06/2024 700-050 / NA / [id number] Description:XIMENA REQ# [id number] 40mm Pre-Lordosed Toño Implanted:Qty: 2 on 02/17/2022 by Edvin Bernard MD at [facility] Toño Left: Spine Lumbar [employer] [id number] / 02/16/2022 / Description:1X ADD Set Screw Nxg Implanted:Qty: 4 on 02/17/2022 by Edvin Bernard MD at [facility] Screw Left: Spine Lumbar [employer] 36-2000 / 02/16/2022 / Description:1X ADD XIMENA REQ# [id number] 7.5mm X 45mm Modular Midline Fixation Screw Implanted:Qty: 4 on 02/17/2022 by Edvin Bernard MD at [facility] Screw Left: Spine Lumbar [employer] 36-5 / 02/16/2022 / Description:1X ADD Body, Top Loading Nxg Implanted:Qty: 4 on 02/17/2022 by Edvin Bernard MD at [facility] Spine Left: Spine Lumbar [employer] 36-2100 / 02/16/2022 / Description:1X ADD Gel Allofuse Dbm 5ml [id number] - Sna Implanted:Qty: 1 on 02/17/2022 by Edvin Bernard MD at [facility] Tissue Left: Spine Lumbar [employer] 03/20/2024 [id number] / NA / [id number] Description: BR Requisition: [id number] Putty Allofuse+ Dbm 5ml [id number] - Sna Implanted:Qty: 1 on 02/17/2022 by Edvin Bernard MD at [facility] Tissue Left: Spine Lumbar [employer] 09/19/2023 [id number] / NA / [id number] Description: BR Requisition: [id number] Explanted Type Area Chief Engineer Research Device Identifier Shelf Expiration Date Model / Serial / Lot Hemostatic Surgiflo 8ml W/ Thrombin 2994 - Sna Explanted:Qty: 1 on 02/17/2022 by Edvin Bernard MD at [facility] Hemostatic Left: Spine Lumbar [employer] 05/06/2023 2994 / NA / [id number] Insurance [place] [employer] [place] RX [employer] Express RX [facility] [employer] Advance Directives For more information, please contact: [phone] * Full Code (Latest Code Status on File) Date Activated Date Inactivated Comments 02/17/2022 4:46 PM 02/18/2022 7:46 PM Care Teams Line Driver Relationship Specialty Start Date End Date Cathy Dunbar MD [address] [place] [address] PCP - General Internal Medicine 10/17/20
== END 2025-08-12 20:27 | disposition home or self-care (01) ==
LOC: ANHED 20:06
PROVIDERS: Emergency Provider Physician Assistant; PCP Internal Medicine
DX: S16.1XXA Strain of muscle, fascia and tendon at neck level, initial encounter (principal); I10 Essential (primary) hypertension; V49.40XA Driver injured in collision with unspecified motor vehicles in traffic accident, initial encounter
CPT/HCPCS: 72125; 72131; 99284; A9270